=== PATIENT | female | born 1950 | race Caucasian/White ===

== ENCOUNTER 2021-06-06 11:12 | Inpatient (IN) ==
[~2021-06-06 11:12] MED LIST: DOPamine 400MG / 250ML D5W IV ONE; NOREPINEPHRINE/D5W 8 MG/508 ML IV ONE; RAPID SEQUENCE INDUCTION BAG ONE
[2021-06-06] MEDS ORDERED: SODIUM CHLORIDE 0.9% 1000ML 1,000 ML IV ONE ×2 (11:24→14:08)
[2021-06-06] MEDS ORDERED: CEFEPIME 2,000 MG/20 ML VIAL IV STA (11:24)
--- NOTE | 2021-06-06 11:30 | Emergency Department Note ---
Impression & Plan Cardiac arrest due to respiratory disorder, Acute respiratory acidosis, Pulmonary edema, Acute UTI (urinary tract infection), Pleural effusion, bilateral ED Provider Note NAME: GABE LOERA AGE: 70 SEX: F : 1950 ARRIVES VIA: Ambulance INFORMANT: The patient's daughter, EMS personnel ED PROVIDER(S): Kishan Palma DO CHIEF COMPLAINT: Cardiac arrest HPI: The patient is a 70-year-old female who presented to the emergency department for an evaluation after having cardiac arrest. The patient's daughter called 911. The patient was having shortness of breath. Her daughter states that she has had worsening shortness of breath over the course of the last few months. This is gotten worse over the last few days. She did not have a cough but she has had significant shortness of breath especially with exertion. She is set for a cardiac work-up as they thought she might be having CHF. She started having worsening symptoms today 911 was called. The paramedics found the patient in severe respiratory distress with oxygen saturations in the 50s. They felt she needed to be intubated. The patient was given ketamine to try to facilitate intubation but they were unsuccessful. Ultimately the patient had an I gel airway placed. The patient did lose pulses and required CPR for short period of time but came back with atropine and epinephrine. She arrived at the emergency department with the advanced airway in place with a pulse and a blood pressure. The patient was still not able to answer questions as she was given sedation for endotracheal intubation attempts. The patient had seen a dentist recently for an oral infection and was taking clindamycin. According to her daughter she has had no abdominal pain or chest pain. She has had no syncope. The patient does have a history of sepsis in the past also has a history of ovarian and breast cancer. ROS: See above HPI for pertinent positives & negatives. A total of 10 systems reviewed and were otherwise negative. PAST MEDICAL HISTORY: See Below PAST SURGICAL HISTORY: See Below FAMILY HISTORY: See Below SOCIAL HISTORY: See Below HOME MEDICATIONS: See Below ALLERGIES: See Below VITALS: See Below PHYSICAL EXAMINATION: GENERAL: The patient does not follow commands or answer questions. EYES: The conjunctivae are clear. The pupils are round and reactive. EARS, NOSE, MOUTH AND THROAT: The nose is without any evidence of any deformity. I gel is in place. NECK: The neck is nontender and supple. RESPIRATORY: Respirations are noted with bagging. CARDIOVASCULAR: Regular rate and rhythm noted there no murmurs rubs or gallops normal S1 normal S2. GASTROINTESTINAL: The abdomen is soft. Abdomen is nontender. MUSCULOSKELETAL/EXTREMITIES: There is no evidence of gross deformity full range of motion is noted in the hips and shoulders. SKIN: The skin is cold and pale. There is pedal edema bilaterally. NEUROLOGIC: GCS of 3 intubated. MEDICAL DECISION MAKING: The patient is a 70-year-old female who presented to the emergency department for an evaluation after having a respiratory arrest. The patient was found to have bilateral pleural effusions and respiratory acidosis. She also was found to have signs of infection in her mandibular area. The patient was started on clindamycin recently for a dental infection. I discussed the patient's laboratory and radiographic studies with her family members. I also discussed her case with the on-call [facility]ist. The patient was treated with IV fluid boluses in the emergency department. She was stable on the ventilator. She was placed on sedation. I discussed her case with the statement clerk group. She was given IV fluids and IV antibiotics in emergency department. The patient may require thoracentesis. According to the patient's daughter she does not have known metastatic disease but has had ovarian cancer as well as breast cancer. She also has a history of leukemia. Triage Nursing notes reviewed. Prior medical records reviewed Vital Signs: reviewed and remarkable for hypotension and bradycardia. Differential diagnosis: Reactive airway disease, pneumonia, pneumothorax, COPD, CHF, infections, cardiac ischemia, pulmonary embolism, musculoskeletal, gastrointestinal, as well as other pathologies. ER treatment provided: See below Diagnostics interpreted by me: ECG: EKG was obtained in the emergency department. My interpretation is normal sinus rhythm at 67 bpm. There is no ectopy. There is no acute ST segment abnormalities noted. No previous tracing was available. Cardiac Monitoring: An order was placed for continuous cardiac monitoring. The monitor shows a rate of 55 bpm with sinus bradycardia cardiac rhythm. Laboratory studies: As stated above and show below. Imaging studies: See below Consultation(s): I discussed this case with Dr. Shabazz who is on-call for the [facility] hospitalist group. They will evaluate the patient in the emergency department for further management and disposition. I discussed this case with Dr. Norman who is on-call for the statement clerk. ED COURSE: Procedures: Endotracheal Intubation Indication respiratory arrest. The patient was on 100% oxygen via NRB prior to the procedure. Suction, airway equipment, RSI drugs, respiratory equipment, and appropriate personnel were prepared prior to the initiation of the procedure. A time out was taken. Induction was performed with fentanyl and rocuronium. After observing the clinical benefit of the medications, the airway was easily visualized utilizing a glide scope. A 7.5 size ETT tube was placed atraumatically to 23 cm using standard technique. The cuff inflated without signs of malfunction. There were bilateral breath sounds, positive colormetric change, no gastric sounds, a good capnography waveform, and post procedure pulse oximetry was 96%. Post intubation sedation and paralysis was anticipated but not started yet. There were no complications. PDMP:reviewed and no issues Critical Care: I have personally spent greater than 55 minutes of critical care time in the d irect management of this patient. This includes bedside care, interpretation of diagnostic studies, and testing, discussion with consultants, patient, and family members, and other required patient management activities. This 55 minutes is in excess of all separately billable procedures. Past Med/Surg History Medical History Atrial fibrillation History of breast cancer History of ovarian cancer Hypertension Sepsis Surgical History H/O mastectomy Hx of cholecystectomy S/P MICHEL-BSO Social History Smoking Status: Never smoker Feels Safe at Home: Yes Allergies Allergies Allergy/AdvReac Type Severity Reaction Status Date / Time amoxicillin Allergy Unknown Unverified 06/06/21 12:18 Home Meds Home Medications Medication Instructions Recorded Confirmed acetaminophen 325 mg tablet 325 mg PO QID PRN 06/06/21 06/06/21 amiodarone 100 mg tablet 100 mg PO DAILY 06/06/21 06/06/21 amlodipine 10 mg tablet 10 mg PO DAILY 06/06/21 06/06/21 bosutinib 400 mg tablet (Bosulif) 400 mg PO DAILY 06/06/21 06/06/21 clindamycin HCl 300 mg capsule 300 mg PO TID 06/06/21 06/06/21 furosemide 40 mg tablet 40 mg PO BID 06/06/21 06/06/21 levothyroxine 75 mcg tablet 75 mcg PO DAILY 06/06/21 06/06/21 metoprolol tartrate 25 mg tablet 25 mg PO BID 06/06/21 06/06/21 ggypfleh-ifwdtfc-hwmh-iron 18 1 tab PO DAILY 06/06/21 06/06/21 mg-FA 400 mcg-vit K 25 mcg tablet (One-A-Day Women's Complete) polysaccharide iron complex 150 mg 150 mg PO DAILY 06/06/21 06/06/21 iron capsule (Ferrex) potassium chloride 20 mEq See Rx Instructions .ROUTE .COMPLEX 06/06/21 06/06/21 tablet,extended release(part/cryst) (Klor-Con M) rivaroxaban 20 mg tablet (Xarelto) 20 mg PO HS 06/06/21 06/06/21 Results & Data (ED) Vital Signs Vital Signs - 24 hr 06/06/21 11:16 06/06/21 11:20 06/06/21 11:26 Pulse Rate 68 66 Pulse Rate [Right Apical] Pulse Rate from SpO2 Sensor 66 Pulse Rhythm Regular Pulse Rhythm [Right Apical] Pulse Strength Normal Respiratory Rate 24 15 Respiratory Effort / Characteristics Mechanically Ventilated Respiratory Depth Normal Respiratory Pattern Regular Blood Pressure 102/51 L Blood Pressure [Right Calf] Blood Pressure Mean 68 Blood Pressure Mean [Right Calf] Blood Pressure Position Lying Blood Pressure Position [Right Calf] Pulse Oximetry 96 98 Oxygen Delivery Method Mechanical Vent Ambu-Bag Fraction of Inspired Oxygen SaO2/FiO2 Ratio Sepsis Recent Fever Within 48 Hours No Sepsis New/Unexplained Change in Mental Status N/A Sepsis Action Taken by Nursing No Action Required End-Tidal CO2 End Tidal CO2 (18-54mmHg) 06/06/21 11:27 06/06/21 11:28 06/06/21 11:30 Pulse Rate 61 Pulse Rate [Right Apical] Pulse Rate from SpO2 Sensor 61 Pulse Rhythm Pulse Rhythm [Right Apical] Pulse Strength Respiratory Rate 18 Respiratory Effort / Characteristics Mechanically Ventilated Respiratory Depth Respiratory Pattern Blood Pressure Blood Pressure [Right Calf] Blood Pressure Mean Blood Pressure Mean [Right Calf] Blood Pressure Position Blood Pressure Position [Right Calf] Pulse Oximetry 100 100 Oxygen Delivery Method Mechanical Vent Fraction of Inspired Oxygen SaO2/FiO2 Ratio Sepsis Recent Fever Within 48 Hours Sepsis New/Unexplained Change in Mental Status Sepsis Action Taken by Nursing End-Tidal CO2 End Tidal CO2 (18-54mmHg) 06/06/21 11:38 06/06/21 11:40 06/06/21 12:30 Pulse Rate 61 60 Pulse Rate [Right Apical] Pulse Rate from SpO2 Sensor 64 Pulse Rhythm Pulse Rhythm [Right Apical] Pulse Strength Respiratory Rate 22 23 22 Respiratory Effort / Characteristics Respiratory Depth Respiratory Pattern Blood Pressure 94/47 L Blood Pressure [Right Calf] Blood Pressure Mean 62 Blood Pressure Mean [Right Calf] Blood Pressure Position Blood Pressure Position [Right Calf] Pulse Oximetry 98 96 Oxygen Delivery Method Fraction of Inspired Oxygen 100 60 SaO2/FiO2 Ratio Sepsis Recent Fever Within 48 Hours Sepsis New/Unexplained Change in Mental Status Sepsis Action Taken by Nursing End-Tidal CO2 55 54 End Tidal CO2 (18-54mmHg) 06/06/21 12:37 06/06/21 12:58 06/06/21 13:02 Pulse Rate Pulse Rate [Right Apical] 63 65 63 Pulse Rate from SpO2 Sensor Pulse Rhythm Pulse Rhythm [Right Apical] Pulse Strength Respiratory Rate 22 24 24 Respiratory Effort / Characteristics Mechanically Ventilated Mechanically Ventilated Respiratory Depth Respiratory Pattern Blood Pressure Blood Pressure [Right Calf] 136/44 L 140/52 L 146/55 H Blood Pressure Mean Blood Pressure Mean [Right Calf] 74 81 85 Blood Pressure Position Blood Pressure Position [Right Calf] Lying Lying Pulse Oximetry 96 95 95 Oxygen Delivery Method Mechanical Vent Mechanical Vent Mechanical Vent Fraction of Inspired Oxygen 60 SaO2/FiO2 Ratio 160 Sepsis Recent Fever Within 48 Hours Sepsis New/Unexplained Change in Mental Status Sepsis Action Taken by Nursing End-Tidal CO2 End Tidal CO2 (18-54mmHg) 47 06/06/21 13:15 06/06/21 13:30 06/06/21 13:40 Pulse Rate 63 63 Pulse Rate [Right Apical] 62 Pulse Rate from SpO2 Sensor 62 63 Pulse Rhythm Pulse Rhythm [Right Apical] Regular Pulse Strength Respiratory Rate 24 27 H 29 H Respiratory Effort / Characteristics Respiratory Depth Respiratory Pattern Blood Pressure 149/56 H Blood Pressure [Right Calf] 150/62 H Blood Pressure Mean 87 Blood Pressure Mean [Right Calf] 91 Blood Pressure Position Blood Pressure Position [Right Calf] Pulse Oximetry 96 92 91 Oxygen Delivery Method Mechanical Vent Mechanical Vent Fraction of Inspired Oxygen SaO2/FiO2 Ratio Sepsis Recent Fever Within 48 Hours Sepsis New/Unexplained Change in Mental Status Sepsis Action Taken by Nursing End-Tidal CO2 40 40 End Tidal CO2 (18-54mmHg) 06/06/21 13:45 06/06/21 13:50 06/06/21 14:00 Pulse Rate 61 59 L Pulse Rate [Right Apical] 61 59 L Pulse Rate from SpO2 Sensor 62 60 Pulse Rhythm Pulse Rhythm [Right Apical] Pulse Strength Respiratory Rate 28 H 29 H 32 H Respiratory Effort / Characteristics Mechanically Ventilated Respiratory Depth Normal Respiratory Pattern Blood Pressure Blood Pressure [Right Calf] 141/70 H 135/51 L Blood Pressure Mean Blood Pressure Mean [Right Calf] 93 79 Blood Pressure Position Blood Pressure Position [Right Calf] Lying Lying Pulse Oximetry 93 95 90 Oxygen Delivery Method Mechanical Vent Mechanical Vent Fraction of Inspired Oxygen SaO2/FiO2 Ratio Sepsis Recent Fever Within 48 Hours Sepsis New/Unexplained Change in Mental Status Sepsis Action Taken by Nursing End-Tidal CO2 39 43 End Tidal CO2 (18-54mmHg) 06/06/21 14:10 06/06/21 14:15 06/06/21 14:21 Pulse Rate 59 L 56 L Pulse Rate [Right Apical] 58 L Pulse Rate from SpO2 Sensor 59 L 56 L Pulse Rhythm Pulse Rhythm [Right Apical] Pulse Strength Respiratory Rate 27 H 25 H 22 Respiratory Effort / Characteristics Respiratory Depth Respiratory Pattern Blood Pressure Blood Pressure [Right Calf] 118/48 L Blood Pressure Mean Blood Pressure Mean [Right Calf] 71 Blood Pressure Position Blood Pressure Position [Right Calf] Pulse Oximetry 83 L 90 84 L Oxygen Delivery Method Mechanical Vent Fraction of Inspired Oxygen SaO2/FiO2 Ratio Sepsis Recent Fever Within 48 Hours Sepsis New/Unexplained Change in Mental Status Sepsis Action Taken by Nursing End-Tidal CO2 40 43 End Tidal CO2 (18-54mmHg) 06/06/21 14:30 06/06/21 14:40 Pulse Rate 55 L 55 L Pulse Rate [Right Apical] Pulse Rate from SpO2 Sensor 55 L 55 L Pulse Rhythm Pulse Rhythm [Right Apical] Pulse Strength Respiratory Rate 22 22 Respiratory Effort / Characteristics Respiratory Depth Respiratory Pattern Blood Pressure 96/53 L 95/55 L Blood Pressure [Right Calf] Blood Pressure Mean 67 68 Blood Pressure Mean [Right Calf] Blood Pressure Position Blood Pressure Position [Right Calf] Pulse Oximetry 94 94 Oxygen Delivery Method Fraction of Inspired Oxygen 80 SaO2/FiO2 Ratio Sepsis Recent Fever Within 48 Hours Sepsis New/Unexplained Change in Mental Status Sepsis Action Taken by Nursing End-Tidal CO2 42 44 End Tidal CO2 (18-54mmHg) Home Medications Current Medication List: was personally reviewed by me Laboratory Data Attestation: I reviewed the patient's lab results. Result diagrams: 06/06/21 11:20 06/06/21 11:20 Lab Results 06/06/21 06/06/21 06/06/21 Range/Units 11:20 11:20 11:20 WBC 13.44 H (4.8-10.8) K/uL RBC 4.35 (4.2-5.4) M/uL Hgb 10.3 L (12.0-16.0) g/dL POC Hgb (12.0-16.0) g/dl Hct 36.8 L (37-47) % POC Hct (37-47) % MCV 84.6 (80-100) fL MCH 23.7 L (25-34) pg MCHC 28.0 L (32-36) g/dL RDW Std Deviation 51.1 H (36.4-46.3) fL RDW Coeff of Kvng 16.6 H (11.5-14.5) % Plt Count 462 H (130-400) K/uL MPV 10.5 H (7.4-10.4) fL Immature Gran % (Auto) 0.7 % Neut % (Auto) 83.7 % Lymph % (Auto) 10.7 % [place] % (Auto) 4.5 % Eos % (Auto) 0.1 % Baso % (Auto) 0.3 % Neut # (Auto) 11.25 H (1.4-6.5) K/uL Lymph # (Auto) 1.44 (1.2-3.4) K/uL [place] # (Auto) 0.61 H (0.11-0.59) K/uL Eos # (Auto) 0.01 (0-0.5) K/uL Baso # (Auto) 0.04 (0-0.2) K/uL Immature Gran # (Auto) 0.09 H (0.00-0.02) K/uL Polychromasia 1+ Hypochromasia Present PT 14.6 H (9.0-12.0) Seconds INR 1.5 H (0.9-1.1) APTT 33.4 H (21.0-31.0) Seconds PTT Ratio 1.3 VBG pH (7.36-7.41) VBG pCO2 (38-50) mmHg VBG pO2 mmHg VBG HCO3 mmol/L VBG O2 Saturation % VBG Base Excess mEq/L Barometric Pressure mm/Hg POC Sodium (135-144) mmol/L Sodium 138 (136-145) mmol/L POC Potassium (3.3-5.0) mmol/L Potassium 3.8 (3.5-5.1) mmol/L POC Chloride (101-112) mmol/L Chloride 101 (98-107) mmol/L Carbon Dioxide 26 (21-32) mmol/L POC Total CO2 (24-31) mmol/L Anion Gap 11.0 (3-11) POC Anion Gap (16-25) mmol/L POC BUN (7-18) mg/dl BUN 38 H (7-18) mg/dl Creatinine 2.69 H (0.6-1.2) mg/dl POC Creatinine (0.6-1.3) mg/dl Est Cr Clr Drug Dosing 25.5 ml/min Est GFR ( Amer) 20.0 ml/min Est GFR (Non-Af Amer) 17.2 ml/min BUN/Creatinine Ratio 14.2 (10-20) Glucose 214 H (70-99) mg/dl POC Glucose (other) (70-99) mg/dl Lactate (0.4-2.0) mmol/L Calcium 8.1 L (8.5-10.1) mg/dl POC Ioniz Calcium Opal (1.12-1.32) mmol/l Magnesium 2.5 H (1.8-2.4) mg/dl Total Bilirubin 0.6 (0.2-1) mg/dl AST 129 H (15-37) U/L ALT 145 H (12-78) Alkaline Phosphatase 172 H (45-117) U/L Troponin I 0.355 H* (0-0.045) ng/ml Total Protein 7.2 (6.4-8.2) gm/dl Albumin 3.2 L (3.4-5.0) gm/dl Globulin 4.0 (2.5-4.0) gm/dl Albumin/Globulin Ratio 0.8 L (0.9-2) Procalcitonin (0-0.5) ng/ml Urine Color Urine Appearance (Clear) Urine pH (4.5-7.5) Ur Specific [place] (1.000-1.030) Urine Protein (Negative) Urine Glucose (UA) (Negative) Urine Ketones (Negative) Urine Blood (Negative) Urine Nitrite (Negative) Urine Bilirubin (Negative) Urine Urobilinogen (Negative) Ur Leukocyte Esterase (Negative) Urine WBC (Auto) (0-5) /hpf Urine RBC (Auto) (0-4) /hpf U Hyaline Cast (Auto) (0-5) /lpf U Epithel Cells (Auto) (0-5) /lpf Urine Bacteria (Auto) (Negative) Ur Renal Epithelial Cell (0-5) /lpf Urine Mucus (None Prsent) Urine Yeast Adenovirus (PCR) (NotDetected) B. pertussis DNA (PCR) (NotDetected) B.parapertussis DNA PCR (NotDetected) C. pneumoniae DNA (PCR) (NotDetected) Coronavirus OC43 (PCR) (NotDetected) Coronavirus HKU1 (PCR) (NotDetected) Coronavirus 229E (PCR) (NotDetected) SARS-CoV-2 (PCR) (NotDetected) Coronavirus NL63 (PCR) (NotDetected) Human Metapneumovir PCR (NotDetected) Influenza Type A (PCR) (NotDetected) Influenza Type B (PCR) (NotDetected) M. pneumoniae (PCR) (NotDetected) Parainfluenza 1 (PCR) (NotDetected) Parainfluenza 2 (PCR) (NotDetected) Parainfluenza 3 (PCR) (NotDetected) Parainfluenza 4 (PCR) (NotDetected) RSV (PCR) (NotDetected) Entero/Rhino (PCR) (NotDetected) 06/06/21 06/06/21 06/06/21 Range/Units 11:20 11:20 11:20 WBC (4.8-10.8) K/uL RBC (4.2-5.4) M/uL Hgb (12.0-16.0) g/dL POC Hgb (12.0-16.0) g/dl Hct (37-47) % POC Hct (37-47) % MCV (80-100) fL MCH (25-34) pg MCHC (32-36) g/dL RDW Std Deviation (36.4-46.3) fL RDW Coeff of Kvng (11.5-14.5) % Plt Count (130-400) K/uL MPV (7.4-10.4) fL Immature Gran % (Auto) % Neut % (Auto) % Lymph % (Auto) % [place] % (Auto) % Eos % (Auto) % Baso % (Auto) % Neut # (Auto) (1.4-6.5) K/uL Lymph # (Auto) (1.2-3.4) K/uL [place] # (Auto) (0.11-0.59) K/uL Eos # (Auto) (0-0.5) K/uL Baso # (Auto) (0-0.2) K/uL Immature Gran # (Auto) (0.00-0.02) K/uL Polychromasia Hypochromasia PT (9.0-12.0) Seconds INR (0.9-1.1) APTT (21.0-31.0) Seconds PTT Ratio VBG pH 7.06 L (7.36-7.41) VBG pCO2 102 H (38-50) mmHg VBG pO2 58 mmHg VBG HCO3 28 mmol/L VBG O2 Saturation 74.6 % VBG Base Excess -4.1 mEq/L Barometric Pressure 722.4 mm/Hg POC Sodium (135-144) mmol/L Sodium (136-145) mmol/L POC Potassium (3.3-5.0) mmol/L Potassium (3.5-5.1) mmol/L POC Chloride (101-112) mmol/L Chloride (98-107) mmol/L Carbon Dioxide (21-32) mmol/L POC Total CO2 (24-31) mmol/L Anion Gap (3-11) POC Anion Gap (16-25) mmol/L POC BUN (7-18) mg/dl BUN (7-18) mg/dl Creatinine (0.6-1.2) mg/dl POC Creatinine (0.6-1.3) mg/dl Est Cr Clr Drug Dosing ml/min Est GFR ( Amer) ml/min Est GFR (Non-Af Amer) ml/min BUN/Creatinine Ratio (10-20) Glucose (70-99) mg/dl POC Glucose (other) (70-99) mg/dl Lactate 5.7 H* (0.4-2.0) mmol/L Calcium (8.5-10.1) mg/dl POC Ioniz Calcium Opal (1.12-1.32) mmol/l Magnesium (1.8-2.4) mg/dl Total Bilirubin (0.2-1) mg/dl AST (15-37) U/L ALT (12-78) Alkaline Phosphatase (45-117) U/L Troponin I (0-0.045) ng/ml Total Protein (6.4-8.2) gm/dl Albumin (3.4-5.0) gm/dl Globulin (2.5-4.0) gm/dl Albumin/Globulin Ratio (0.9-2) Procalcitonin 0.13 (0-0.5) ng/ml Urine Color Urine Appearance (Clear) Urine pH (4.5-7.5) Ur Specific [place] (1.000-1.030) Urine Protein (Negative) Urine Glucose (UA) (Negative) Urine Ketones (Negative) Urine Blood (Negative) Urine Nitrite (Negative) Urine Bilirubin (Negative) Urine Urobilinogen (Negative) Ur Leukocyte Esterase (Negative) Urine WBC (Auto) (0-5) /hpf Urine RBC (Auto) (0-4) /hpf U Hyaline Cast (Auto) (0-5) /lpf U Epithel Cells (Auto) (0-5) /lpf Urine Bacteria (Auto) (Negative) Ur Renal Epithelial Cell (0-5) /lpf Urine Mucus (None Prsent) Urine Yeast Adenovirus (PCR) (NotDetected) B. pertussis DNA (PCR) (NotDetected) B.parapertussis DNA PCR (NotDetected) C. pneumoniae DNA (PCR) (NotDetected) Coronavirus OC43 (PCR) (NotDetected) Coronavirus HKU1 (PCR) (NotDetected) Coronavirus 229E (PCR) (NotDetected) SARS-CoV-2 (PCR) (NotDetected) Coronavirus NL63 (PCR) (NotDetected) Human Metapneumovir PCR (NotDetected) Influenza Type A (PCR) (NotDetected) Influenza Type B (PCR) (NotDetected) M. pneumoniae (PCR) (NotDetected) Parainfluenza 1 (PCR) (NotDetected) Parainfluenza 2 (PCR) (NotDetected) Parainfluenza 3 (PCR) (NotDetected) Parainfluenza 4 (PCR) (NotDetected) RSV (PCR) (NotDetected) Entero/Rhino (PCR) (NotDetected) 06/06/21 06/06/21 06/06/21 Range/Units 11:24 11:30 11:41 WBC (4.8-10.8) K/uL RBC (4.2-5.4) M/uL Hgb (12.0-16.0) g/dL POC Hgb 12.6 (12.0-16.0) g/dl Hct (37-47) % POC Hct 37 (37-47) % MCV (80-100) fL MCH (25-34) pg MCHC (32-36) g/dL RDW Std Deviation (36.4-46.3) fL RDW Coeff of Kvng (11.5-14.5) % Plt Count (130-400) K/uL MPV (7.4-10.4) fL Immature Gran % (Auto) % Neut % (Auto) % Lymph % (Auto) % [place] % (Auto) % Eos % (Auto) % Baso % (Auto) % Neut # (Auto) (1.4-6.5) K/uL Lymph # (Auto) (1.2-3.4) K/uL [place] # (Auto) (0.11-0.59) K/uL Eos # (Auto) (0-0.5) K/uL Baso # (Auto) (0-0.2) K/uL Immature Gran # (Auto) (0.00-0.02) K/uL Polychromasia Hypochromasia PT (9.0-12.0) Seconds INR (0.9-1.1) APTT (21.0-31.0) Seconds PTT Ratio VBG pH (7.36-7.41) VBG pCO2 (38-50) mmHg VBG pO2 mmHg VBG HCO3 mmol/L VBG O2 Saturation % VBG Base Excess mEq/L Barometric Pressure mm/Hg POC Sodium 136 (135-144) mmol/L Sodium (136-145) mmol/L POC Potassium 3.8 (3.3-5.0) mmol/L Potassium (3.5-5.1) mmol/L POC Chloride 97 L (101-112) mmol/L Chloride (98-107) mmol/L Carbon Dioxide (21-32) mmol/L POC Total CO2 27 (24-31) mmol/L Anion Gap (3-11) POC Anion Gap 17.0 (16-25) mmol/L POC BUN 38 H (7-18) mg/dl BUN (7-18) mg/dl Creatinine (0.6-1.2) mg/dl POC Creatinine 2.4 H (0.6-1.3) mg/dl Est Cr Clr Drug Dosing ml/min Est GFR ( Amer) ml/min Est GFR (Non-Af Amer) ml/min BUN/Creatinine Ratio (10-20) Glucose (70-99) mg/dl POC Glucose (other) 210 H (70-99) mg/dl Lactate (0.4-2.0) mmol/L Calcium (8.5-10.1) mg/dl POC Ioniz Calcium Opal 1.14 (1.12-1.32) mmol/l Magnesium (1.8-2.4) mg/dl Total Bilirubin (0.2-1) mg/dl AST (15-37) U/L ALT (12-78) Alkaline Phosphatase (45-117) U/L Troponin I (0-0.045) ng/ml Total Protein (6.4-8.2) gm/dl Albumin (3.4-5.0) gm/dl Globulin (2.5-4.0) gm/dl Albumin/Globulin Ratio (0.9-2) Procalcitonin (0-0.5) ng/ml Urine Color Dark Yellow Urine Appearance Cloudy A (Clear) Urine pH 5.0 (4.5-7.5) Ur Specific [place] 1.020 (1.000-1.030) Urine Protein 2+ H (Negative) Urine Glucose (UA) Negative (Negative) Urine Ketones Trace H (Negative) Urine Blood Negative (Negative) Urine Nitrite Negative (Negative) Urine Bilirubin 1+ H (Negative) Urine Urobilinogen Negative (Negative) Ur Leukocyte Esterase 1+ H (Negative) Urine WBC (Auto) 10-30 H (0-5) /hpf Urine RBC (Auto) 0-4 (0-4) /hpf U Hyaline Cast (Auto) 10-30 H (0-5) /lpf U Epithel Cells (Auto) >30 H (0-5) /lpf Urine Bacteria (Auto) 1+ H (Negative) Ur Renal Epithelial Cell 5-10 H (0-5) /lpf Urine Mucus Present A (None Prsent) Urine Yeast Not Reportable Adenovirus (PCR) Not Detected (NotDetected) B. pertussis DNA (PCR) Not Detected (NotDetected) B.parapertussis DNA PCR Not Detected (NotDetected) C. pneumoniae DNA (PCR) Not Detected (NotDetected) Coronavirus OC43 (PCR) Not Detected (NotDetected) Coronavirus HKU1 (PCR) Not Detected (NotDetected) Coronavirus 229E (PCR) Not Detected (NotDetected) SARS-CoV-2 (PCR) Not Detected (NotDetected) Coronavirus NL63 (PCR) Not Detected (NotDetected) Human Metapneumovir PCR Not Detected (NotDetected) Influenza Type A (PCR) Not Detected (NotDetected) Influenza Type B (PCR) Not Detected (NotDetected) M. pneumoniae (PCR) Not Detected (NotDetected) Parainfluenza 1 (PCR) Not Detected (NotDetected) Parainfluenza 2 (PCR) Not Detected (NotDetected) Parainfluenza 3 (PCR) Not Detected (NotDetected) Parainfluenza 4 (PCR) Not Detected (NotDetected) RSV (PCR) Not Detected (NotDetected) Entero/Rhino (PCR) Not Detected (NotDetected) 06/06/21 Range/Units 13:01 WBC (4.8-10.8) K/uL RBC (4.2-5.4) M/uL Hgb (12.0-16.0) g/dL POC Hgb (12.0-16.0) g/dl Hct (37-47) % POC Hct (37-47) % MCV (80-100) fL MCH (25-34) pg MCHC (32-36) g/dL RDW Std Deviation (36.4-46.3) fL RDW Coeff of Kvng (11.5-14.5) % Plt Count (130-400) K/uL MPV (7.4-10.4) fL Immature Gran % (Auto) % Neut % (Auto) % Lymph % (Auto) % [place] % (Auto) % Eos % (Auto) % Baso % (Auto) % Neut # (Auto) (1.4-6.5) K/uL Lymph # (Auto) (1.2-3.4) K/uL [place] # (Auto) (0.11-0.59) K/uL Eos # (Auto) (0-0.5) K/uL Baso # (Auto) (0-0.2) K/uL Immature Gran # (Auto) (0.00-0.02) K/uL Polychromasia Hypochromasia PT (9.0-12.0) Seconds INR (0.9-1.1) APTT (21.0-31.0) Seconds PTT Ratio VBG pH (7.36-7.41) VBG pCO2 (38-50) mmHg VBG pO2 mmHg VBG HCO3 mmol/L VBG O2 Saturation % VBG Base Excess mEq/L Barometric Pressure mm/Hg POC Sodium (135-144) mmol/L Sodium (136-145) mmol/L POC Potassium (3.3-5.0) mmol/L Potassium (3.5-5.1) mmol/L POC Chloride (101-112) mmol/L Chloride (98-107) mmol/L Carbon Dioxide (21-32) mmol/L POC Total CO2 (24-31) mmol/L Anion Gap (3-11) POC Anion Gap (16-25) mmol/L POC BUN (7-18) mg/dl BUN (7-18) mg/dl Creatinine (0.6-1.2) mg/dl POC Creatinine (0.6-1.3) mg/dl Est Cr Clr Drug Dosing ml/min Est GFR ( Amer) ml/min Est GFR (Non-Af Amer) ml/min BUN/Creatinine Ratio (10-20) Glucose (70-99) mg/dl POC Glucose (other) (70-99) mg/dl Lactate 2.7 H* (0.4-2.0) mmol/L Calcium (8.5-10.1) mg/dl POC Ioniz Calcium Opal (1.12-1.32) mmol/l Magnesium (1.8-2.4) mg/dl Total Bilirubin (0.2-1) mg/dl AST (15-37) U/L ALT (12-78) Alkaline Phosphatase (45-117) U/L Troponin I (0-0.045) ng/ml Total Protein (6.4-8.2) gm/dl Albumin (3.4-5.0) gm/dl Globulin (2.5-4.0) gm/dl Albumin/Globulin Ratio (0.9-2) Procalcitonin (0-0.5) ng/ml Urine Color Urine Appearance (Clear) Urine pH (4.5-7.5) Ur Specific Clay (1.000-1.030) Urine Protein (Negative) Urine Glucose (UA) (Negative) Urine Ketones (Negative) Urine Blood (Negative) Urine Nitrite (Negative) Urine Bilirubin (Negative) Urine Urobilinogen (Negative) Ur Leukocyte Esterase (Negative) Urine WBC (Auto) (0-5) /hpf Urine RBC (Auto) (0-4) /hpf U Hyaline Cast (Auto) (0-5) /lpf U Epithel Cells (Auto) (0-5) /lpf Urine Bacteria (Auto) (Negative) Ur Renal Epithelial Cell (0-5) /lpf Urine Mucus (None Prsent) Urine Yeast Adenovirus (PCR) (NotDetected) B. pertussis DNA (PCR) (NotDetected) B.parapertussis DNA PCR (NotDetected) C. pneumoniae DNA (PCR) (NotDetected) Coronavirus OC43 (PCR) (NotDetected) Coronavirus HKU1 (PCR) (NotDetected) Coronavirus 229E (PCR) (NotDetected) SARS-CoV-2 (PCR) (NotDetected) Coronavirus NL63 (PCR) (NotDetected) Human Metapneumovir PCR (NotDetected) Influenza Type A (PCR) (NotDetected) Influenza Type B (PCR) (NotDetected) M. pneumoniae (PCR) (NotDetected) Parainfluenza 1 (PCR) (NotDetected) Parainfluenza 2 (PCR) (NotDetected) Parainfluenza 3 (PCR) (NotDetected) Parainfluenza 4 (PCR) (NotDetected) RSV (PCR) (NotDetected) Entero/Rhino (PCR) (NotDetected) Administered Medications Propofol (Diprivan) 1,000 mg in 100 mls @ 17.25 mls/hr IV .Q5H48M STEFANO; Protocol Stop: 06/09/21 13:14 Last Titration: 06/06/21 14:04 Dose: 35 mcg/kg/min, 24.2 mls/hr Documented by: [id number] Titration: 06/06/21 13:50 Dose: 30 mcg/kg/min, 20.7 mls/hr Documented by: [id number] Titration: 06/06/21 13:38 Dose: 25 mcg/kg/min, 17.3 mls/hr Documented by: [id number] Admin: 06/06/21 13:16 Dose: 20 mcg/kg/min, 13.8 mls/hr Documented by: [id number] Cosigned by: [id number] Sodium Chloride (Nss 1000ml) 1,000 mls @ 999 mls/hr IV .Q1H1M ONE Stop: 06/06/21 15:08 Last Admin: 06/06/21 14:23 Dose: 999 mls/hr Documented by: [id number] Discontinued Medications Dopamine HCl/Dextrose (Dopamine 400mg / 250ml D5w) Confirm Administered Dose 400 mg IV .STK-MED ONE Stop: 06/06/21 11:02 Last Admin: 06/06/21 12:42 Dose: Not Given Documented by: [id number] Sodium Chloride (Nss 1000ml) 1,000 mls @ 999 mls/hr IV .Q1H1M ONE Stop: 06/06/21 12:24 Last Infusion: 06/06/21 13:46 Dose: 0 mls/hr Documented by: [id number] Admin: 06/06/21 12:42 Dose: 999 mls/hr Documented by: [id number] Cefepime HCl (Maxipime) 2,000 mg in 20 mls @ 5 mls/min IV NOW STA; Protocol Stop: 06/06/21 11:27 Last Admin: 06/06/21 12:42 Dose: 5 mls/min Documented by: [id number] Miscellaneous (Rapid Sequence Induction Bag) Confirm Administered Dose 1 ea .ROUTE .STK-MED ONE Stop: 06/06/21 10:55 Last Admin: 06/06/21 12:42 Dose: Not Given Documented by: [id number] Miscellaneous (Stat Iv Infusion Titration Per Protocol) 1 ea N/A NOW STA Stop: 06/06/21 13:11 Last Admin: 06/06/21 13:45 Dose: Not Given Documented by: [id number] Norepinephrine Bitartrate (Norepinephrine/D5w 8 Mg/508 Ml) Confirm Administered Dose 8 mg IV .STK-MED ONE Stop: 06/06/21 11:02 Last Admin: 06/06/21 12:42 Dose: Not Given Documented by: [id number] Imaging Data Radiologist's Impression: Chest X-Ray 06/06/21 11:02 XR chest 1V portable CLINICAL HISTORY: SEPSIS. Evaluate cardiopulmonary status. Status post intubation COMPARISON STUDY: No previous studies for comparison. TECHNIQUE: 1 view of the chest FINDINGS: Single frontal view of the chest demonstrates the cardiomediastinal silhouette to be within normal limits. Endotracheal tube has been placed with its tip 6.0 cm above the lawrence. Compared to previous examination, there is evidence for diffuse interstitial edema most characteristic of congestive heart failure. No definite focal alveolar opacities or bronchograms are seen. There are again bilateral pleural effusions, right greater than left. There is no acute osseous pathology. IMPRESSION: Status post intubation with diffuse interstitial edema most characteristic of congestive heart failure. Bilateral pleural effusions, right greater than left are also present. ACT 112: Negative or not required by law. Electronically signed by: Chuck Quintero M.D. 06/06/2021 11:[address] 06/06/21 11:24 CT head/brain wo con CLINICAL HISTORY: ams . Post cardiac arrest COMPARISON STUDY: No previous studies for comparison. TECHNIQUE: Standard CT of the Brain was performed without IV contrast. A dose lowering technique was utilized adhering to the principles of ALARA. FINDINGS: Extraaxial space: There is no evidence for subdural hematoma. There are no extra-axial fluid collections. Ventricles and cisterns: The ventricles are normal in size and configuration. There is no evidence for midline shift or mass effect. Parenchyma: There is no subarachnoid or intraparenchymal hemorrhage. There is no evidence for an acute infarct or cerebral edema. There is homogeneous attenuation of the brain parenchyma. There are no gross mass lesions. Osseous structures: There is no evidence for an acute fracture. The visualized paranasal sinuses are clear. The mastoid air cells are clear bilaterally. Soft tissues: There is no evidence for focal soft tissue swelling. IMPRESSION: No acute intracerebral pathology. ACT 112: Negative or not required by law. Electronically signed by: Chuck Quintero M.D. 06/06/2021 12:53 PM Abdomen/Pelvis CT 06/06/21 11:31 CT abd pelvis wo con CLINICAL HISTORY: post cardiac arrest . History of abdominal pain COMPARISON STUDY: No previous studies for comparison. CT DOSE: 3062.82 mGy.cm TECHNIQUE: Standard CT of the Abdomen and Pelvis was performed without IV contrast. The patient did not receive oral contrast. A dose lowering technique was utilized adhering to the principles of ALARA. FINDINGS: Lung base: There are large bilateral pleural effusions at the lung bases, right slightly greater than left. Compressive atelectasis/collapse is present of both lower lobes. Abdominal cavity: There is no evidence for abdominal mass, adenopathy or ascites. Liver: The liver is homogeneous in attenuation on these limited noncontrast images.. Spleen: The spleen is homogeneous in attenuation on these limited noncontrast images. Pancreas: The pancreas is homogeneous in attenuation on these limited noncontrast images. Gall Bladder: Surgical clips are present from previous cholecystectomy. Adrenal glands: The adrenal glands are normal in size and attenuation on these limited noncontrast images. Kidneys: The kidneys are homogeneous in attenuation on these limited noncontrast images. There is no evidence for gross renal mass, calculus or hydronephrosis bilaterally. Bowel: The bowel loops are normally placed within the abdomen and pelvis without evidence for dilatation or obstruction. There is no evidence for mass lesion. There are no inflammatory changes present. There is no evidence for free air. There is a normal appendix in the right lower quadrant. Bladder: Marte catheter is present within the bladder. : There is no evidence for pelvic mass or adenopathy. There is evidence of previous hysterectomy. Vasculature: There is no evidence for focal aneurysmal dilatation of the abdominal aorta. Mild atherosclerotic calcification is present. Osseous structures: There is no acute osseous pathology. Mild degenerative changes are seen within the spine. IMPRESSION: 1. Large bilateral pleural effusions with compressive atelectasis/collapse of both lower lobes, right greater than left. 2. No acute intra-abdominal or pelvic abnormality on these limited noncontrast images. 3. Nonacute findings are delineated above. ACT 112: Negative or not required by law. Electronically signed by: Chuck Quintero M.D. 06/06/2021 12:[address] 06/06/21 11:31 CT chest diagnostic wo con CLINICAL HISTORY: Shortness of breath. Status post cardiac arrest. COMPARISON STUDY: Portable chest from 06/06/2021 TECHNIQUE: Standard CT of the Chest was performed without IV contrast. A dose lowering technique was utilized adhering to the principles of ALARA. FINDINGS: Airway: The airway is clear. No endobronchial lesion is identified. Lungs and pleura: There are very large bilateral pleural effusions, right greater than left with compressive atelectasis/collapse involving the right low er lobe and portions of the right upper lobe along with the left lower lobe. There is actually no evidence for diffuse interstitial edema as suspected radiographically. The very large pleural effusions accounts for the density seen radiographically. No confluent alveolar opacities are identified. Mediastinum: There is no evidence for pathologic adenopathy on these limited noncontrast images. The heart size is within normal limits. There is coronary artery calcification present. The thoracic aorta is within normal limits. Atherosclerotic calcification is present. There is no evidence for pericardial effusion. Osseous structures: There is no acute osseous pathology. IMPRESSION: 1. Very large bilateral pleural effusions with compressive atelectasis/collapse of both lower lobes, right greater than left. 2. No evidence for pulmonary edema. 3. Coronary artery calcification. ACT 112: Negative or not required by law. Electronically signed by: Chuck Quintero M.D. 06/06/2021 1:[address] 06/06/21 11:31 CT soft tissue neck wo con CLINICAL HISTORY: dental infection . Postcardiac arrest COMPARISON STUDY: No previous studies for comparison. TECHNIQUE: Standard CT of the Neck was performed without IV contrast. A dose lowering technique was utilized adhering to the principles of ALARA. FINDINGS: The study is limited by lack of intravenous contrast. An endotracheal tube is in place. Salivary glands: Parotid and submandibular salivary glands are within normal limits. The thyroid gland is heterogeneous in attenuation bilaterally. Lymph nodes: There are no pathologically enlarged lymph nodes. There is no evidence for soft tissue mass within the neck bilaterally. Airway: The cervical airway cannot be fully evaluated due to the placement of endotracheal tube. The epiglottis and aryepiglottic folds are normal bilaterally. The vocal cords are symmetric bilaterally. Vascular structures: No gross vascular abnormalities are seen. Paranasal sinuses:The imaged paranasal sinuses are clear. Osseous structures: There is a lucency present within the body of the mandible on the right with adjacent soft tissue swelling of the right side of the face. Focal fluid collection is seen adjacent to the body of the mandible. These findings are most characteristic of a mandibular abscess at this site. Posterior molars on the right are absent. IMPRESSION: 1. Limited examination due to lack of intravenous contrast and endotracheal tube in place. 2. CT confirms the presence of a right mandibular abscess with adjacent subcutaneous soft tissue swelling and fluid within the adjacent right side of the face. ACT 112: Negative or not required by law. Electronically signed by: Chuck Quintero M.D. 06/06/2021 1:01 PM Discharge Plan Visit Data Chief Complaint: Cardiac Arrest/CPR Stated Complaint: STEPHIE-ARREST ED Provider: Kishan Palma Discharge Problem: Cardiac arrest due to respiratory disorder, Acute respiratory acidosis, Pulmonary edema, Acute UTI (urinary tract infection), Pleural effusion, bilateral Patient Disposition: Being Evaluated by Hospitalist Forms Stand Alone Forms: My [facility] Prescriptions Prescriptions: No Action furosemide 40 mg tablet 40 mg PO BID RF: 0 acetaminophen 325 mg Tablet 325 mg PO QID PRN (Reason: Headache) RF: 0 clindamycin HCl 300 mg capsule 300 mg PO TID RF: 0 polysaccharide iron complex [Ferrex 150] 150 mg iron capsule 150 mg PO DAILY RF: 0 levothyroxine 75 mcg tablet 75 mcg PO DAILY RF: 0 potassium chloride [Klor-Con M20] 20 mEq Tablet,Er Particles/Crystals See Rx Instructions .ROUTE .COMPLEX RF: 0 amlodipine 10 mg tablet 10 mg PO DAILY RF: 0 amiodarone 100 mg tablet 100 mg PO DAILY RF: 0 metoprolol tartrate 25 mg tablet 25 mg PO BID RF: 0 Xarelto 20 mg tablet 20 mg PO HS RF: 0 Bosulif 400 mg Tablet 400 mg PO DAILY RF: 0 One-A-Day Women's Complete 18 mg-400 mcg- 25 mcg Tablet 1 tab PO DAILY RF: 0 Referrals Referrals: PCP,NO [Primary Care Provider] -
[2021-06-06 11:34] LABS: Base Excess VBG -4.1 mEq/L; Oxygen Saturation VBG 74.6 %; pH VBG 7.06 (7.36-7.41)
[2021-06-06 11:36] LABS: iSTAT Creatinine 2.4 mg/dl (0.6-1.3); iSTAT Hemoglobin 12.6 g/dl (12.0-16.0); iSTAT Ionized Calcium 1.14 mmol/l (1.12-1.32); iSTAT Potassium 3.8 mmol/L (3.3-5.0)
[2021-06-06 11:44] LABS: Hematocrit (blood only) 36.8 % (37-47); Hemoglobin 10.3 g/dL (12.0-16.0); Mean Corpuscular Hemoglobin 23.7 pg (25-34); Mean Corpuscular Volume 84.6 fL (80-100); Mean Platelet Volume 10.5 fL (7.4-10.4); Platelet Count 462 K/uL (130-400); RDW Coefficient of Variation 16.6 % (11.5-14.5); RDW Standard Deviation 51.1 fL (36.4-46.3); Red Blood Count 4.35 M/uL (4.2-5.4); White Blood Count 13.44 K/uL (4.8-10.8)
--- NOTE | 2021-06-06 11:46 | XRay Report ---
XR chest 1V portable CLINICAL HISTORY: SEPSIS. Evaluate cardiopulmonary status. Status post intubation COMPARISON STUDY: No previous studies for comparison. TECHNIQUE: 1 view of the chest FINDINGS: Single frontal view of the chest demonstrates the cardiomediastinal silhouette to be within normal li mits. Endotracheal tube has been placed with its tip 6.0 cm above the lawrence. Compared to previous ex amination, there is evidence for diffuse interstitial edema most characteristic of congestive heart f ailure. No definite focal alveolar opacities or bronchograms are seen. There are again bilateral pleu ral effusions, right greater than left. There is no acute osseous pathology. IMPRESSION: Status post intubation with diffuse interstitial edema most characteristic of congestive heart failure. Bilateral pleural effusions, right greater than left are also present. ACT 112: Negative or not required by law. Electronically signed by: Chuck Quintero M.D. 06/06/2021 11:45 AM
[2021-06-06 11:51] LABS: INR 1.5 (0.9-1.1); Partial Thromboplastin Ratio 1.3; Partial Thromboplastin Time 33.4 Seconds (21.0-31.0); Prothrombin Time 14.6 Seconds (9.0-12.0)
[2021-06-06 11:53] LABS: Albumin Level 3.2 gm/dl (3.4-5.0); BUN Creatinine Ratio 14.2 (10-20); Calcium 8.1 mg/dl (8.5-10.1); Creatinine Clr Calc Pharmacy 25.5 ml/min; Est GFR (Non-African American) 17.2 ml/min; Magnesium 2.5 mg/dl (1.8-2.4); Potassium 3.8 mmol/L (3.5-5.1)
[2021-06-06 11:58] LABS: Appearance Urine Cloudy (Clear); Blood Urine Negative (Negative); Color Urine Dark Yellow; Epithelial Cell Urine Auto >30 /lpf (0-5); Glucose Urine UA Negative (Negative); Ketones Urine Trace (Negative); Leukocyte Esterase Urine 1+ (Negative); Nitrite Urine Negative (Negative); Protein Urine 2+ (Negative); Urobilinogen Urine Negative (Negative)
[2021-06-06 12:03] LABS: Bilirubin Urine 1+ (Negative)
[2021-06-06 12:07] LABS: Basophils # (auto) 0.04 K/uL (0-0.2); Basophils % (auto) 0.3 %; Eosinophils # (auto) 0.01 K/uL (0-0.5); Eosinophils % (auto) 0.1 %; Hypochromasia Present; Immature Granulocytes # (auto) 0.09 K/uL (0.00-0.02); Immature Granulocytes % (auto) 0.7 %; Lymphocytes # (auto) 1.44 K/uL (1.2-3.4); Lymphocytes % (auto) 10.7 %; Monocytes # (auto) 0.61 K/uL (0.11-0.59); Monocytes % (auto) 4.5 %; Neutrophils # (auto) 11.25 K/uL (1.4-6.5); Neutrophils % (auto) 83.7 %; Polychromasia 1+
[2021-06-06 12:08] LABS: Albumin Globulin Ratio 0.8 (0.9-2); Bilirubin,Total 0.6 mg/dl (0.2-1); Total Protein 7.2 gm/dl (6.4-8.2); Troponin I 0.355 ng/ml (0-0.045)
[2021-06-06 12:14] LABS: Mucus Urine Present (None Prsent)
[2021-06-06 12:15] LABS: Bacteria Urine Automated 1+ (Negative); RBC Urine Automated 0-4 /hpf (0-4)
[2021-06-06 12:41] LABS: Adenovirus PCR Not Detected (NotDetected); Bordetella parapertussis PCR Not Detected (NotDetected); Bordetella pertussis PCR Not Detected (NotDetected); Chlamydia pneumoniae PCR Not Detected (NotDetected); Coronavirus 229E PCR Not Detected (NotDetected); Coronavirus CoV-2 (COVID19)PCR Not Detected (NotDetected); Coronavirus HKU1 PCR Not Detected (NotDetected); Coronavirus NL63 PCR Not Detected (NotDetected); Coronavirus OC43PCR Not Detected (NotDetected); Human Metapneumovirus PCR Not Detected (NotDetected); Influenza A PCR Not Detected (NotDetected); Influenza B PCR Not Detected (NotDetected); Mycoplasma pneumoniae PCR Not Detected (NotDetected); Parainfluenza Virus 1 PCR Not Detected (NotDetected); Parainfluenza Virus 2 PCR Not Detected (NotDetected); Parainfluenza Virus 3 PCR Not Detected (NotDetected); Parainfluenza Virus 4 PCR Not Detected (NotDetected); Respiratory Syncytial VirusPCR Not Detected (NotDetected); Rhinovirus/Enterovirus PCR Not Detected (NotDetected)
--- NOTE | 2021-06-06 12:53 | CT Scan Report ---
CT abd pelvis wo con CLINICAL HISTORY: post cardiac arrest . History of abdominal pain COMPARISON STUDY: No previous studies for comparison. CT DOSE: 3062.82 mGy.cm TECHNIQUE: Standard CT of the Abdomen and Pelvis was performed without IV contrast. The patient did not receive oral contrast. A dose lowering technique was utilized adhering to the principles of VICK Ball. FINDINGS: Lung base: There are large bilateral pleural effusions at the lung bases, right slightly greater adriane n left. Compressive atelectasis/collapse is present of both lower lobes. Abdominal cavity: There is no evidence for abdominal mass, adenopathy or ascites. Liver: The liver is homogeneous in attenuation on these limited noncontrast images.. Spleen: The spleen is homogeneous in attenuation on these limited noncontrast images. Pancreas: The pancreas is homogeneous in attenuation on these limited noncontrast images. Gall Bladder: Surgical clips are present from previous cholecystectomy. Adrenal glands: The adrenal glands are normal in size and attenuation on these limited noncontrast im ages. Kidneys: The kidneys are homogeneous in attenuation on these limited noncontrast images. There is no evidence for gross renal mass, calculus or hydronephrosis bilaterally. Bowel: The bowel loops are normally placed within the abdomen and pelvis without evidence for dilatat ion or obstruction. There is no evidence for mass lesion. There are no inflammatory changes present. There is no evidence for free air. There is a normal appendix in the right lower quadrant. Bladder: Marte catheter is present within the bladder. : There is no evidence for pelvic mass or adenopathy. There is evidence of previous hysterectomy. Vasculature: There is no evidence for focal aneurysmal dilatation of the abdominal aorta. Mild athero sclerotic calcification is present. Osseous structures: There is no acute osseous pathology. Mild degenerative changes are seen within th e spine. IMPRESSION: 1. Large bilateral pleural effusions with compressive atelectasis/collapse of both lower lobes, right greater than left. 2. No acute intra-abdominal or pelvic abnormality on these limited noncontrast images. 3. Nonacute findings are delineated above. ACT 112: Negative or not required by law. Electronically signed by: Chuck Quintero M.D. 06/06/2021 12:51 PM
--- NOTE | 2021-06-06 12:54 | CT Scan Report ---
CT head/brain wo con CLINICAL HISTORY: ams . Post cardiac arrest COMPARISON STUDY: No previous studies for comparison. TECHNIQUE: Standard CT of the Brain was performed without IV contrast. A dose lowering technique was utilized adhering to the principles of ALARA. FINDINGS: Extraaxial space: There is no evidence for subdural hematoma. There are no extra-axial fluid collecti ons. Ventricles and cisterns: The ventricles are normal in size and configuration. There is no evidence f or midline shift or mass effect. Parenchyma: There is no subarachnoid or intraparenchymal hemorrhage. There is no evidence for an acu te infarct or cerebral edema. There is homogeneous attenuation of the brain parenchyma. There are no gross mass lesions. Osseous structures: There is no evidence for an acute fracture. The visualized paranasal sinuses are clear. The mastoid air cells are clear bilaterally. Soft tissues: There is no evidence for focal soft tissue swelling. IMPRESSION: No acute intracerebral pathology. ACT 112: Negative or not required by law. Electronically signed by: Chuck Quintero M.D. 06/06/2021 12:53 PM
--- NOTE | 2021-06-06 13:02 | History & Physical Report ---
Date of Service June 06, 2021 Assessment & Plan (1) Acute hypoxemic respiratory failure: Plan: 70 yo female with history of diastolic heart failure is intubated. Patient admitted with possible acute diastolic heart failure. Patient is currently intubated. will be admitted to ICU will check CVP. will have thoracocenthesis to remove pleural effusions that may be causing her SOB and hypoxia (2) Diastolic heart failure: Plan: Patient may be in diastolic heart failure. currently patient is acutely ill, may consider diuresis. However, will maintain pressure support and defer diuretics to intensivisit. recent Echo noted in cardio consult (3) Submandibular abscess: Plan: noted on CT scan. will consult oromaxillary facial surgeon. place on unasyn (4) LORETTA (acute kidney injury): Plan: continue pressure support. If creatinine does not improve may consider nephro consult (5) Lactic acidosis: Plan: Lactic acid is elevated. will continue pressure support. Patient received fluids. currently intubated. will monitor (6) Pulmonary edema: History of Present Illness Chief Complaint: cardiac arrest Primary Care Provider: NO PCP Patient is intubated at time of history. History was obtained by discussion with ER staff and electronic chart review. Was also in the room during portion of the time of interview with daughter and Dr. Gordon. When I returned to the room, family was no longer present. Patient has been more short of breath since December, worsening with exertion and orthopnea. Over past few days, patient became more SOB. Patient today was unale to go up a flight of stairs, as patient became more SOB, 911 was called. It also appeared that when this occurred, patient entered cardiac arrest. She was then intubated and patient was successfully resuscitated. Admission called. Allergies Allergy/AdvReac Type Severity Reaction Status Date / Time amoxicillin Allergy Unknown Unverified 06/06/21 12:18 Home Medications Medication Instructions Recorded Confirmed Type acetaminophen 325 mg tablet 325 mg PO QID PRN 06/06/21 06/06/21 History amiodarone 100 mg tablet 100 mg PO DAILY 06/06/21 06/06/21 History amlodipine 10 mg tablet 10 mg PO DAILY 06/06/21 06/06/21 History bosutinib 400 mg tablet (Bosulif) 400 mg PO DAILY 06/06/21 06/06/21 History clindamycin HCl 300 mg capsule 300 mg PO TID 06/06/21 06/06/21 History furosemide 40 mg tablet 40 mg PO BID 06/06/21 06/06/21 History levothyroxine 75 mcg tablet 75 mcg PO DAILY 06/06/21 06/06/21 History metoprolol tartrate 25 mg tablet 25 mg PO BID 06/06/21 06/06/21 History letxxfoy-gqznehu-nkbu-iron 18 1 tab PO DAILY 06/06/21 06/06/21 History mg-FA 400 mcg-vit K 25 mcg tablet (One-A-Day Women's Complete) polysaccharide iron complex 150 mg 150 mg PO DAILY 06/06/21 06/06/21 History iron capsule (Ferrex) potassium chloride 20 mEq See Rx Instructions .ROUTE .COMPLEX 06/06/21 06/06/21 History tablet,extended release(part/cryst) (Klor-Con M) rivaroxaban 20 mg tablet (Xarelto) 20 mg PO HS 06/06/21 06/06/21 History Past Med/Surg History Medical History Atrial fibrillation History of breast cancer History of ovarian cancer Hypertension Sepsis Surgical History H/O mastectomy Hx of cholecystectomy S/P MICHEL-BSO Social History Smoking Status: Unknown if ever smoked Preferred Language: Mexican Toe Puller Required: No Beliefs That Will Affect Care: None Feels Safe at Home: Yes Assistive Devices: Oxygen - Continuous Review of Systems Review of Systems: Unobtainable due to endotracheal tube Physical Exam Physical Exam: Patient is intubated and sedated. Eyes: PERRL, conjunctivae normal, anicteric sclerae ENMT: external ear and nose normal, oropharynx normal Neck: trachea midline, no thyromegaly Cardiovascular: Rate/Rhythm: regular rate and regular rhythm Gastrointestinal (Abdomen): normal bowel sounds, soft, nontender, no hepatosplenomegaly Skin: cool, rojas mauro Neurologic: PERRL, EOMI, accommodation nl, no face palsy, no dysarthria Psychiatric: sedated Lymphatic: no cervical or axillary lymphadenopathy Results & Data Results & Data ([facility]) Vital Signs (Past 12 Hours) Vital Signs Pulse Pulse Resp BP BP Pulse Ox 06/06/21 12:58 65 24 140/52 L 95 06/06/21 12:37 63 22 136/44 L 96 06/06/21 12:30 22 06/06/21 11:40 60 23 94/47 L 96 06/06/21 11:38 61 22 98 06/06/21 11:30 61 18 100 06/06/21 11:28 100 06/06/21 11:20 66 15 98 06/06/21 11:16 68 24 102/51 L 96 Code Status & VTE Plan VTE Prophylaxis Plan VTE Prophylaxis will be ordered: Yes PG Care Time/CCT Total # of Minutes Spent Total Time Spent with Patient: Total time spent is greater than 50% in coordination of care (as documented) at patient's floor/unit and/or counseling patient: Coding Level of Care Code 45523 Initial Inpt Care Lvl 3 Diagnoses Acute hypoxemic respiratory failure J96.01 Diastolic heart failure I50.30 Submandibular abscess K12.2 LORETTA (acute kidney injury) N17.9 Lactic acidosis E87.2 Pulmonary edema J81.0 Chronicity: acute (1) Pulmonary edema Chronicity: acute Qualified Code(s): J81.0 - Acute pulmonary edema
--- NOTE | 2021-06-06 13:02 | CT Scan Report ---
CT soft tissue neck wo con CLINICAL HISTORY: dental infection . Postcardiac arrest COMPARISON STUDY: No previous studies for comparison. TECHNIQUE: Standard CT of the Neck was performed without IV contrast. A dose lowering technique was utilized adhering to the principles of ALARA. FINDINGS: The study is limited by lack of intravenous contrast. An endotracheal tube is in place. Salivary glands: Parotid and submandibular salivary glands are within normal limits. The thyroid gland is heterogeneous in attenuation bilaterally. Lymph nodes: There are no pathologically enlarged lymph nodes. There is no evidence for soft tissue mass within the neck bilaterally. Airway: The cervical airway cannot be fully evaluated due to the placement of endotracheal tube. The epiglottis and aryepiglottic folds are normal bilaterally. The vocal cords are symmetric bilaterally . Vascular structures: No gross vascular abnormalities are seen. Paranasal sinuses:The imaged paranasal sinuses are clear. Osseous structures: There is a lucency present within the body of the mandible on the right with adj acent soft tissue swelling of the right side of the face. Focal fluid collection is seen adjacent to the body of the mandible. These findings are most characteristic of a mandibular abscess at this site . Posterior molars on the right are absent. IMPRESSION: 1. Limited examination due to lack of intravenous contrast and endotracheal tube in place. 2. CT confirms the presence of a right mandibular abscess with adjacent subcutaneous soft tissue swel ling and fluid within the adjacent right side of the face. ACT 112: Negative or not required by law. Electronically signed by: Chuck Quintero M.D. 06/06/2021 1:01 PM
--- NOTE | 2021-06-06 13:07 | CT Scan Report ---
CT chest diagnostic wo con CLINICAL HISTORY: Shortness of breath. Status post cardiac arrest. COMPARISON STUDY: Portable chest from 06/06/2021 TECHNIQUE: Standard CT of the Chest was performed without IV contrast. A dose lowering technique was utilized adhering to the principles of ALARA. FINDINGS: Airway: The airway is clear. No endobronchial lesion is identified. Lungs and pleura: There are very large bilateral pleural effusions, right greater than left with comp ressive atelectasis/collapse involving the right lower lobe and portions of the right upper lobe gertrude g with the left lower lobe. There is actually no evidence for diffuse interstitial edema as suspected radiographically. The very large pleural effusions accounts for the density seen radiographically. No confluent alveolar opacities are identified. Mediastinum: There is no evidence for pathologic adenopathy on these limited noncontrast images. The heart size is within normal limits. There is coronary artery calcification present. The thoracic aort a is within normal limits. Atherosclerotic calcification is present. There is no evidence for pericar dial effusion. Osseous structures: There is no acute osseous pathology. IMPRESSION: 1. Very large bilateral pleural effusions with compressive atelectasis/collapse of both lower lobes, right greater than left. 2. No evidence for pulmonary edema. 3. Coronary artery calcification. ACT 112: Negative or not required by law. Electronically signed by: Chuck Quintero M.D. 06/06/2021 1:06 PM
[2021-06-06] MEDS ORDERED: STAT IV Infusion **Titration per Protocol STA ×2 (13:10→18:16)
[2021-06-06] MEDS ORDERED: PROPOFOL BOLUS FROM BAG IV PRN (13:10)
[2021-06-06] MEDS: propofoL 1,000 MG/100 ML VIAL IV SCH ×2 (13:16→20:28)
[2021-06-06] MEDS ORDERED: HEPARIN SOD 5,000 UNIT/0.5 ML VIAL SQ SCH (14:00)
[2021-06-06] MEDS ORDERED: fentaNYL citrate 100 MCG/2 ML VIAL IV ONE (15:48)
[2021-06-06] MEDS ORDERED: ROCURONIUM BROMIDE 10 MG/ML 5 ML VIAL IV ONE (15:48)
[2021-06-06] MEDS ORDERED: fentaNYL citrate 100 MCG/2 ML VIAL ONE (16:11)
[2021-06-06] MEDS ORDERED: MIDAZOLAM HCL 5 MG/ML 1 ML VIAL ONE (16:11)
--- NOTE | 2021-06-06 16:13 | Critical Care Consultation ---
Date of Consultation June 06, 2021 Assessment & Plan (1) Cardiac arrest due to respiratory disorder: (2) Pulmonary edema: (3) Pleural effusion, bilateral: (4) Acute hypoxemic respiratory failure: (5) Hypercapnic respiratory failure: (6) Diastolic heart failure: (7) Submandibular abscess: (8) LORETTA (acute kidney injury): (9) Lactic acidosis: (10) Abnormal LFTs: Impression: 70-year-old female with known diastolic heart failure and recent echocardiogram showing preserved ejection fraction with no significant valvular abnormalities admitted with lethargy, hypoxemic hypercarbic respiratory failure, bilateral pleural effusions, and a submandibular abscess as well as acute kidney injury, lactic acidosis, abnormal liver function tests, and elevated troponin. Recommendations: 1. Neurologic: Continue sedation with propofol. We will add fentanyl and Versed as tolerated. Imaging did not demonstrate any acute intracranial abnormality so defer additional work-up. We will keep sedated until respiratory and hemodynamics allow for sedation break. 2. Cardiovascular: Appreciate cardiology consultation. We will try in maintain mean arterial pressure around 65 and avoid significant hypertension. Vasopressors may be required. Continue to trend lactate. Amiodarone per card iology. Hold anticoagulation currently for procedures but will need to restart at some point. Will check CVP once central line placed. Grade 3 fluid retention and grade 3 pericardial and pleural effusions occurred in 1% or less of patients association with bosutinib 3. Pulmonary: Acute hypoxemic and hypercarbic respiratory failure with bilateral pleural effusions. Unclear if this all represents respiratory muscle fatigue due to the fluid overload. We will plan on placing small bore pigtail tube on the right. Pleural fluid will be sent for routine microbiologic as well as cytologic analysis. We will see how she responds to removal of the pleural fluid with regards to her respiratory mechanics and assess for potential ventilator liberation in the next 24 to 48hours. Depending on clinical course, may also consider therapeutic thoracentesis on the left. She is anticoagulated. Risks and benefits were discussed with the patient's daughter at bedside and she agreed to proceed acknowledging the potential increased risk of bleeding. 4. GI: Abnormal liver function tests. 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 N.p.o. for now. GI prophylaxis with PPI 5. Renal: Acute kidney injury. Baseline creatinine reportedly was normal. We will continue to follow with yarsanism of normal hemodynamics. Electrolytes appear stable. Should her creatinine fail to improve would have a low threshold for involving nephrology in her case. The family is not sure whether or not she would want dialysis. 6. ID: Submandibular abscess. Patient been on clindamycin in the outpatient setting. Have asked the hospitalist to reach out to OMFS to determine whether or not drainage is required. We will trend her white blood cell count and clinical response to therapy. Interestingly, her procalcitonin was normal. We will transition antibiotics to Unasyn and dose per creatinine clearance. Urinalysis did show 1+ leuk esterase, 10-30 white cells per high-power field and a few bacteria. Await cultures. Pattern would not be consistent with Lemieres syndrome. 7. Endocrine: Glycemic protocol per ICU pharmacist. Continue Synthroid. 8. Heme-onc: Patient has a history of CML. We will hold her bosutinib currently. May need to reach out to her oncology providers if this medication is to be restarted. DVT prophylaxis with heparin given renal dysfunction Patient is critically ill at this point time with multiorgan system dysfunction and failure. She has significant probability of progressing. Total of 75 minutes critical care time was spent evaluation management stabilization of this patient exclusive of procedures. Family was updated at the bedside. History of Present Illness History of Present Illness Asked by hospitalist to assist in evaluation management this patient admitted with hypoxemic hypercarbic respiratory failure and out of hospital respiratory arrest. History is obtained from discussion with the ER staff as well as review the electronic medical record and interview with the patient's daughter whom she resides with at the bedside. Patient is a 70-year-old female with a history of diastolic heart failure. She recently moved to this area to live closer to family. She was followed previously by [facility]. Please refer to Dr. Gordon's clinical notes for excellent synopsis of her cardiac history. Patient was brought to the emergency room after her daughter called 911. According to the daughter the patient had been increasingly somnolent and lethargic over the last 24 hours. She has been experiencing increasing shortness of breath. When EMS arrived today the patient was in profound respiratory distress with oxygen saturations in the 50% range. They attempted to intubate the patient in the field but this was unsuccessful. She did require 1 round of CPR during this course but responded to atropine and epi. She was brought in the emergency room and at that point in time was intubated. Sedation was initiated with propofol. She had been on clindamycin in the outpatient. She is anticoagulated with Xarelto for atrial fibrillation and had been on amiodarone in the past. Patient has a remote history of breast and ovarian cancer. These were in the 90s and early 1999's. She is had no evidence of recurrence and is not currently on chemotherapy. She does have a history of CML and is on bosutinib. CT scans performed on arrival to the emergency room demonstrated a abscess in the submandibular area but no acute intracranial abnormalities. She reportedly was being treated with clindamycin by her dentist for management of a dental infecti on. No PE was identified on CT angiogram however large bilateral pleural effusions were noted with compressive atelectasis. Initial blood gas did demonstrate severe respiratory acidosis. Allergies Allergy/AdvReac Type Severity Reaction Status Date / Time amoxicillin Allergy Unknown Unverified 06/06/21 12:18 Home Medications Medication Instructions Recorded Confirmed Type acetaminophen 325 mg tablet 325 mg PO QID PRN 06/06/21 06/06/21 History amiodarone 100 mg tablet 100 mg PO DAILY 06/06/21 06/06/21 History amlodipine 10 mg tablet 10 mg PO DAILY 06/06/21 06/06/21 History bosutinib 400 mg tablet (Bosulif) 400 mg PO DAILY 06/06/21 06/06/21 History clindamycin HCl 300 mg capsule 300 mg PO TID 06/06/21 06/06/21 History furosemide 40 mg tablet 40 mg PO BID 06/06/21 06/06/21 History levothyroxine 75 mcg tablet 75 mcg PO DAILY 06/06/21 06/06/21 History metoprolol tartrate 25 mg tablet 25 mg PO BID 06/06/21 06/06/21 History vgwgaxty-akismbs-utqd-iron 18 1 tab PO DAILY 06/06/21 06/06/21 History mg-FA 400 mcg-vit K 25 mcg tablet (One-A-Day Women's Complete) polysaccharide iron complex 150 mg 150 mg PO DAILY 06/06/21 06/06/21 History iron capsule (Ferrex) potassium chloride 20 mEq See Rx Instructions .ROUTE .COMPLEX 06/06/21 06/06/21 History tablet,extended release(part/cryst) (Klor-Con M) rivaroxaban 20 mg tablet (Xarelto) 20 mg PO HS 06/06/21 06/06/21 History Patient History Medical History Atrial fibrillation History of breast cancer History of ovarian cancer Hypertension Sepsis Surgical History H/O mastectomy Hx of cholecystectomy S/P MICHEL-BSO Social History Smoking Status: Never smoker Feels Safe at Home: Yes Review of Systems Review of Systems: Unobtainable due to endotracheal tube Physical Exam Constitutional: Patient is somewhat mauro and ashen. She is sedated on propofol. She is morbidly obese. Intubated Neck: trachea midline, no thyromegaly Respiratory: Intubated. Breath sounds decreased posteriorly. Few crackles present. No wheezing Cardiovascular: RRR, no murmur, no edema Gastrointestinal (Abdomen): normal bowel sounds, soft, nontender, no hepatosplenomegaly Musculoskeletal: Extremities: extremities normal to inspection Skin: Cool to the touch Neurologic: Sedated Lymphatic: no cervical lymphadenopathy Results & Data Results & Data ([facility]) Vital Signs (Past 12 Hours) Vital Signs Pulse Pulse Resp BP BP Pulse Ox 06/06/21 15:45 54 L 18 97/55 L 96 06/06/21 15:00 54 L 18 98/52 L 96 06/06/21 14:40 55 L 22 95/55 L 94 06/06/21 14:30 55 L 22 96/53 L 94 06/06/21 14:21 56 L 22 84 L 06/06/21 14:15 58 L 25 H 118/48 L 90 06/06/21 14:10 59 L 27 H 83 L 06/06/21 14:00 59 L 59 L 32 H 135/51 L 90 06/06/21 13:50 61 29 H 95 06/06/21 13:45 61 28 H 141/70 H 93 06/06/21 13:40 63 29 H 91 06/06/21 13:30 63 27 H 149/56 H 92 06/06/21 13:15 62 24 150/62 H 96 06/06/21 13:02 63 24 146/55 H 95 06/06/21 12:58 65 24 140/52 L 95 06/06/21 12:37 63 22 136/44 L 96 06/06/21 12:30 22 06/06/21 11:40 60 23 94/47 L 96 06/06/21 11:38 61 22 98 06/06/21 11:30 61 18 100 06/06/21 11:28 100 06/06/21 11:20 66 15 98 06/06/21 11:16 68 24 102/51 L 96 Critical Care Results & Data Vital Signs (Past 12 Hours) Vital Signs Pulse Pulse Resp BP BP Pulse Ox 06/06/21 15:45 54 L 18 97/55 L 96 06/06/21 15:00 54 L 18 98/52 L 96 06/06/21 14:40 55 L 22 95/55 L 94 06/06/21 14:30 55 L 22 96/53 L 94 06/06/21 14:21 56 L 22 84 L 06/06/21 14:15 58 L 25 H 118/48 L 90 06/06/21 14:10 59 L 27 H 83 L 06/06/21 14:00 59 L 59 L 32 H 135/51 L 90 06/06/21 13:50 61 29 H 95 06/06/21 13:45 61 28 H 141/70 H 93 06/06/21 13:40 63 29 H 91 06/06/21 13:30 63 27 H 149/56 H 92 06/06/21 13:15 62 24 150/62 H 96 06/06/21 13:02 63 24 146/55 H 95 06/06/21 12:58 65 24 140/52 L 95 06/06/21 12:37 63 22 136/44 L 96 06/06/21 12:30 22 06/06/21 11:40 60 23 94/47 L 96 06/06/21 11:38 61 22 98 06/06/21 11:30 61 18 100 06/06/21 11:28 100 06/06/21 11:20 66 15 98 06/06/21 11:16 68 24 102/51 L 96 Lab & Micro Results (Past 24 Hours) RBC 4.35 M/uL (4.2-5.4) 06/06/21 WBC 13.44 K/uL (4.8-10.8) H 06/06/21 Hgb 10.3 g/dL (12.0-16.0) L 06/06/21 Hct 36.8 % (37-47) L 06/06/21 MCV 84.6 fL (80-100) 06/06/21 MCH 23.7 pg (25-34) L 06/06/21 MCHC 28.0 g/dL (32-36) L 06/06/21 RDW Standard Deviation 51.1 fL (36.4-46.3) H 06/06/21 RDW Coefficient of Variation 16.6 % (11.5-14.5) H 06/06/21 Plt Count 462 K/uL (130-400) H 06/06/21 MPV 10.5 fL (7.4-10.4) H 06/06/21 Neutrophils (%) (Auto) 83.7 % 06/06/21 Lymphocytes (%) (Auto) 10.7 % 06/06/21 Monocytes # (Auto) 0.61 K/uL (0.11-0.59) H 06/06/21 Eosinophils # (Auto) 0.01 K/uL (0-0.5) 06/06/21 Immature Granulocyte % (Auto) 0.7 % 06/06/21 Neutrophils # (Auto) 11.25 K/uL (1.4-6.5) H 06/06/21 Lymphocytes # (Auto) 1.44 K/uL (1.2-3.4) 06/06/21 Monocytes # (Auto) 0.61 K/uL (0.11-0.59) H 06/06/21 Eosinophils # (Auto) 0.01 K/uL (0-0.5) 06/06/21 Basophils # (Auto) 0.04 K/uL (0-0.2) 06/06/21 Immature Granulocyte # (Auto) 0.09 K/uL (0.00-0.02) H 06/06/21 Polychromasia 1+ 06/06/21 Hypochromasia Present 06/06/21 Na 138 mmol/L (136-145) 06/06/21 K 3.8 mmol/L (3.5-5.1) 06/06/21 Cl 101 mmol/L (98-107) 06/06/21 CO2 26 mmol/L (21-32) 06/06/21 Anion Gap 11.0 (3-11) 06/06/21 BUN 38 mg/dl (7-18) H 06/06/21 Creatinine 2.69 mg/dl (0.6-1.2) H 06/06/21 Estimated GFR ( Amer) 20.0 ml/min 06/06/21 Estimated GFR (Non-Af Amer) 17.2 ml/min 06/06/21 BUN/Creatinine Ratio 14.2 (10-20) 06/06/21 Glu 214 mg/dl (70-99) H 06/06/21 Ca 8.1 mg/dl (8.5-10.1) L 06/06/21 Total Bilirubin 0.6 mg/dl (0.2-1) 06/06/21 AST 129 U/L (15-37) H 06/06/21 ALT 145 (12-78) H 06/06/21 Alkaline Phosphatase 172 U/L (45-117) H 06/06/21 TP 7.2 gm/dl (6.4-8.2) 06/06/21 Albumin 3.2 gm/dl (3.4-5.0) L 06/06/21 Globulin 4.0 gm/dl (2.5-4.0) 06/06/21 Albumin/Globulin Ratio 0.8 (0.9-2) L 06/06/21 Mg 2.5 mg/dl (1.8-2.4) H 06/06/21 11:20 06/06/21 Calcium Level 8.1 mg/dl (8.5-10.1) L 06/06/21 11:20 06/06/21 Prothromb Time International Ratio 1.5 (0.9-1.1) H 06/06/21 11:20 06/06/21 Venous Blood pH 7.06 (7.36-7.41) L 06/06/21 11:20 06/06/21 Venous Blood Partial Pressure CO2 102 mmHg (38-50) H 06/06/21 11:20 06/06/21 Venous Blood Partial Pressure O2 58 mmHg 06/06/21 11:20 06/06/21 Venous Blood HCO3 28 mmol/L 06/06/21 11:20 06/06/21 Venous Blood Base Excess -4.1 mEq/L 06/06/21 11:20 06/06/21 Venous Blood Oxygen Saturation 74.6 % 06/06/21 11:20 06/06/21 Blood Gas Barometric Pressure 722.4 mm/Hg 06/06/21 11:20 06/06/21 Blood Gas Barometric Pressure 722.4 mm/Hg 06/06/21 11:20 06/06/21 Diagnostic Findings (Past 24 Hours) Chest X-Ray 06/06/21 11:02 XR chest 1V portable CLINICAL HISTORY: SEPSIS. Evaluate cardiopulmonary status. Status post intubation COMPARISON STUDY: No previous studies for comparison. TECHNIQUE: 1 view of the chest FINDINGS: Single frontal view of the chest demonstrates the cardiomediastinal silhouette to be within normal limits. Endotracheal tube has been placed with its tip 6.0 cm above the lawrence. Compared to previous examination, there is evidence for diffuse interstitial edema most characteristic of congestive heart failure. No definite focal alveolar opacities or bronchograms are seen. There are again bilateral pleural effusions, right greater than left. There is no acute osseous pathology. IMPRESSION: Status post intubation with diffuse interstitial edema most characteristic of congestive heart failure. Bilateral pleural effusions, right greater than left are also present. ACT 112: Negative or not required by law. Electronically signed by: Chuck Quintero M.D. 06/06/2021 11:[address] 06/06/21 11:24 CT head/brain wo con CLINICAL HISTORY: ams . Post cardiac arrest COMPARISON STUDY: No previous studies for comparison. TECHNIQUE: Standard CT of the Brain was performed without IV contrast. A dose lowering technique was utilized adhering to the principles of ALARA. FINDINGS: Extraaxial space: There is no evidence for subdural hematoma. There are no extra-axial fluid collections. Ventricles and cisterns: The ventricles are normal in size and configuration. There is no evidence for midline shift or mass effect. Parenchyma: There is no subarachnoid or intraparenchymal hemorrhage. There is no evidence for an acute infarct or cerebral edema. There is homogeneous attenuation of the brain parenchyma. There are no gross mass lesions. Osseous structures: There is no evidence for an acute fracture. The visualized paranasal sinuses are clear. The mastoid air cells are clear bilaterally. Soft tissues: There is no evidence for focal soft tissue swelling. IMPRESSION: No acute intracerebral pathology. ACT 112: Negative or not required by law. Electronically signed by: Chuck Quintero M.D. 06/06/2021 12:53 PM Abdomen/Pelvis CT 06/06/21 11:31 CT abd pelvis wo con CLINICAL HISTORY: post cardiac arrest . History of abdominal pain COMPARISON STUDY: No previous studies for comparison. CT DOSE: 3062.82 mGy.cm TECHNIQUE: Standard CT of the Abdomen and Pelvis was performed without IV contrast. The patient did not receive oral contrast. A dose lowering technique was utilized adhering to the principles of ALARA. FINDINGS: Lung base: There are large bilateral pleural effusions at the lung bases, right slightly greater than left. Compressive atelectasis/collapse is present of both lower lobes. Abdominal cavity: There is no evidence for abdominal mass, adenopathy or asc ites. Liver: The liver is homogeneous in attenuation on these limited noncontrast images.. Spleen: The spleen is homogeneous in attenuation on these limited noncontrast images. Pancreas: The pancreas is homogeneous in attenuation on these limited noncontrast images. Gall Bladder: Surgical clips are present from previous cholecystectomy. Adrenal glands: The adrenal glands are normal in size and attenuation on these limited noncontrast images. Kidneys: The kidneys are homogeneous in attenuation on these limited noncontrast images. There is no evidence for gross renal mass, calculus or hydronephrosis bilaterally. Bowel: The bowel loops are normally placed within the abdomen and pelvis without evidence for dilatation or obstruction. There is no evidence for mass lesion. There are no inflammatory changes present. There is no evidence for free air. There is a normal appendix in the right lower quadrant. Bladder: Marte catheter is present within the bladder. : There is no evidence for pelvic mass or adenopathy. There is evidence of previous hysterectomy. Vasculature: There is no evidence for focal aneurysmal dilatation of the a bdominal aorta. Mild atherosclerotic calcification is present. Osseous structures: There is no acute osseous pathology. Mild degenerative changes are seen within the spine. IMPRESSION: 1. Large bilateral pleural effusions with compressive atelectasis/collapse of both lower lobes, right greater than left. 2. No acute intra-abdominal or pelvic abnormality on these limited noncontrast images. 3. Nonacute findings are delineated above. ACT 112: Negative or not required by law. Electronically signed by: Chuck Quintero M.D. 06/06/2021 12:[address] 06/06/21 11:31 CT chest diagnostic wo con CLINICAL HISTORY: Shortness of breath. Status post cardiac arrest. COMPARISON STUDY: Portable chest from 06/06/2021 TECHNIQUE: Standard CT of the Chest was performed without IV contrast. A dose lowering technique was utilized adhering to the principles of ALARA. FINDINGS: Airway: The airway is clear. No endobronchial lesion is identified. Lungs and pleura: There are very large bilateral pleural effusions, right greater than left with compressive atelectasis/collapse involving the right lower lobe and portions of the right upper lobe along with the left lower lobe. There is actually no evidence for diffuse interstitial edema as suspected radiographically. The very large pleural effusions accounts for the density seen radiographically. No confluent alveolar opacities are identified. Mediastinum: There is no evidence for pathologic adenopathy on these limited noncontrast images. The heart size is within normal limits. There is coronary artery calcification present. The thoracic aorta is within normal limits. Atherosclerotic calcification is present. There is no evidence for pericardial effusion. Osseous structures: There is no acute osseous pathology. IMPRESSION: 1. Very large bilateral pleural effusions with compressive atelectasis/collapse of both lower lobes, right greater than left. 2. No evidence for pulmonary edema. 3. Coronary artery calcification. ACT 112: Negative or not required by law. Electronically signed by: Chuck Quintero M.D. 06/06/2021 1:[address] 06/06/21 11:31 CT soft tissue neck wo con CLINICAL HISTORY: dental infection . Postcardiac arrest COMPARISON STUDY: No previous studies for comparison. TECHNIQUE: Standard CT of the Neck was performed without IV contrast. A dose lowering technique was utilized adhering to the principles of ALARA. FINDINGS: The study is limited by lack of intravenous contrast. An endotracheal tube is in place. Salivary glands: Parotid and submandibular salivary glands are within normal limits. The thyroid gland is heterogeneous in attenuation bilaterally. Lymph nodes: There are no pathologically enlarged lymph nodes. There is no evidence for soft tissue mass within the neck bilaterally. Airway: The cervical airway cannot be fully evaluated due to the placement of endotracheal tube. The epiglottis and aryepiglottic folds are normal bilaterally. The vocal cords are symmetric bilaterally. Vascular structures: No gross vascular abnormalities are seen. Paranasal sinuses:The imaged paranasal sinuses are clear. Osseous structures: There is a lucency present within the body of the mandible on the right with adjacent soft tissue swelling of the right side of the face. Focal fluid collection is seen adjacent to the body of the mandible. These findings are most characteristic of a mandibular abscess at this site. Posterior molars on the right are absent. IMPRESSION: 1. Limited examination due to lack of intravenous contrast and endotracheal tube in place. 2. CT confirms the presence of a right mandibular abscess with adjacent subcutaneous soft tissue swelling and fluid within the adjacent right side of the face. ACT 112: Negative or not required by law. Electronically signed by: Chuck Quintero M.D. 06/06/2021 1:01 PM I & O Totals 24 Hours 06/05/21 06/06/21 06/07/21 06:59 06:59 06:59 Intake Total 3.683 / 3.683 Output Total 100 / 100 Balance 3.683 / 1953.683 Cumulative 06/06/21 10:39 thru 06/06/21 15:44 Intake Total 2052.683 Output Total 100 Balance 3.683 RT Ventilator Mngmt (Last Documented) Ventilator Ordered Settings Ventilator Support Mode Assist Control 06/06/21 14:30 Respiratory Rate 18 06/06/21 15:45 Ventilator Tidal Volume 400 06/06/21 14:30 Setting Minute Ventilation 12.1 06/06/21 14:30 Ventilator Positive Pressure 8 06/06/21 14:30 Support Setting Fraction of Inspired Oxygen 80 06/06/21 14:30 Machine Comment FiO2 increased to maintain SPO2 > 06/06/21 14:30 88% Ventilator - PT Measurements Respiratory Rate 18 Exhaled Tidal Volume 406 Minute Ventilation 12.1 Peak Inspiratory Airway 33 Pressure Respiratory Cycle Inspiratory: 1:2.4 Expiratory Ratio Inspiratory Phase Time 0.8 End-Tidal CO2 44 Coding Level of Care Code Critical Care ea addt'l 30 min Diagnoses Cardiac arrest due to respiratory disorder J98.9; I46.8 Pulmonary edema J81.0 Chronicity: acute Pleural effusion, bilateral J90 Acute hypoxemic respiratory failure J96.01 Hypercapnic respiratory failure J96.92 Diastolic heart failure I50.30 Submandibular abscess K12.2 LORETTA (acute kidney injury) N17.9 Lactic acidosis E87.2 Abnormal LFTs R79.89 Time Spent (min) 79 Comment 92131 and 48972 (1) Pulmonary edema Chronicity: acute Qualified Code(s): J81.0 - Acute pulmonary edema
[2021-06-06] MEDS ORDERED: fentaNYL citrate 100 MCG/2 ML VIAL IV STA (18:14)
[2021-06-06] MEDS ORDERED: MIDAZOLAM HCL 5 MG/ML 1 ML VIAL IV STA (18:15)
[2021-06-06] MEDS ORDERED: MIDAZOLAM HCL 1 MG/ML 2ML VIAL IV PRN (18:16)
[2021-06-06] MEDS ORDERED: bisacodyL 10 MG SUPP PR PRN (18:16)
[2021-06-06] MEDS ORDERED: ICU PROTOCOL FOR HYPERGLYCEMIA PRN (18:16)
--- NOTE | 2021-06-06 18:22 | Procedure Note ---
Procedure Note Date of Service June 06, 2021 Note ARTERIAL LINE PROCEDURE NOTE: Procedure: Arterial Line Placement Provider: Lefty Norman MD Indication: Monitoring on Pressors Anesthesia: None Verbal consent was obtained from the patient's daughter in the emergency room. The patient is intubated sedated and unable to provide consent. Risks and benefits were discussed A time-out was completed verifying correct patient, procedure, site, positioning, and implant(s) or special equipment if applicable. Allens test was performed to ensure adequate perfusion. Patients rightwrist was prepped and draped in the usual sterile fashion. A 20g Arrow arterial line was introduced into the right radialartery. Catheter was threaded, and the needle was removed with appropriate blood return. Good waveform was observed. The patient tolerated the procedure well. Blood Loss: Minimal Complications: None Coding CPT Codes Tubes, Drains, and Vasc Access - Tubes, Drains, and Vasc Access: [id number] Insertion Catheter, Artery ([id number]) [facility] [place] Procedure Codes (Charges) Tubes, Drains, and Vasc Access Procedure 1: Tubes, Drains, and Vasc Access: [id number] Insertion Catheter, Artery
--- NOTE | 2021-06-06 18:25 | Procedure Note ---
Procedure Note Date of Service June 06, 2021 Note CENTRAL LINE PROCEDURE NOTE: Procedure: Central Line Placement Provider: Lefty Norman MD Indication: Central Drug Administration, Poor Venous Access, Multiple Lab Draws Necessary, etc. Anesthesia: 5 mL 1% lidocaine without epinephrine Site: Left subclavian Consent was obtained from the patient's daughter in the emergency room. The patient was intubated sedated and unable to provide verbal consent were written consent. Risks and benefits were discussed with the patient's daughter to include increased risk of bleeding given her anticoagulation A time-out was completed verifying correct patient, procedure, site, positi oning, and implants(s) or special equipment if applicable. Patients left clavicular area was cleansed and draped in the typical sterile fashion using Chloraprep. Landmarks were identified. The superficial tissue was anesthetized using 5mL of 1% lidocaine without epinephrine. After adequate anesthetization was achieved, the left subclavian vein was cannulated under direct ultrasound guidance using an introducer needle on a syringe. Good venous blood return was maintained prior to removal of syringe from introducer needle. Using Seldinger Technique, a guide wire was advanced through the introducer needle without resistance. The introducer needle was removed. small incision was made in penetrating fashion at the guide wire insertion site utilizing an 11 blade scalpel. The dilator was advanced to the vessel without resistance. The dilator was exchanged for the triple lumen catheter which was advanced into the vessel without resistance. The guide wire was removed intact from the catheter without issue. Claves were placed on each catheter tip with confirmation of good blood flow from each lumen. Each port was easily flushed with sterile saline. The catheter was placed at the hub and sutured in place. BioPatch was applied to the catheter and a sterile Tegaderm dressing was applied over the catheter with careful attention to sterility. Patient tolerated procedure well. No immediate complications were met. Post procedure x-ray was ordered and is currently pending Coding CPT Codes Tubes, Drains, and Vasc Access - Tubes, Drains, and Vasc Access: [id number] Place catheter in vein superior or inferior vena cava ([id number]) [facility] [place] Procedure Codes (Charges) Tubes, Drains, and Vasc Access Procedure 1: Tubes, Drains, and Vasc Access: [id number] Place catheter in vein superior or inferior vena cava
--- NOTE | 2021-06-06 18:30 | Procedure Note ---
Procedure Note Date of Service June 06, 2021 Note Procedure: Diagnostic therapeutic ultrasound-guided placement of 14 [place] pigtail skater catheter in the right pleural space Apiculture Teacher: Dr. Lefty Norman Indication: Pleural effusion Consent: Discussed with patient daughter in the emergency room. Patient is intubated and unable to provide consent Anesthesia: 8 mL's 1% lidocaine without epinephrine local. Procedure: Consent was verified and timeout performed. Appropriate imaging studies were reviewed prior to the procedure. Patient was intubated and sedated in the ICU. Patient was placed in a right-sided up lateral decubitus position and limited thoracic ultrasound was performed of the right chest. A large simple appearing effusion with compressive atelectasis was identified. Site appropriate for tube thoracostomy placement was selected. The skin was prepped and draped in normal sterile fashion. Lidocaine was used for local analgesia. A skin florina was made with the scalpel. An 18-gauge needle was then advanced through the subcutaneous tissues and over the rib into the pleural space. Fluid was aspirated via the needle. The fluid was serous in nature. A wire was passed through the needle into the pleural space. The needle was withdrawn leaving the wire intact. An 8 [place] African dilator was used to dilate the tract. A 14 [place] skater catheter with the pigtail locking mechanism was then straightened and advanced over the wire into the pleural space. The internal stiffening catheter was removed. The locking mechanism was secured. The tube was attached to suction and a total of 200 mL of fluid was removed. The tube was secured with then 1-0 silk suture, Vaseline impregnated gauze, and a skater securing system. Chest tube will be placed to 20 cm of wall suction. Fluid was sent for microbiologic and cytologic analysis. Post procedure chest x-ray is currently pending. The patient tolerated the procedure well without obvious complication Estimated blood loss: Less than 10 cc Coding CPT Codes Pulmonary/Thoracic - Pulmonary and Thoracic: 80050 Tube thoracostomy ([id number]) Pulmonary/Thoracic - Pulmonary and Thoracic: 36490 US, Chest, real time with imaging documentation ([id number]) [facility] [place] Procedure Codes (Charges) Pulmonary/Thoracic Procedure 1: Pulmonary and Thoracic: 75913 Tube thoracostomy Procedure 2: Pulmonary and Thoracic: 85633 US, Chest, real time with imaging documentation
--- NOTE | 2021-06-06 18:39 | Oral/Maxillofacial Consult ---
Date of Consultation June 06, 2021 Assessment & Plan (1) Right facial swelling: (2) History of recent dental procedure: History of Present Illness Reason for Consultation: I reviewed the chart and the CT scan. Looks to be an infection posterior right mandible with associated radiolucent defect possibly an infected residual cyst. I will see Mrs. Loera Tuesday morning. Attending Physician: Fabrizio Shabazz History of Present Illness Oral Maxillofacial Surgery Exam Present Complaint: I was asked to evaluate a swelling in the submandibular area right side associated with a radiolucent area on the right posterior mandible. I discussed the history with Mrs. Loera`s daughter over the phone. Violetta had a tooth extracted (lower right molar) in the beginning of May. Sjhe was placed on Clindamycin by the dentist at [facility]. According to her daughter Violetta was not complaining of pain and maybe was slightly swollen left side. Oral Exam: Finding--I was able to palpate the floor of the mouth, submandibular, tongue, palate, cheek and anterior/posterior neck: There are no signs of active infection, no pockets to suggested an abscess or any drainable pus. Intraoral --there is a well healing # 30 extraction site with healthy gingival tissue, to drainage upon palpation. I reviewed te CT scan and I am not able to corollate what is seen on the CT and clinically---There is no palpable swelling, fluid collection or edema as sugg ested on the CT. The neck is soft w/o ant evidence of any infection process going on. Imaging: CT soft tissue neck wo con CLINICAL HISTORY: dental infection . Postcardiac arrest COMPARISON STUDY: No previous studies for comparison. TECHNIQUE: Standard CT of the Neck was performed without IV contrast. A dose lowering technique was utilized adhering to the principles of ALARA. FINDINGS: The study is limited by lack of intravenous contrast. An endotracheal tube is in place. Salivary glands: Parotid and submandibular salivary glands are within normal limits. The thyroid gland is heterogeneous in attenuation bilaterally. Lymph nodes: There are no pathologically enlarged lymph nodes. There is no evidence for soft tissue mass within the neck bilaterally. Airway: The cervical airway cannot be fully evaluated due to the placement of endotracheal tube. The epiglottis and aryepiglottic folds are normal bilaterally. The vocal cords are symmetric bilaterally. Vascular structures: No gross vascular abnormalities are seen. Paranasal sinuses:The imaged paranasal sinuses are clear. Osseous structures: There is a lucency present within the body of the mandible on the right with adjacent soft tissue swelling of the right side of the face. Focal fluid collection is seen adjacent to the body of the mandible. These findings are most characteristic of a mandibular abscess at this site. Posterior molars on the right are absent. IMPRESSION: 1. Limited examination due to lack of intravenous contrast and endotracheal tube in place. 2. CT confirms the presence of a right mandibular abscess with adjacent subcutaneous soft tissue swelling and fluid within the adjacent right side of the face. Soft tissue: floor of the mouth, tongue, hard/soft palate, posterior pharyngeal area all with in normal limits, no pathology or abnormal findings noted. Oral Care: Overall oral care is good Occlusion: Class I occlusion with missing lower right molars TMJ exam: not able to evaluate Periodontal exam: Healthy gingival tissue without evidence of periodontal pathology. Head/Neck exam: Neck is short and thick, edema noted , no swelling to suggest infection. Central lines in place right neck No hematoma or masses noted Treatment Plan: Patient is on antibiotics which I feel is the appropriate treatment at this time. No surgical treatment is required at this time. I informed the ICU staff and Mrs. Loera`s daughter of my findings If the neck swelling should re develop place consult me again. Other ortega with the antibiotic this should take care of the recent swelling secondary to the extraction of the # 30 molar. Allergies Allergy/AdvReac Type Severity Reaction Status Date / Time amoxicillin Allergy Unknown Unverified 06/06/21 12:18 Home Medications Medication Instructions Recorded Confirmed Type acetaminophen 325 mg tablet 325 mg PO QID PRN 06/06/21 06/06/21 History amiodarone 100 mg tablet 100 mg PO DAILY 06/06/21 06/06/21 History amlodipine 10 mg tablet 10 mg PO DAILY 06/06/21 06/06/21 History bosutinib 400 mg tablet (Bosulif) 400 mg PO DAILY 06/06/21 06/06/21 History clindamycin HCl 300 mg capsule 300 mg PO TID 06/06/21 06/06/21 History furosemide 40 mg tablet 40 mg PO BID 06/06/21 06/06/21 History levothyroxine 75 mcg tablet 75 mcg PO DAILY 06/06/21 06/06/21 History metoprolol tartrate 25 mg tablet 25 mg PO BID 06/06/21 06/06/21 History uuibagyu-obrvopp-aohv-iron 18 1 tab PO DAILY 06/06/21 06/06/21 History mg-FA 400 mcg-vit K 25 mcg tablet (One-A-Day Women's Complete) polysaccharide iron complex 150 mg 150 mg PO DAILY 06/06/21 06/06/21 History iron capsule (Ferrex) potassium chloride 20 mEq See Rx Instructions .ROUTE .COMPLEX 06/06/21 06/06/21 History tablet,extended release(part/cryst) (Klor-Con M) rivaroxaban 20 mg tablet (Xarelto) 20 mg PO HS 06/06/21 06/06/21 History Patient History Medical History Atrial fibrillation History of breast cancer History of ovarian cancer Hypertension Sepsis Surgical History H/O mastectomy Hx of cholecystectomy S/P MICHEL-BSO Social History Smoking Status: Unknown if ever smoked Preferred Language: Irish Notary Public Required: No Beliefs That Will Affect Care: None Feels Safe at Home: Yes Assistive Devices: Oxygen - Continuous Results & Data ([facility]) Vital Signs (Past 12 Hours) Vital Signs Temp Pulse Pulse Resp BP BP Pulse Ox 06/06/21 16:58 37 C 53 L 18 129/60 96 06/06/21 15:45 54 L 18 97/55 L 96 06/06/21 15:00 54 L 18 98/52 L 96 06/06/21 14:40 55 L 22 95/55 L 94 06/06/21 14:30 55 L 22 96/53 L 94 06/06/21 14:21 56 L 22 84 L 06/06/21 14:15 58 L 25 H 118/48 L 90 06/06/21 14:10 59 L 27 H 83 L 06/06/21 14:00 59 L 59 L 32 H 135/51 L 90 06/06/21 13:50 61 29 H 95 06/06/21 13:45 61 28 H 141/70 H 93 06/06/21 13:40 63 29 H 91 06/06/21 13:30 63 27 H 149/56 H 92 06/06/21 13:15 62 24 150/62 H 96 06/06/21 13:02 63 24 146/55 H 95 06/06/21 12:58 65 24 140/52 L 95 06/06/21 12:37 63 22 136/44 L 96 06/06/21 12:30 22 06/06/21 11:40 60 23 94/47 L 96 06/06/21 11:38 61 22 98 06/06/21 11:30 61 18 100 06/06/21 11:28 100 06/06/21 11:20 66 15 98 06/06/21 11:16 68 24 102/51 L 96 PG Care Time/CCT Total # of Minutes Spent Total Time Spent with Patient: Total time spent is greater than 50% in coordination of care (as documented) at patient's floor/unit and/or counseling patient: Coding Level of Care Code 04445 Initial Inpt Care Lvl 3 Diagnoses Right facial swelling R22.0 History of recent dental procedure Z98.890
--- NOTE | 2021-06-06 18:40 | XRay Report ---
XR chest 1V portable at 6:28 PM CLINICAL HISTORY: Line/Chest Tube/OG Tube Placement. COMPARISON STUDY: Portable chest on 06/06/2021 at 11:12 AM TECHNIQUE: 1 view of the chest FINDINGS: Single frontal view of the chest demonstrates the heart size to be mildly enlarged. Endotracheal tube is unchanged. Left subclavian catheter has been placed with its tip in the distal SVC. There is no e vidence of pneumothorax. OG tube has been placed with its tip extending below the edge of the film in to the stomach. There is also been interval placement of a pigtail chest tube with right lung base wi th resolution of right pleural effusion. There is no evidence for pneumothorax. There is no evidence for small left pleural effusion and left basilar atelectasis. There has been in terval improvement of pulmonary edema with only mild central vascular congestion remaining present. T here is no acute osseous pathology. IMPRESSION: 1. Tubes and catheters as described. 2. Right-sided pigtail catheter chest tube with resolution of right pleural effusion and no evidence for pneumothorax. 3. Interval improvement of pulmonary edema with only mild central vascular congestion remaining prese nt. 4. There is again left basilar atelectasis and persistent small left pleural effusion. ACT 112: Negative or not required by law. Electronically signed by: Chuck Quintero M.D. 06/06/2021 6:39 PM
[2021-06-06 18:43] LABS: Glucose Pleural Fluid 130 mg/dl
[2021-06-06 18:49] LABS: LDH Pleural Fluid 109 U/L; Total Protein Pleural Fluid 3.6 g/dl
[2021-06-06 19:07] LABS: Appearance Pleural Fluid CLOUDY; Basophils, Fluid 0 %; Color Pleural Fluid AMBER; Eosinophils, Fluid 0 %; Lymphocytes, Fluid 85 %; Mono,Macrophage,Mesothelial 12 %; Neutrophils, Fluid 3 %; RBC Pleural Fluid (A) 10000 /uL; Source Pleural Fluid RIGHT LUNG; WBC Pleural Fluid (A) 1063 /uL
[2021-06-06] MEDS: NOREPINEPHRINE/D5W 8 MG/508 ML BAG IV SCH (20:19)
[2021-06-06] MEDS: fentaNYL DRIP 1,250 MCG/250 ML BAG IV SCH (20:28)
[2021-06-06] MEDS: metroNIDAZOLE 500 MG/100 ML BAG IV SCH (20:28)
[2021-06-06] MEDS: METOPROLOL TARTRATE 25 MG TAB PO SCH (20:29)
[2021-06-06] MEDS: FAMOTIDINE 20 MG TAB PO SCH (20:29)
[2021-06-06] MEDS: SENNA 8.6 MG TAB PO SCH (20:30)
[2021-06-06] MEDS ORDERED: RIVAROXABAN 20 MG TAB PO SCH (21:00)
[2021-06-06] MEDS ORDERED: RIVAROXABAN 15 MG TAB PO SCH (21:00)
[2021-06-07] MEDS: propofoL 1,000 MG/100 ML VIAL IV SCH ×10 (00:15→20:27)
[2021-06-07 05:36] LABS: iSTAT Arterial Blood Gas HCO3 26 meg/L (19-24); iSTAT Arterial Blood Gas pCO2 34 mmHg (35-46); iSTAT Arterial Blood Gas pO2 67 mmHg (80-95); iSTAT Carbon Dioxide 27 mmol/L (24-31); iSTAT FiO2 30 %; iSTAT Site Art Line
[2021-06-07 05:38] LABS: INR 1.3 (0.9-1.1)
[2021-06-07 05:54] LABS: Albumin Level 2.5 gm/dl (3.4-5.0); BUN Creatinine Ratio 19.8 (10-20); Bilirubin Direct 0.2 mg/dl (0-0.2); Calcium 7.5 mg/dl (8.5-10.1); Creatinine Clr Calc Pharmacy 34.3 ml/min; Est GFR (African American) 28.6 ml/min; Est GFR (Non-African American) 24.7 ml/min; Potassium 3.5 mmol/L (3.5-5.1)
[2021-06-07 06:04] LABS: Bilirubin,Total 0.5 mg/dl (0.2-1); Phosphorus 2.2 mg/dl (2.5-4.9); Total Protein 5.5 gm/dl (6.4-8.2); Troponin I 0.796 ng/ml (0-0.045)
[2021-06-07 06:29] LABS: Basophils # (auto) 0.03 K/uL (0-0.2); Basophils % (auto) 0.4 %; Eosinophils # (auto) 0.02 K/uL (0-0.5); Eosinophils % (auto) 0.3 %; Hematocrit (blood only) 30.1 % (37-47); Immature Granulocytes # (auto) 0.01 K/uL (0.00-0.02); Immature Granulocytes % (auto) 0.1 %; Lymphocytes # (auto) 1.13 K/uL (1.2-3.4); Lymphocytes % (auto) 14.3 %; Mean Corpuscular Hgb Conc 29.9 g/dL (32-36); Mean Platelet Volume 10.2 fL (7.4-10.4); Monocytes # (auto) 0.91 K/uL (0.11-0.59); Monocytes % (auto) 11.5 %; Neutrophils # (auto) 5.82 K/uL (1.4-6.5); Neutrophils % (auto) 73.4 %; Platelet Count 268 K/uL (130-400); RDW Coefficient of Variation 16.5 % (11.5-14.5); RDW Standard Deviation 45.9 fL (36.4-46.3); Red Blood Count 3.91 M/uL (4.2-5.4); White Blood Count 7.92 K/uL (4.8-10.8)
--- NOTE | 2021-06-07 06:56 | Procedure Note ---
Procedure Note Date of Service June 07, 2021 Note Procedure: Emergent Flexible Therapeutic Bronchoscopy for confirmation of ET Tube placement Attending/It Software Developer: Dr. Norman, Justo Scott PA-C Anesthetic/Sedation: Propofol, Fentanyl drips Indication: Concerns for self extubation and location of ET Tube Emergent consent implied in the setting of possible dislodgement of airway via self-extubation with poor saturations. In short, I was called emergently to the bedside as there was concern that the patient had self extubated despite restraints and sedation. Upon my arrival at bedside, the patient saturations were in the 60s. Respiratory therapy is currently at the head of the bed and attempting to reinsert tube blindly. [place] scope with bronchoscopy scope was present at bedside. Patient had received bolus of sedation. Using glide scope #3 blade, I was able to visualize ET tube which appeared to be in appropriate position. For the sake of completeness, pediatric bronchoscope was attached to scope to assess ET tube placement. A time-out was completed verifying correct patient, procedure, site, positioning, and implant(s) or special equipment if applicable. Findings: After appropriate sedation, a pediatric bronchoscope was advanced into the ET tube. I was able to visualize the lawrence. ET tube appears to be approximately 5 cm above the lawrence by measurement. Limited assessment was performed, however airways appear unremarkably clear and without secretion or blood. No other notable findings appreciated. Patient tolerated procedure well. No complicati ons were met. She is scheduled for morning chest x-ray. Saturations have improved to the high 90s and her FiO2 was titrated back to 50%. Complications: NONE Impression: Appropriate ET Tube replacement s/p patient self-extubation Coding CPT Codes Pulmonary/Thoracic - Pulmonary and Thoracic: 48968 Bronchoscopy, reclear airway ([id number]) [facility] Procedure Codes (Charges) Pulmonary/Thoracic Procedure 3: Pulmonary and Thoracic: 16355 Bronchoscopy, reclear airway
[2021-06-07] MEDS: FAMOTIDINE 20 MG TAB PO SCH ×2 (08:15→20:28)
[2021-06-07] MEDS: metroNIDAZOLE 500 MG/100 ML BAG IV SCH (08:16)
[2021-06-07] MEDS: LEVOTHYROXINE SODIUM 75 MCG TABLET PO SCH (08:16)
[2021-06-07] MEDS: AMIODARONE 200 MG TAB PO SCH (08:16)
[2021-06-07] MEDS: METOPROLOL TARTRATE 25 MG TAB PO SCH ×3 (08:16→20:29)
[2021-06-07] MEDS: IRON POLYSACCHARIDE COMPLEX 150 MG CAPSULE PO SCH (08:19)
--- NOTE | 2021-06-07 08:19 | Critical Care Progress Note ---
Date of Service June 07, 2021 Assessment & Plan (1) Cardiac arrest due to respiratory disorder: (2) Pulmonary edema: (3) Pleural effusion, bilateral: (4) Acute hypoxemic respiratory failure: (5) Hypercapnic respiratory failure: (6) Diastolic heart failure: (7) Submandibular abscess: (8) LORETTA (acute kidney injury): (9) Lactic acidosis: (10) Abnormal LFTs: Plan: Impression: 70-year-old female with known diastolic heart failure and recent ec hocardiogram showing preserved ejection fraction with no significant valvular abnormalities admitted with lethargy, hypoxemic hypercarbic respiratory failure, bilateral pleural effusions, and a submandibular abscess as well as acute kidney injury, lactic acidosis, abnormal liver function tests, and elevated troponin. 24-hour events: Patient presented to the emergency room after out of hospital respiratory and cardiac arrest. She was intubated in the ER. She is brought to the ICU. Central line arterial line and right-sided pigtail catheter were placed. This morning she self extubated and was reintubated due to low oxygen saturations. OMFS consultation completed, formal evaluation pending today Recommendations: 1. Neurologic: Continue sedation with propofol, fentanyl and Versed as tolerated. Imaging did not demonstrate any acute intracranial abnormality so defer additional work-up. We will keep sedated until respiratory and hemo dynamics allow for sedation break. 2. Cardiovascular: Appreciate cardiology consultation. CVP when central line was placed was about 20. Is down to 8 today with diuresis and removal of the pleural fluid. Lactate is cleared. Amiodarone per cardiology. Hold anticoagulation currently for procedures but will need to restart at some point - ok to restart heparin infusion from my standpoint, defer to cards. Grade 3 fluid retention and grade 3 pericardial and pleural effusions occurred in 1% or less of patients association with bosutinib. Troponin uptrending - per cardiology. Discontinue Norvasc. We will increase beta-nathalie if additional blood pressure control needed 3. Pulmonary: Acute hypoxemic and hypercarbic respiratory failure with bilateral pleural effusions. Pleural fluid appears borderline exudative based on lights criteria (protein ratio) but her normal LDH is somewhat reassuring. lymphocytic predominance. Await cytology. We will keep drain in place pending decrease in output. Respiratory alkalosis this a.m. and respiratory rate adjusted by respiratory therapy. She self extubated this morning and required fairly rapid reintubation due to hypoxemic respiratory failure, do not think she is ready to liberate from the ventilator just yet. We will continue current therapy for 24 hours and reassess tomorrow 4. GI: Abnormal liver function tests. Improving today. 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 Dietary consultation for initiation of tube feeding. GI prophylaxis with PPI 5. Renal: Acute kidney injury. Improved serum creatinine this morning. Will replace potassium, calcium. Electrolytes appear stable. 6. ID: Submandibular abscess. Patient been on clindamycin in the outpatient setting. Discussed with OMFS this morning. No need for surgical drainage currently. Recommended continue antibiotics. We will trend her white blood c ell count and clinical response to therapy. Interestingly, her procalcitonin was normal. Was transitioned from Unasyn to cefepime and Flagyl based on reported amoxicillin allergy. Will discontinue in place on meropenem for anaerobic coverage. Urinalysis did show 1+ leuk esterase, 10-30 white cells per high-power field and a few bacteria. Await cultures. Pattern would not be consistent with Lemieres syndrome. Cultures remain negative to date 7. Endocrine: Glycemic protocol per ICU pharmacist. Continue Synthroid. 8. Heme-onc: Patient has a history of CML. We will hold her bosutinib currently. May need to reach out to her oncology providers if this medication is to be restarted. DVT prophylaxis with heparin given renal dysfunction. Mild anemia this morning but does not meet criteria for transfusion. White count now normal Patient is critically ill at this point time with multiorgan system dysfunction and failure. She has significant probability of progressing. Total of 50 minutes critical care time was spent evaluation management stabilization of this patient exclusive of procedures. Will defer to admitting service to update family. Admission and Anticipated Discharge Date Admission Date: June 06, 2021 Subjective intubated and sedated Review of Systems Review of Systems: Unobtainable due to endotracheal tube Physical Exam Neck: trachea midline, no thyromegaly Cardiovascular: RRR, no murmur, no edema Gastrointestinal (Abdomen): normal bowel sounds, soft, nontender, no hepatosplenomegaly Musculoskeletal: Extremities: extremities normal to inspection Lymphatic: no cervical lymphadenopathy Results & Data Results & Data ([facility]) Vital Signs (Past 12 Hours) Vital Signs Temp Pulse Resp Pulse Ox 06/07/21 07:20 69 20 97 06/07/21 06:00 37.8 C H 59 L 20 92 06/07/21 05:00 37.6 C H 57 L 22 93 06/07/21 04:00 37.4 C 55 L 22 92 06/07/21 03:20 55 L 22 92 06/07/21 03:00 37.2 C 54 L 22 95 06/07/21 02:00 37.0 C 51 L 22 06/07/21 01:00 36.8 C 53 L 22 06/07/21 00:00 36.6 C 53 L 22 06/06/21 23:45 53 L 22 98 06/06/21 23:00 36.5 C 52 L 22 06/06/21 22:00 36.4 C L 54 L 23 06/06/21 21:00 36.3 C L 58 L 19 Laboratory Results Pleural fluid studies from right pleural effusion: pH 7.45 Differential 3% neutrophils 85% lymphocytes 12% mesothelial cells Total protein 3.6 LDH 109 Glucose 130 Gram stain many white blood cells with no organisms, culture pending Cytology pending Critical Care Results & Data Vital Signs (Past 12 Hours) Vital Signs Temp Pulse Resp Pulse Ox 06/07/21 07:20 69 20 97 06/07/21 06:00 37.8 C H 59 L 20 92 06/07/21 05:00 37.6 C H 57 L 22 93 06/07/21 04:00 37.4 C 55 L 22 92 06/07/21 03:20 55 L 22 92 06/07/21 03:00 37.2 C 54 L 22 95 06/07/21 02:00 37.0 C 51 L 22 06/07/21 01:00 36.8 C 53 L 22 06/07/21 00:00 36.6 C 53 L 22 06/06/21 23:45 53 L 22 98 06/06/21 23:00 36.5 C 52 L 22 06/06/21 22:00 36.4 C L 54 L 23 06/06/21 21:00 36.3 C L 58 L 19 Lab & Micro Results (Past 24 Hours) RBC 3.91 M/uL (4.2-5.4) L 06/07/21 WBC 7.92 K/uL (4.8-10.8) 06/07/21 Hgb 9.0 g/dL (12.0-16.0) L 06/07/21 Hct 30.1 % (37-47) L 06/07/21 MCV 77.0 fL (80-100) L 06/07/21 MCH 23.0 pg (25-34) L 06/07/21 MCHC 29.9 g/dL (32-36) L 06/07/21 RDW Standard Deviation 45.9 fL (36.4-46.3) 06/07/21 RDW Coefficient of Variation 16.5 % (11.5-14.5) H 06/07/21 Plt Count 268 K/uL (130-400) 06/07/21 MPV 10.2 fL (7.4-10.4) 06/07/21 Neutrophils (%) (Auto) 73.4 % 06/07/21 Lymphocytes (%) (Auto) 14.3 % 06/07/21 Monocytes # (Auto) 0.91 K/uL (0.11-0.59) H 06/07/21 Eosinophils # (Auto) 0.02 K/uL (0-0.5) 06/07/21 Immature Granulocyte % (Auto) 0.1 % 06/07/21 Neutrophils # (Auto) 5.82 K/uL (1.4-6.5) 06/07/21 Lymphocytes # (Auto) 1.13 K/uL (1.2-3.4) L 06/07/21 Monocytes # (Auto) 0.91 K/uL (0.11-0.59) H 06/07/21 Eosinophils # (Auto) 0.02 K/uL (0-0.5) 06/07/21 Basophils # (Auto) 0.03 K/uL (0-0.2) 06/07/21 Immature Granulocyte # (Auto) 0.01 K/uL (0.00-0.02) 06/07/21 Polychromasia 1+ 06/06/21 Hypochromasia Present 06/06/21 Na 139 mmol/L (136-145) 06/07/21 K 3.5 mmol/L (3.5-5.1) 06/07/21 Cl 104 mmol/L (98-107) 06/07/21 CO2 29 mmol/L (21-32) 06/07/21 Anion Gap 6.0 (3-11) 06/07/21 BUN 40 mg/dl (7-18) H 06/07/21 Creatinine 2.00 mg/dl (0.6-1.2) H 06/07/21 Estimated GFR ( Amer) 28.6 ml/min 06/07/21 Estimated GFR (Non-Af Amer) 24.7 ml/min 06/07/21 BUN/Creatinine Ratio 19.8 (10-20) 06/07/21 Glu 74 mg/dl (70-99) 06/07/21 Ca 7.5 mg/dl (8.5-10.1) L 06/07/21 Phosphorus Level 2.2 mg/dl (2.5-4.9) L 06/07/21 Total Bilirubin 0.5 mg/dl (0.2-1) 06/07/21 Direct Bilirubin 0.2 mg/dl (0-0.2) 06/07/21 AST 107 U/L (15-37) H 06/07/21 ALT 152 (12-78) H 06/07/21 Alkaline Phosphatase 127 U/L (45-117) H 06/07/21 TP 5.5 gm/dl (6.4-8.2) L 06/07/21 Albumin 2.5 gm/dl (3.4-5.0) L 06/07/21 Globulin 4.0 gm/dl (2.5-4.0) 06/06/21 Albumin/Globulin Ratio 0.8 (0.9-2) L 06/06/21 Mg 2.0 mg/dl (1.8-2.4) 06/07/21 04:21 06/07/21 Calcium Level 7.5 mg/dl (8.5-10.1) L 06/07/21 04:21 06/07/21 Prothromb Time International Ratio 1.3 (0.9-1.1) H 06/07/21 04:23 06/07/21 Venous Blood pH 7.06 (7.36-7.41) L 06/06/21 11:20 06/06/21 Venous Blood Partial Pressure CO2 102 mmHg (38-50) H 06/06/21 11:20 06/06/21 Venous Blood Partial Pressure O2 58 mmHg 06/06/21 11:20 06/06/21 Venous Blood HCO3 28 mmol/L 06/06/21 11:20 06/06/21 Venous Blood Base Excess -4.1 mEq/L 06/06/21 11:20 06/06/21 Venous Blood Oxygen Saturation 74.6 % 06/06/21 11:20 06/06/21 Blood Gas Barometric Pressure 722.4 mm/Hg 06/06/21 11:20 06/06/21 Bobby Test NA 06/07/21 05:22 06/07/21 Blood Gas Barometric Pressure 722.4 mm/Hg 06/06/21 11:20 06/06/21 Microbiology 06/06/21 18:15 Gram Stain - Final Pleural Fluid Diagnostic Findings (Past 24 Hours) Chest X-Ray 06/06/21 11:02 XR chest 1V portable CLINICAL HISTORY: SEPSIS. Evaluate cardiopulmonary status. Status post intubation COMPARISON STUDY: No previous studies for comparison. TECHNIQUE: 1 view of the chest FINDINGS: Single frontal view of the chest demonstrates the cardiomediastinal silhouette to be within normal limits. Endotracheal tube has been placed with its tip 6.0 cm above the lawrence. Compared to previous examination, there is evidence for diffuse interstitial edema most characteristic of congestive heart failure. No definite focal alveolar opacities or bronchograms are seen. There are again bilateral pleural effusions, right greater than left. There is no acute osseous pathology. IMPRESSION: Status post intubation with diffuse interstitial edema most characteristic of congestive heart failure. Bilateral pleural effusions, right greater than left are also present. ACT 112: Negative or not required by law. Electronically signed by: Chuck Quintero M.D. 06/06/2021 11:[address] 06/06/21 11:24 CT head/brain wo con CLINICAL HISTORY: ams . Post cardiac arrest COMPARISON STUDY: No previous studies for comparison. TECHNIQUE: Standard CT of the Brain was performed without IV contrast. A dose lowering technique was utilized adhering to the principles of ALARA. FINDINGS: Extraaxial space: There is no evidence for subdural hematoma. There are no extra-axial fluid collections. Ventricles and cisterns: The ventricles are normal in size and configuration. There is no evidence for midline shift or mass effect. Parenchyma: There is no subarachnoid or intraparenchymal hemorrhage. There is no evidence for an acute infarct or cerebral edema. There is homogeneous attenuation of the brain parenchyma. There are no gross mass lesions. Osseous structures: There is no evidence for an acute fracture. The visualized paranasal sinuses are clear. The mastoid air cells are clear bilaterally. Soft tissues: There is no evidence for focal soft tissue swelling. IMPRESSION: No acute intracerebral pathology. ACT 112: Negative or not required by law. Electronically signed by: Chuck Quintero M.D. 06/06/2021 12:53 PM Abdomen/Pelvis CT 06/06/21 11:31 CT abd pelvis wo con CLINICAL HISTORY: post cardiac arrest . History of abdominal pain COMPARISON STUDY: No previous studies for comparison. CT DOSE: 3062.82 mGy.cm TECHNIQUE: Standard CT of the Abdomen and Pelvis was performed without IV contrast. The patient did not receive oral contrast. A dose lowering technique was utilized adhering to the principles of ALARA. FINDINGS: Lung base: There are large bilateral pleural effusions at the lung bases, right slightly greater than left. Compressive atelectasis/collapse is present of both lower lobes. Abdominal cavity: There is no evidence for abdominal mass, adenopathy or ascites. Liver: The liver is homogeneous in attenuation on these limited noncontrast images.. Spleen: The spleen is homogeneous in attenuation on these limited noncontrast images. Pancreas: The pancreas is homogeneous in attenuation on these limited noncontrast images. Gall Bladder: Surgical clips are present from previous cholecystectomy. Adrenal glands: The adrenal glands are normal in size and attenuation on these limited noncontrast images. Kidneys: The kidneys are homogeneous in attenuation on these limited noncontrast images. There is no evidence for gross renal mass, calculus or hydronephrosis bilaterally. Bowel: The bowel loops are normally placed within the abdomen and pelvis without evidence for dilatation or obstruction. There is no evidence for mass lesion. There are no inflammatory changes present. There is no evidence for free air. There is a normal appendix in the right lower quadrant. Bladder: Marte catheter is present within the bladder. : There is no evidence for pelvic mass or adenopathy. There is evidence of previous hysterectomy. Vasculature: There is no evidence for focal aneurysmal dilatation of the abdominal aorta. Mild atherosclerotic calcification is present. Osseous structures: There is no acute osseous pathology. Mild degenerative changes are seen within the spine. IMPRESSION: 1. Large bilateral pleural effusions with compressive atelectasis/collapse of both lower lobes, right greater than left. 2. No acute intra-abdominal or pelvic abnormality on these limited noncontrast images. 3. Nonacute findings are delineated above. ACT 112: Negative or not required by law. Electronically signed by: Chuck Quintero M.D. 06/06/2021 12:[address] 06/06/21 11:31 CT chest diagnostic wo con CLINICAL HISTORY: Shortness of breath. Status post cardiac arrest. COMPARISON STUDY: Portable chest from 06/06/2021 TECHNIQUE: Standard CT of the Chest was performed without IV contrast. A dose lowering technique was utilized adhering to the principles of ALARA. FINDINGS: Airway: The airway is clear. No endobronchial lesion is identified. Lungs and pleura: There are very large bilateral pleural effusions, right greater than left with compressive atelectasis/collapse involving the right lower lobe and portions of the right upper lobe along with the left lower lobe. There is actually no evidence for diffuse interstitial edema as suspected radiographically. The very large pleural effusions accounts for the density seen radiographically. No confluent alveolar opacities are identified. Mediastinum: There is no evidence for pathologic adenopathy on these limited noncontrast images. The heart size is within normal limits. There is coronary artery calcification present. The thoracic aorta is within normal limits. Atherosclerotic calcification is present. There is no evidence for pericardial effusion. Osseous structures: There is no acute osseous pathology. IMPRESSION: 1. Very large bilateral pleural effusions with compressive atelectasis/collapse of both lower lobes, right greater than left. 2. No evidence for pulmonary edema. 3. Coronary artery calcification. ACT 112: Negative or not required by law. Electronically signed by: Chuck Quintero M.D. 06/06/2021 1:06 PM [address] Tissue Neck [address] 06/06/21 11:31 CT soft tissue neck wo con CLINICAL HISTORY: dental infection . Postcardiac arrest COMPARISON STUDY: No previous studies for comparison. TECHNIQUE: Standard CT of the Neck was performed without IV contrast. A dose lowering technique was utilized adhering to the principles of ALARA. FINDINGS: The study is limited by lack of intravenous contrast. An endotracheal tube is in place. Salivary glands: Parotid and submandibular salivary glands are within normal limits. The thyroid gland is heterogeneous in attenuation bilaterally. Lymph nodes: There are no pathologically enlarged lymph nodes. There is no evidence for soft tissue mass within the neck bilaterally. Airway: The cervical airway cannot be fully evaluated due to the placement of endotracheal tube. The epiglottis and aryepiglottic folds are normal bilaterally. The vocal cords are symmetric bilaterally. Vascular structures: No gross vascular abnormalities are seen. Paranasal sinuses:The imaged paranasal sinuses are clear. Osseous structures: There is a lucency present within the body of the mandible on the right with adjacent soft tissue swelling of the right side of the face. Focal fluid collection is seen adjacent to the body of the mandible. These findings are most characteristic of a mandibular abscess at this site. Posterior molars on the right are absent. IMPRESSION: 1. Limited examination due to lack of intravenous contrast and endotracheal tube in place. 2. CT confirms the presence of a right mandibular abscess with adjacent subcutaneous soft tissue swelling and fluid within the adjacent right side of the face. ACT 112: Negative or not required by law. Electronically signed by: Chuck Quintero M.D. 06/06/2021 1:01 PM Chest X-Ray 06/06/21 18:15 XR chest 1V portable at 6:28 PM CLINICAL HISTORY: Line/Chest Tube/OG Tube Placement. COMPARISON STUDY: Portable chest on 06/06/2021 at 11:12 AM TECHNIQUE: 1 view of the chest FINDINGS: Single frontal view of the chest demonstrates the heart size to be mildly enlarged. Endotracheal tube is unchanged. Left subclavian catheter has been placed with its tip in the distal SVC. There is no evidence of pneumothorax. OG tube has been placed with its tip extending below the edge of the film into the stomach. There is also been interval placement of a pigtail chest tube with right lung base with resolution of right pleural effusion. There is no evidence for pneumothorax. There is no evidence for small left pleural effusion and left basilar atelectasis. There has been interval improvement of pulmonary edema with only mild central vascular congestion remaining present. There is no acute osseous pathology. IMPRESSION: 1. Tubes and catheters as described. 2. Right-sided pigtail catheter chest tube with resolution of right pleural effusion and no evidence for pneumothorax. 3. Interval improvement of pulmonary edema with only mild central vascular congestion remaining present. 4. There is again left basilar atelectasis and persistent small left pleural effusion. ACT 112: Negative or not required by law. Electronically signed by: Chuck Quintero M.D. 06/06/2021 6:39 PM I & O Totals 24 Hours 06/06/21 06/07/21 06/08/21 06:59 06:59 06:59 Intake Total 2526.937 / 2526.937 Output Total 775 / 775 Balance 1751.937 / 1751.937 Cumulative 06/06/21 10:39 thru 06/07/21 06:57 Intake Total 2526.937 Output Total 775 Balance 1751.937 RT Ventilator Mngmt (Last Documented) Ventilator Ordered Settings Ventilator Support Mode Assist Control 06/07/21 07:20 Respiratory Rate 20 06/07/21 07:20 Ventilator Tidal Volume 400 06/07/21 07:20 Setting Minute Ventilation 8 06/07/21 07:20 Ventilator Positive Pressure 8 06/06/21 19:30 Support Setting Positive End Expiratory 8 06/07/21 07:20 Pressure Fraction of Inspired Oxygen 50 06/07/21 07:20 Machine Comment frequency found at 20 06/07/21 07:20 Ventilator - PT Measurements Respiratory Rate 20 Exhaled Tidal Volume 400 Minute Ventilation 8 Peak Inspiratory Airway 24 Pressure Plateau Pressure 18.5 Respiratory Cycle Inspiratory: 1:2.8 Expiratory Ratio Inspiratory Phase Time 0.8 End-Tidal CO2 36 Static Lung Compliance 38.10 Dynamic Lung Compliance 25.00 Normal Static Lung Compliance 46.00 Coding Level of Care Code Critical Care 1st 30-74 mins Diagnoses Cardiac arrest due to respiratory disorder J98.9; I46.8 Pulmonary edema J81.0 Chronicity: acute Pleural effusion, bilateral J90 Acute hypoxemic respiratory failure J96.01 Hypercapnic respiratory failure J96.92 Diastolic heart failure I50.30 Submandibular abscess K12.2 LORETTA (acute kidney injury) N17.9 Lactic acidosis E87.2 Abnormal LFTs R79.89 Time Spent (min) 50 (1) Pulmonary edema Chronicity: acute Qualified Code(s): J81.0 - Acute pulmonary edema
[2021-06-07] MEDS ORDERED: amLODIPine BESYLATE 5 MG TAB PO SCH (09:00)
[2021-06-07] MEDS ORDERED: [UNRECOGNIZED DRUG - OTHER] PO SCH (09:00)
[2021-06-07] MEDS ORDERED: MEROPENEM CONSULT ACTIVE PRN (09:09)
[2021-06-07] MEDS ORDERED: CALCIUM CHLORIDE 10% 500 MG in SODIUM CHLORIDE 0.9% 50 ML IV STA (09:13)
[2021-06-07] MEDS ORDERED: PEPTAMEN INTENSE VHP 1.0 CAL 1,000 ML BAG OG SCH (10:00)
--- NOTE | 2021-06-07 10:03 | XRay Report ---
XR chest 1V portable CLINICAL HISTORY: f/u TECHNIQUE: Single frontal radiograph of the chest was obtained. Comparison: Comparison is made to chest one view 06/06/2021 FINDINGS: Lines and tubes are stable. Cardiomegaly is noted. Prominence and cephalization of the vasculature is seen. Left pleural effusion is seen. IMPRESSION: 1. Mild pulmonary edema. 2. Stable left pleural effusion. ACT 112: Negative or not required by law. Electronically signed by: Juliano Foley M.D. 06/07/2021 10:01 AM
[2021-06-07] MEDS: POTASSIUM CHLORIDE / WTR 10 MEQ/100 ML PLCT IV SCH ×3 (10:17→13:49)
[2021-06-07] MEDS: MEROPENEM 500 MG in SYRINGE 0 ML IV SCH ×2 (10:18→17:11)
--- NOTE | 2021-06-07 11:25 | Hospitalist Progress Note ---
Date of Service June 07, 2021 Assessment & Plan (1) Cardiac arrest due to respiratory disorder: Plan: Out of hospital cardiac arrest, etiology is uncertain, most likely due to respiratory failure. Patient was successfully resuscitated. (2) Acute hypoxemic respiratory failure: Plan: Currently intubated and ventilated Vent management per retail specialist Wean as tolerated (3) Diastolic heart failure: Plan: Recent echo showed preserved ejection fraction Bilateral leg edema on exam. Patient will need diuresis. Cardiology and retail specialist environmental protection inspector (4) Submandibular abscess: Plan: noted on CT scan. oromaxillary facial surgeon has evaluated, no need for surgery for now place on unasyn (5) Pleural effusion, bilateral: Plan: Status post thoracentesis (6) LORETTA (acute kidney injury): Plan: continue pressure support. If creatinine does not improve may consider nephro consult (7) Lactic acidosis: Plan: Lactic acid is elevated. will continue pressure support. Patient received fluids. currently intubated. will monitor (8) Pulmonary edema: Admission and Anticipated Discharge Date Admission Date: June 06, 2021 Subjective This is a 70-year-old female who was intubated in the emergency department after she was admitted on account of out of hospital respiratory failure and cardiac arrest. She was successfully resuscitated, intubated in the emergency department and then transferred to ICU. Patient still currently intubated and ventilated, self extubated last night but was reintubated. Review of Systems Review of Systems: Unable to obtain Physical Exam Physical Exam: Intubated and ventilated HEENT--PERRL, EOMI, mucous membranes and oropharynx mildly dry Neck--supple. No JVD. No bruits. Thyroid normal, trachea midline, no adenopathy. Heart--normal S1 and S2. No murmurs, rubs or gallops. Lungs--clear bilaterally, no respiratory distress, no accessory muscle use. Abdomen--normal bowel sounds and soft. Mild epigastric and left sided abdominal pain Extremities--bilateral leg edema Dermatologic--normal skin turgor, normal color, no abnormal lymph nodes, no rash. Neurologic--intubated and ventilated Rheumatologic--bilateral leg edema. Psychiatric--intubated and ventilated Results & Data Results & Data ([facility]) Vital Signs (Past 12 Hours) Vital Signs Temp Pulse Resp Pulse Ox 06/07/21 10:20 100.2 F H 47 L 18 98 06/07/21 10:10 100.0 F H 57 L 20 99 06/07/21 10:00 100.0 F H 55 L 20 99 06/07/21 09:50 100.2 F H 57 L 17 99 06/07/21 09:40 100.2 F H 56 L 20 99 06/07/21 09:30 100.2 F H 60 20 99 06/07/21 09:20 100.2 F H 60 18 99 06/07/21 09:10 100.4 F H 61 20 98 06/07/21 09:00 100.6 F H 62 18 98 06/07/21 08:50 100.6 F H 65 20 98 06/07/21 08:40 100.8 F H 67 20 97 06/07/21 08:30 100.8 F H 66 20 97 06/07/21 08:20 100.6 F H 66 20 97 06/07/21 08:10 100.6 F H 64 20 97 06/07/21 08:00 100.6 F H 64 20 97 06/07/21 07:50 100.6 F H 65 20 97 06/07/21 07:40 100.6 F H 67 20 97 06/07/21 07:30 100.6 F H 68 20 97 06/07/21 07:20 100.4 F H 70 19 97 06/07/21 07:10 100.4 F H 70 20 97 06/07/21 07:00 100.4 F H 71 20 97 06/07/21 06:50 100.2 F H 66 20 97 06/07/21 06:40 100.2 F H 69 20 96 06/07/21 06:00 100.0 F H 59 L 20 92 06/07/21 05:00 99.7 F H 57 L 22 93 06/07/21 04:00 99.3 F 55 L 22 92 06/07/21 03:20 55 L 22 92 06/07/21 03:00 99.0 F 54 L 22 95 06/07/21 02:00 98.6 F 51 L 22 06/07/21 01:00 98.2 F 53 L 22 06/07/21 00:00 97.9 F 53 L 22 06/06/21 23:45 53 L 22 98 Laboratory Results Laboratory Results - last 24 hr 06/06/21 06/06/21 06/06/21 11:20 11:20 11:20 WBC 13.44 H RBC 4.35 Hgb 10.3 L POC Hgb Hct 36.8 L POC Hct MCV 84.6 MCH 23.7 L MCHC 28.0 L RDW Std Deviation 51.1 H RDW Coeff of Kvng 16.6 H Plt Count 462 H MPV 10.5 H Immature Gran % (Auto) 0.7 Neut % (Auto) 83.7 Lymph % (Auto) 10.7 Meade % (Auto) 4.5 Eos % (Auto) 0.1 Baso % (Auto) 0.3 Neut # (Auto) 11.25 H Lymph # (Auto) 1.44 Meade # (Auto) 0.61 H Eos # (Auto) 0.01 Baso # (Auto) 0.04 Immature Gran # (Auto) 0.09 H Polychromasia 1+ Hypochromasia Present PT 14.6 H INR 1.5 H APTT 33.4 H PTT Ratio 1.3 Sample Site POC pH POC pCO2 POC pO2 POC HCO3 POC Base Excess POC ABG O2 Sat Bobby Test VBG pH VBG pCO2 VBG pO2 VBG HCO3 VBG O2 Saturation VBG Base Excess Barometric Pressure O2 Delivery Device POC O2 Rate POC FiO2 Tidal Volume PEEP POC Sodium Sodium 138 POC Potassium Potassium 3.8 POC Chloride Chloride 101 Carbon Dioxide 26 POC Total CO2 Anion Gap 11.0 POC Anion Gap POC BUN BUN 38 H Creatinine 2.69 H POC Creatinine Est Cr Clr Drug Dosing 25.5 Est GFR ( Amer) 20.0 Est GFR (Non-Af Amer) 17.2 BUN/Creatinine Ratio 14.2 Glucose 214 H POC Glucose (other) Lactate Calcium 8.1 L POC Ioniz Calcium Opal Phosphorus Magnesium 2.5 H Total Bilirubin 0.6 Direct Bilirubin AST 129 H ALT 145 H Alkaline Phosphatase 172 H Troponin I 0.355 H* Total Protein 7.2 Albumin 3.2 L Globulin 4.0 Albumin/Globulin Ratio 0.8 L Procalcitonin Urine Color Urine Appearance Urine pH Ur Specific Adena Urine Protein Urine Glucose (UA) Urine Ketones Urine Blood Urine Nitrite Urine Bilirubin Urine Urobilinogen Ur Leukocyte Esterase Urine WBC (Auto) Urine RBC (Auto) U Hyaline Cast (Auto) U Epithel Cells (Auto) Urine Bacteria (Auto) Ur Renal Epithelial Cell Urine Mucus Urine Yeast Fluid Neutrophils % Fluid Lymphocytes % Fluid Eosinophils % Fluid Basophils % Fluid Meso/Macro/Meade % Fluid Comment Pleural Fluid Source Pleural Color Pleural Appearance Pleural pH Pleural WBC Pleural RBC Pleural Total Protein Pleural LDH Pleural Glucose Adenovirus (PCR) B. pertussis DNA (PCR) B.parapertussis DNA PCR C. pneumoniae DNA (PCR) Coronavirus OC43 (PCR) Coronavirus HKU1 (PCR) Coronavirus 229E (PCR) SARS-CoV-2 (PCR) Coronavirus NL63 (PCR) Human Metapneumovir PCR Influenza Type A (PCR) Influenza Type B (PCR) M. pneumoniae (PCR) Parainfluenza 1 (PCR) Parainfluenza 2 (PCR) Parainfluenza 3 (PCR) Parainfluenza 4 (PCR) RSV (PCR) Entero/Rhino (PCR) 06/06/21 06/06/21 06/06/21 11:20 11:20 11:20 WBC RBC Hgb POC Hgb Hct POC Hct MCV MCH MCHC RDW Std Deviation RDW Coeff of Kvng Plt Count MPV Immature Gran % (Auto) Neut % (Auto) Lymph % (Auto) Meade % (Auto) Eos % (Auto) Baso % (Auto) Neut # (Auto) Lymph # (Auto) Meade # (Auto) Eos # (Auto) Baso # (Auto) Immature Gran # (Auto) Polychromasia Hypochromasia PT INR APTT PTT Ratio Sample Site POC pH POC pCO2 POC pO2 POC HCO3 POC Base Excess POC ABG O2 Sat Bobby Test VBG pH 7.06 L VBG pCO2 102 H VBG pO2 58 VBG HCO3 28 VBG O2 Saturation 74.6 VBG Base Excess -4.1 Barometric Pressure 722.4 O2 Delivery Device POC O2 Rate POC FiO2 Tidal Volume PEEP POC Sodium Sodium POC Potassium Potassium POC Chloride Chloride Carbon Dioxide POC Total CO2 Anion Gap POC Anion Gap POC BUN BUN Creatinine POC Creatinine Est Cr Clr Drug Dosing Est GFR ( Amer) Est GFR (Non-Af Amer) BUN/Creatinine Ratio Glucose POC Glucose (other) Lactate 5.7 H* Calcium POC Ioniz Calcium Opal Phosphorus Magnesium Total Bilirubin Direct Bilirubin AST ALT Alkaline Phosphatase Troponin I Total Protein Albumin Globulin Albumin/Globulin Ratio Procalcitonin 0.13 Urine Color Urine Appearance Urine pH Ur Specific Adena Urine Protein Urine Glucose (UA) Urine Ketones Urine Blood Urine Nitrite Urine Bilirubin Urine Urobilinogen Ur Leukocyte Esterase Urine WBC (Auto) Urine RBC (Auto) U Hyaline Cast (Auto) U Epithel Cells (Auto) Urine Bacteria (Auto) Ur Renal Epithelial Cell Urine Mucus Urine Yeast Fluid Neutrophils % Fluid Lymphocytes % Fluid Eosinophils % Fluid Basophils % Fluid Meso/Macro/Meade % Fluid Comment Pleural Fluid Source Pleural Color Pleural Appearance Pleural pH Pleural WBC Pleural RBC Pleural Total Protein Pleural LDH Pleural Glucose Adenovirus (PCR) B. pertussis DNA (PCR) B.parapertussis DNA PCR C. pneumoniae DNA (PCR) Coronavirus OC43 (PCR) Coronavirus HKU1 (PCR) Coronavirus 229E (PCR) SARS-CoV-2 (PCR) Coronavirus NL63 (PCR) Human Metapneumovir PCR Influenza Type A (PCR) Influenza Type B (PCR) M. pneumoniae (PCR) Parainfluenza 1 (PCR) Parainfluenza 2 (PCR) Parainfluenza 3 (PCR) Parainfluenza 4 (PCR) RSV (PCR) Entero/Rhino (PCR) 06/06/21 06/06/21 06/06/21 11:24 11:30 11:41 WBC RBC Hgb POC Hgb 12.6 Hct POC Hct 37 MCV MCH MCHC RDW Std Deviation RDW Coeff of Kvng Plt Count MPV Immature Gran % (Auto) Neut % (Auto) Lymph % (Auto) Meade % (Auto) Eos % (Auto) Baso % (Auto) Neut # (Auto) Lymph # (Auto) Meade # (Auto) Eos # (Auto) Baso # (Auto) Immature Gran # (Auto) Polychromasia Hypochromasia PT INR APTT PTT Ratio Sample Site POC pH POC pCO2 POC pO2 POC HCO3 POC Base Excess POC ABG O2 Sat Bobby Test VBG pH VBG pCO2 VBG pO2 VBG HCO3 VBG O2 Saturation VBG Base Excess Barometric Pressure O2 Delivery Device POC O2 Rate POC FiO2 Tidal Volume PEEP POC Sodium 136 Sodium POC Potassium 3.8 Potassium POC Chloride 97 L Chloride Carbon Dioxide POC Total CO2 27 Anion Gap POC Anion Gap 17.0 POC BUN 38 H BUN Creatinine POC Creatinine 2.4 H Est Cr Clr Drug Dosing Est GFR ( Amer) Est GFR (Non-Af Amer) BUN/Creatinine Ratio Glucose POC Glucose (other) 210 H Lactate Calcium POC Ioniz Calcium Opal 1.14 Phosphorus Magnesium Total Bilirubin Direct Bilirubin AST ALT Alkaline Phosphatase Troponin I Total Protein Albumin Globulin Albumin/Globulin Ratio Procalcitonin Urine Color Dark Yellow Urine Appearance Cloudy A Urine pH 5.0 Ur Specific Adena 1.020 Urine Protein 2+ H Urine Glucose (UA) Negative Urine Ketones Trace H Urine Blood Negative Urine Nitrite Negative Urine Bilirubin 1+ H Urine Urobilinogen Negative Ur Leukocyte Esterase 1+ H Urine WBC (Auto) 10-30 H Urine RBC (Auto) 0-4 U Hyaline Cast (Auto) 10-30 H U Epithel Cells (Auto) >30 H Urine Bacteria (Auto) 1+ H Ur Renal Epithelial Cell 5-10 H Urine Mucus Present A Urine Yeast Not Reportable Fluid Neutrophils % Fluid Lymphocytes % Fluid Eosinophils % Fluid Basophils % Fluid Meso/Macro/Meade % Fluid Comment Pleural Fluid Source Pleural Color Pleural Appearance Pleural pH Pleural WBC Pleural RBC Pleural Total Protein Pleural LDH Pleural Glucose Adenovirus (PCR) Not Detected B. pertussis DNA (PCR) Not Detected B.parapertussis DNA PCR Not Detected C. pneumoniae DNA (PCR) Not Detected Coronavirus OC43 (PCR) Not Detected Coronavirus HKU1 (PCR) Not Detected Coronavirus 229E (PCR) Not Detected SARS-CoV-2 (PCR) Not Detected Coronavirus NL63 (PCR) Not Detected Human Metapneumovir PCR Not Detected Influenza Type A (PCR) Not Detected Influenza Type B (PCR) Not Detected M. pneumoniae (PCR) Not Detected Parainfluenza 1 (PCR) Not Detected Parainfluenza 2 (PCR) Not Detected Parainfluenza 3 (PCR) Not Detected Parainfluenza 4 (PCR) Not Detected RSV (PCR) Not Detected Entero/Rhino (PCR) Not Detected 06/06/21 06/06/21 06/06/21 13:01 18:15 18:15 WBC RBC Hgb POC Hgb Hct POC Hct MCV MCH MCHC RDW Std Deviation RDW Coeff of Kvng Plt Count MPV Immature Gran % (Auto) Neut % (Auto) Lymph % (Auto) Meade % (Auto) Eos % (Auto) Baso % (Auto) Neut # (Auto) Lymph # (Auto) Meade # (Auto) Eos # (Auto) Baso # (Auto) Immature Gran # (Auto) Polychromasia Hypochromasia PT INR APTT PTT Ratio Sample Site POC pH POC pCO2 POC pO2 POC HCO3 POC Base Excess POC ABG O2 Sat Bobby Test VBG pH VBG pCO2 VBG pO2 VBG HCO3 VBG O2 Saturation VBG Base Excess Barometric Pressure O2 Delivery Device POC O2 Rate POC FiO2 Tidal Volume PEEP POC Sodium Sodium POC Potassium Potassium POC Chloride Chloride Carbon Dioxide POC Total CO2 Anion Gap POC Anion Gap POC BUN BUN Creatinine POC Creatinine Est Cr Clr Drug Dosing Est GFR ( Amer) Est GFR (Non-Af Amer) BUN/Creatinine Ratio Glucose POC Glucose (other) Lactate 2.7 H* Calcium POC Ioniz Calcium Opal Phosphorus Magnesium Total Bilirubin Direct Bilirubin AST ALT Alkaline Phosphatase Troponin I Total Protein Albumin Globulin Albumin/Globulin Ratio Procalcitonin Urine Color Urine Appearance Urine pH Ur Specific Adena Urine Protein Urine Glucose (UA) Urine Ketones Urine Blood Urine Nitrite Urine Bilirubin Urine Urobilinogen Ur Leukocyte Esterase Urine WBC (Auto) Urine RBC (Auto) U Hyaline Cast (Auto) U Epithel Cells (Auto) Urine Bacteria (Auto) Ur Renal Epithelial Cell Urine Mucus Urine Yeast Fluid Neutrophils % 3 Fluid Lymphocytes % 85 Fluid Eosinophils % 0 Fluid Basophils % 0 Fluid Meso/Macro/Meade % 12 Fluid Comment Pleural Fluid Source RIGHT LUNG Pleural Color TIFFANY Pleural Appearance CLOUDY Pleural pH 7.45 H Pleural WBC 1063 Pleural RBC 48220 Pleural Total Protein 3.6 Pleural LDH 109 Pleural Glucose 130 Adenovirus (PCR) B. pertussis DNA (PCR) B.parapertussis DNA PCR C. pneumoniae DNA (PCR) Coronavirus OC43 (PCR) Coronavirus HKU1 (PCR) Coronavirus 229E (PCR) SARS-CoV-2 (PCR) Coronavirus NL63 (PCR) Human Metapneumovir PCR Influenza Type A (PCR) Influenza Type B (PCR) M. pneumoniae (PCR) Parainfluenza 1 (PCR) Parainfluenza 2 (PCR) Parainfluenza 3 (PCR) Parainfluenza 4 (PCR) RSV (PCR) Entero/Rhino (PCR) 06/06/21 06/07/21 06/07/21 18:45 04:21 04:21 WBC 7.92 RBC 3.91 L Hgb 9.0 L POC Hgb Hct 30.1 L POC Hct MCV 77.0 L D MCH 23.0 L MCHC 29.9 L RDW Std Deviation 45.9 RDW Coeff of Kvng 16.5 H Plt Count 268 MPV 10.2 Immature Gran % (Auto) 0.1 Neut % (Auto) 73.4 Lymph % (Auto) 14.3 Meade % (Auto) 11.5 Eos % (Auto) 0.3 Baso % (Auto) 0.4 Neut # (Auto) 5.82 Lymph # (Auto) 1.13 L Meade # (Auto) 0.91 H Eos # (Auto) 0.02 Baso # (Auto) 0.03 Immature Gran # (Auto) 0.01 Polychromasia Hypochromasia PT INR APTT PTT Ratio Sample Site POC pH POC pCO2 POC pO2 POC HCO3 POC Base Excess POC ABG O2 Sat Bobby Test VBG pH VBG pCO2 VBG pO2 VBG HCO3 VBG O2 Saturation VBG Base Excess Barometric Pressure O2 Delivery Device POC O2 Rate POC FiO2 Tidal Volume PEEP POC Sodium Sodium 139 POC Potassium Potassium 3.5 POC Chloride Chloride 104 Carbon Dioxide 29 POC Total CO2 Anion Gap 6.0 POC Anion Gap POC BUN BUN 40 H Creatinine 2.00 H D POC Creatinine Est Cr Clr Drug Dosing 34.3 Est GFR ( Amer) 28.6 Est GFR (Non-Af Amer) 24.7 BUN/Creatinine Ratio 19.8 Glucose 74 POC Glucose (other) Lactate 0.8 Calcium 7.5 L POC Ioniz Calcium Opal Phosphorus 2.2 L Magnesium 2.0 Total Bilirubin 0.5 Direct Bilirubin 0.2 AST 107 H ALT 152 H Alkaline Phosphatase 127 H Troponin I 0.796 H* Total Protein 5.5 L D Albumin 2.5 L Globulin Albumin/Globulin Ratio Procalcitonin Urine Color Urine Appearance Urine pH Ur Specific Adena Urine Protein Urine Glucose (UA) Urine Ketones Urine Blood Urine Nitrite Urine Bilirubin Urine Urobilinogen Ur Leukocyte Esterase Urine WBC (Auto) Urine RBC (Auto) U Hyaline Cast (Auto) U Epithel Cells (Auto) Urine Bacteria (Auto) Ur Renal Epithelial Cell Urine Mucus Urine Yeast Fluid Neutrophils % Fluid Lymphocytes % Fluid Eosinophils % Fluid Basophils % Fluid Meso/Macro/Meade % Fluid Comment Pleural Fluid Source Pleural Color Pleural Appearance Pleural pH Pleural WBC Pleural RBC Pleural Total Protein Pleural LDH Pleural Glucose Adenovirus (PCR) B. pertussis DNA (PCR) B.parapertussis DNA PCR C. pneumoniae DNA (PCR) Coronavirus OC43 (PCR) Coronavirus HKU1 (PCR) Coronavirus 229E (PCR) SARS-CoV-2 (PCR) Coronavirus NL63 (PCR) Human Metapneumovir PCR Influenza Type A (PCR) Influenza Type B (PCR) M. pneumoniae (PCR) Parainfluenza 1 (PCR) Parainfluenza 2 (PCR) Parainfluenza 3 (PCR) Parainfluenza 4 (PCR) RSV (PCR) Entero/Rhino (PCR) 06/07/21 06/07/21 04:23 05:22 WBC RBC Hgb POC Hgb Hct POC Hct MCV MCH MCHC RDW Std Deviation RDW Coeff of Kvng Plt Count MPV Immature Gran % (Auto) Neut % (Auto) Lymph % (Auto) Meade % (Auto) Eos % (Auto) Baso % (Auto) Neut # (Auto) Lymph # (Auto) Meade # (Auto) Eos # (Auto) Baso # (Auto) Immature Gran # (Auto) Polychromasia Hypochromasia PT 13.0 H INR 1.3 H APTT PTT Ratio Sample Site Art Line POC pH 7.50 H POC pCO2 34 L POC pO2 67 L POC HCO3 26 H POC Base Excess 3.0 H POC ABG O2 Sat 95.0 Bobby Test NA VBG pH VBG pCO2 VBG pO2 VBG HCO3 VBG O2 Saturation VBG Base Excess Barometric Pressure O2 Delivery Device Ventilator POC O2 Rate 22 POC FiO2 30 Tidal Volume 400 PEEP 8 POC Sodium Sodium POC Potassium Potassium POC Chloride Chloride Carbon Dioxide POC Total CO2 27 Anion Gap POC Anion Gap POC BUN BUN Creatinine POC Creatinine Est Cr Clr Drug Dosing Est GFR ( Amer) Est GFR (Non-Af Amer) BUN/Creatinine Ratio Glucose POC Glucose (other) Lactate Calcium POC Ioniz Calcium Opal Phosphorus Magnesium Total Bilirubin Direct Bilirubin AST ALT Alkaline Phosphatase Troponin I Total Protein Albumin Globulin Albumin/Globulin Ratio Procalcitonin Urine Color Urine Appearance Urine pH Ur Specific Adena Urine Protein Urine Glucose (UA) Urine Ketones Urine Blood Urine Nitrite Urine Bilirubin Urine Urobilinogen Ur Leukocyte Esterase Urine WBC (Auto) Urine RBC (Auto) U Hyaline Cast (Auto) U Epithel Cells (Auto) Urine Bacteria (Auto) Ur Renal Epithelial Cell Urine Mucus Urine Yeast Fluid Neutrophils % Fluid Lymphocytes % Fluid Eosinophils % Fluid Basophils % Fluid Meso/Macro/Meade % Fluid Comment Pleural Fluid Source Pleural Color Pleural Appearance Pleural pH Pleural WBC Pleural RBC Pleural Total Protein Pleural LDH Pleural Glucose Adenovirus (PCR) B. pertussis DNA (PCR) B.parapertussis DNA PCR C. pneumoniae DNA (PCR) Coronavirus OC43 (PCR) Coronavirus HKU1 (PCR) Coronavirus 229E (PCR) SARS-CoV-2 (PCR) Coronavirus NL63 (PCR) Human Metapneumovir PCR Influenza Type A (PCR) Influenza Type B (PCR) M. pneumoniae (PCR) Parainfluenza 1 (PCR) Parainfluenza 2 (PCR) Parainfluenza 3 (PCR) Parainfluenza 4 (PCR) RSV (PCR) Entero/Rhino (PCR) PG Care Time/CCT Total # of Minutes Spent Total Time Spent with Patient: Total time spent is greater than 50% in coordination of care (as documented) at patient's floor/unit and/or counseling patient: Coding Level of Care Code 07710 Subseq Hosp Care Lvl 2 Diagnoses Acute hypoxemic respiratory failure J96.01 Diastolic heart failure I50.30 Submandibular abscess K12.2 LORETTA (acute kidney injury) N17.9 Lactic acidosis E87.2 Pulmonary edema J81.0 Chronicity: acute Cardiac arrest due to respiratory disorder J98.9; I46.8 Pleural effusion, bilateral J90 Time Spent (min) 35 (1) Pulmonary edema Chronicity: acute Qualified Code(s): J81.0 - Acute pulmonary edema
[2021-06-07] MEDS: THIAMINE HCL 100 MG in SYRINGE 9 ML IV SCH (11:29)
[2021-06-07] MEDS ORDERED: CEFEPIME 2,000 MG in SYRINGE 0 ML IV SCH (12:00)
[2021-06-07] MEDS: NOREPINEPHRINE/D5W 8 MG/508 ML BAG IV SCH (17:10)
[2021-06-07] MEDS: BUMETANIDE 2 MG in SYRINGE 0 ML IV SCH (17:10)
[2021-06-07] MEDS: HEPARIN SOD 5,000 UNIT/0.5 ML VIAL SQ SCH (20:28)
[2021-06-07] MEDS: SENNA 8.6 MG TAB PO SCH (20:28)
--- NOTE | 2021-06-07 21:11 | Electrocardiogram Report ---
Test Reason : Blood Pressure : / mmHG Vent. Rate : 067 BPM Atrial Rate : 067 BPM P-R Int : 188 ms QRS Dur : 114 ms QT Int : 424 ms P-R-T Axes : 062 072 034 degrees QTc Int : 448 ms Normal sinus rhythm Normal ECG No previous ECGs available Confirmed by Keegan Jo ([id number]) on 06/07/2021 9:10:56 PM Referred By: REFERRED SELF Confirmed By:Keegan Jo
[2021-06-08] MEDS: propofoL 1,000 MG/100 ML VIAL IV SCH ×3 (01:24→09:11)
[2021-06-08] MEDS: MEROPENEM 500 MG in SYRINGE 0 ML IV SCH ×2 (01:25→10:17)
[2021-06-08 04:39] LABS: iSTAT Arterial Blood Gas HCO3 24 meg/L (19-24); iSTAT Arterial Blood Gas pCO2 36 mmHg (35-46); iSTAT Arterial Blood Gas pH 7.43 (7.35-7.45); iSTAT Arterial Blood Gas pO2 69 mmHg (80-95); iSTAT Carbon Dioxide 25 mmol/L (24-31); iSTAT FiO2 40 %; iSTAT Site Art Line
[2021-06-08] MEDS: fentaNYL DRIP 1,250 MCG/250 ML BAG IV SCH (04:46)
[2021-06-08 06:00] LABS: Basophils # (auto) 0.02 K/uL (0-0.2); Basophils % (auto) 0.2 %; Eosinophils # (auto) 0.07 K/uL (0-0.5); Eosinophils % (auto) 0.8 %; Hematocrit (blood only) 32.1 % (37-47); Hemoglobin 9.5 g/dL (12.0-16.0); Immature Granulocytes # (auto) 0.03 K/uL (0.00-0.02); Immature Granulocytes % (auto) 0.3 %; Lymphocytes # (auto) 1.09 K/uL (1.2-3.4); Mean Corpuscular Hemoglobin 22.8 pg (25-34); Mean Corpuscular Hgb Conc 29.6 g/dL (32-36); Mean Platelet Volume 9.6 fL (7.4-10.4); Monocytes # (auto) 1.24 K/uL (0.11-0.59); Monocytes % (auto) 13.7 %; Neutrophils # (auto) 6.62 K/uL (1.4-6.5); Platelet Count 231 K/uL (130-400); RDW Coefficient of Variation 16.8 % (11.5-14.5); RDW Standard Deviation 47.1 fL (36.4-46.3); Red Blood Count 4.17 M/uL (4.2-5.4); White Blood Count 9.07 K/uL (4.8-10.8)
[2021-06-08] MEDS: LEVOTHYROXINE SODIUM 75 MCG TABLET PO SCH (06:12)
[2021-06-08] MEDS: METOPROLOL TARTRATE 25 MG TAB PO SCH ×4 (06:12→23:54)
[2021-06-08 06:54] LABS: Alanine Aminotransferase 147 (12-78); Albumin Level 2.2 gm/dl (3.4-5.0); Alkaline Phosphatase 124 U/L (45-117); Aspartate Aminotransferase 72 U/L (15-37); BUN Creatinine Ratio 21.5 (10-20); Bilirubin,Total 0.3 mg/dl (0.2-1); Blood Urea Nitrogen 28 mg/dl (7-18); Calcium 8.1 mg/dl (8.5-10.1); Carbon Dioxide 27 mmol/L (21-32); Chloride 105 mmol/L (98-107); Creatinine Clr Calc Pharmacy 52.2 ml/min; Est GFR (African American) 47.7 ml/min; Est GFR (Non-African American) 41.1 ml/min; Glucose 81 mg/dl (70-99); Magnesium 2.1 mg/dl (1.8-2.4); Phosphorus 2.8 mg/dl (2.5-4.9); Potassium 2.8 mmol/L (3.5-5.1); Sodium 141 mmol/L (136-145); Total Protein 5.4 gm/dl (6.4-8.2)
[2021-06-08 07:36] LABS: Bilirubin Direct < 0.1 mg/dl (0-0.2)
[2021-06-08] MEDS: AMIODARONE 200 MG TAB PO SCH (07:56)
[2021-06-08] MEDS: FAMOTIDINE 20 MG TAB PO SCH ×2 (07:57→20:55)
[2021-06-08] MEDS: HEPARIN SOD 5,000 UNIT/0.5 ML VIAL SQ SCH (07:58)
--- NOTE | 2021-06-08 07:58 | Critical Care Progress Note ---
Date of Service June 08, 2021 Assessment & Plan (1) Cardiac arrest due to respiratory disorder: (2) Pulmonary edema: (3) Pleural effusion, bilateral: (4) Acute hypoxemic respiratory failure: (5) Hypercapnic respiratory failure: (6) Diastolic heart failure: (7) Submandibular abscess: (8) LORETTA (acute kidney injury): (9) Lactic acidosis: (10) Abnormal LFTs: Plan: Impression: 70-year-old female with known diastolic heart failure and recent ec hocardiogram showing preserved ejection fraction with no significant valvular abnormalities admitted with lethargy, hypoxemic hypercarbic respiratory failure, bilateral pleural effusions, and a submandibular abscess as well as acute kidney injury, lactic acidosis, abnormal liver function tests, and elevated troponin. 24-hour events: Patient self extubated yesterday and was emergently reintubated. She has done well over the last 24 hours. She is on minimal vent settings and despite fentanyl and propofol infusions she is currently awake and following commands. She is breathing comfortably. Her x-ray this morning demonstrated opacification of the left hemithorax likely consistent with a mainstem mucous plug. Recommendations: 1. Neurologic: We will place fentanyl on hold and start to wean propofol. We will plan on trial of extubation once bronchoscopy completed. 2. Cardiovascular: Appreciate cardiology consultation. Diuresed 2 L net negative over the last 24 hours. Chest tube drained 880 mL over the last 24hours. Heart rate and blood pressure are adequately controlled currently. Unable to do renal artery ultrasound/Doppler until the patient is extubated. Continue Bumex and metoprolol. 3. Pulmonary: Acute hypoxemic and hypercarbic respiratory failure with bilateral pleural effusions. Pleural fluid appears borderline exudative based on lights criteria (protein ratio) but her normal LDH is somewhat reassuring. lymphocytic predominance. Await cytology. We will keep drain in place pending decrease in output, still over 800 mL over the last 24 hours. Chest x-ray this morning demonstrating opacification of the left hemithorax likely consistent with mucous plug. We will plan for fiberoptic bronchoscopy to ensure the airways patent. Given mediastinal shift, doubt oral fluid accumulation. After bronchoscopy we will plan on SBT and probable ventilator liberation. Would likely benefit from outpatient overnight attended polysomnography, PFTs, and additional pulmonary work-up. She may require noninvasive positive pressure ventilation at night while sleeping in the hospital. 4. GI: Abnormal liver function tests. Improving today. I suspect this is related to congestive hepatopathy versus nonalcoholic steatohepatitis, although this is also described with bosutinib (13 to 26%) these will be trended over time. Dietary consultation for initiation of tube feeding. GI prophylaxis with PPI 5. Renal: Acute kidney injury. Improved serum creatinine this morning. Will replace potassium. Otherwise electrolyte appear stable. Cardiology recommended SPEP and UPEP however will hold off until the patient's kidney function is at baseline as this may adversely affect interpretation of results. 6. ID: Submandibular abscess. Continue meropenem for anaerobic coverage. Urinalysis did show 1+ leuk esterase, 10-30 white cells per high-power field and a few bacteria. Cultures negative to date. 7. Endocrine: Glycemic protocol per ICU pharmacist. Continue Synthroid. 8. Heme-onc: Patient has a history of CML. We will hold her bosutinib currently. May need to reach out to her oncology providers if this medication is to be restarted. DVT prophylaxis with heparin given renal dysfunction. Mild anemia this morning but does not meet criteria for transfusion. White count now normal Patient appears clinically improved today. Daughter was updated at the bedside yesterday by myself. If she is successfully extubated, will aggressively pursue out of bed, PT OT, and speech therapy evaluation for swallow. Admission and Anticipated Discharge Date Admission Date: June 06, 2021 Subjective Patient is intubated and sedated but she is awake alert following commands and breathing comfortably on the ventilator. Review of Systems Review of Systems: Unobtainable due to endotracheal tube Physical Exam Constitutional: Awake alert and following commands. Endotracheal tube and orogastric tubes are in place. Eyes: Pupils equal round reactive. Sclera anicteric Neck: trachea midline, no thyromegaly Respiratory: Chest tube site clean dry and intact. Decreased breath sounds at the bases with a few scattered crackles. Cardiovascular: RRR, no murmur, no edema Gastrointestinal (Abdomen): normal bowel sounds, soft, nontender, no hepatosplenomegaly Musculoskeletal: Extremities: extremities normal to inspection Lymphatic: no cervical lymphadenopathy Results & Data Results & Data ([facility]) Vital Signs (Past 12 Hours) Vital Signs Pulse Resp Pulse Ox 06/08/21 06:19 63 20 95 06/08/21 02:51 54 L 20 94 06/07/21 23:22 66 22 93 Critical Care Results & Data Vital Signs (Past 12 Hours) Vital Signs Pulse Resp Pulse Ox 06/08/21 06:19 63 20 95 06/08/21 02:51 54 L 20 94 06/07/21 23:22 66 22 93 Lab & Micro Results (Past 24 Hours) RBC 4.17 M/uL (4.2-5.4) L 06/08/21 WBC 9.07 K/uL (4.8-10.8) 06/08/21 Hgb 9.5 g/dL (12.0-16.0) L 06/08/21 Hct 32.1 % (37-47) L 06/08/21 MCV 77.0 fL (80-100) L 06/08/21 MCH 22.8 pg (25-34) L 06/08/21 MCHC 29.6 g/dL (32-36) L 06/08/21 RDW Standard Deviation 47.1 fL (36.4-46.3) H 06/08/21 RDW Coefficient of Variation 16.8 % (11.5-14.5) H 06/08/21 Plt Count 231 K/uL (130-400) 06/08/21 MPV 9.6 fL (7.4-10.4) 06/08/21 Neutrophils (%) (Auto) 73.0 % 06/08/21 Lymphocytes (%) (Auto) 12.0 % 06/08/21 Monocytes # (Auto) 1.24 K/uL (0.11-0.59) H 06/08/21 Eosinophils # (Auto) 0.07 K/uL (0-0.5) 06/08/21 Immature Granulocyte % (Auto) 0.3 % 06/08/21 Neutrophils # (Auto) 6.62 K/uL (1.4-6.5) H 06/08/21 Lymphocytes # (Auto) 1.09 K/uL (1.2-3.4) L 06/08/21 Monocytes # (Auto) 1.24 K/uL (0.11-0.59) H 06/08/21 Eosinophils # (Auto) 0.07 K/uL (0-0.5) 06/08/21 Basophils # (Auto) 0.02 K/uL (0-0.2) 06/08/21 Immature Granulocyte # (Auto) 0.03 K/uL (0.00-0.02) H 06/08/21 Na 141 mmol/L (136-145) 06/08/21 K 2.8 mmol/L (3.5-5.1) L 06/08/21 Cl 105 mmol/L (98-107) 06/08/21 CO2 27 mmol/L (21-32) 06/08/21 Anion Gap 9.0 (3-11) 06/08/21 BUN 28 mg/dl (7-18) H 06/08/21 Creatinine 1.31 mg/dl (0.6-1.2) H 06/08/21 Estimated GFR ( Amer) 47.7 ml/min 06/08/21 Estimated GFR (Non-Af Amer) 41.1 ml/min 06/08/21 BUN/Creatinine Ratio 21.5 (10-20) H 06/08/21 Glu 81 mg/dl (70-99) 06/08/21 Ca 8.1 mg/dl (8.5-10.1) L 06/08/21 Phosphorus Level 2.8 mg/dl (2.5-4.9) 06/08/21 Total Bilirubin 0.3 mg/dl (0.2-1) 06/08/21 Direct Bilirubin < 0.1 mg/dl (0-0.2) 06/08/21 AST 72 U/L (15-37) H 06/08/21 ALT 147 (12-78) H 06/08/21 Alkaline Phosphatase 124 U/L (45-117) H 06/08/21 TP 5.4 gm/dl (6.4-8.2) L 06/08/21 Albumin 2.2 gm/dl (3.4-5.0) L 06/08/21 Mg 2.1 mg/dl (1.8-2.4) 06/08/21 05:46 06/08/21 Calcium Level 8.1 mg/dl (8.5-10.1) L 06/08/21 05:46 06/08/21 Bobby Test NA 06/08/21 04:27 06/08/21 Microbiology 06/06/21 11:20 Aerobic Blood Culture - Preliminary Blood No growth in Aerobic bottle after 24 hours. Anaerobic Blood Culture - Preliminary No growth in Anaerobic bottle after 24 hours. 06/06/21 11:23 Aerobic Blood Culture - Preliminary Blood No growth in Aerobic bottle after 24 hours. Anaerobic Blood Culture - Preliminary No growth in Anaerobic bottle after 24 hours. 06/06/21 18:15 Gram Stain - Final Pleural Fluid Aerobic and Anaerobic Culture - Preliminary No growth to date. 06/06/21 11:41 Urine Culture - Preliminary Urine,Straight Cath No growth - Less than 1,000 colonies/mL, Final report to follow. Diagnostic Findings (Past 24 Hours) Chest X-Ray 06/07/21 07:00 XR chest 1V portable CLINICAL HISTORY: f/u TECHNIQUE: Single frontal radiograph of the chest was obtained. Comparison: Comparison is made to chest one view 06/06/2021 FINDINGS: Lines and tubes are stable. Cardiomegaly is noted. Prominence and cephalization of the vasculature is seen. Left pleural effusion is seen. IMPRESSION: 1. Mild pulmonary edema. 2. Stable left pleural effusion. ACT 112: Negative or not required by law. Electronically signed by: Juliano Foley M.D. 06/07/2021 10:01 AM Chest x-ray from this morning was independently reviewed. There is white out of the left hemithorax with tracheal deviation to the left. Tubes and lines appear to be in good position. The pigtail catheter is in place in the right hem ithorax with no evidence of pleural fluid reaccumulation. I & O Totals 24 Hours 06/07/21 06/08/21 06/09/21 06:59 06:59 06:59 Intake Total 2526.937 / 2526.937 1488.840 / 1488.840 75.893 / 75.893 Output Total 775 / 775 3590 / 3590 Balance 1751.937 / 1751.937 -2101.160 / -2101.160 75.893 / 75.893 Cumulative 06/06/21 10:39 thru 06/08/21 07:15 Intake Total 4091.670 Output Total 4365 Balance -273.330 RT Ventilator Mngmt (Last Documented) Ventilator Ordered Settings Ventilator Support Mode Assist Control 06/08/21 06:19 Respiratory Rate 20 06/08/21 06:19 Ventilator Tidal Volume 400 06/08/21 06:19 Setting Minute Ventilation 8.0 06/08/21 06:19 Ventilator Positive Pressure 5 12/12/21 08:00 Support Setting Positive End Expiratory 8 06/08/21 06:19 Pressure Fraction of Inspired Oxygen 40 06/08/21 06:19 Machine Comment weaned Fio2 to 40% 06/07/21 11:10 Ventilator - PT Measurements Respiratory Rate 20 Exhaled Tidal Volume 400 Minute Ventilation 8.0 Peak Inspiratory Airway 28 Pressure Plateau Pressure 22.0 Respiratory Cycle Inspiratory: 1:2.8 Expiratory Ratio Inspiratory Phase Time 0.80 End-Tidal CO2 37 Static Lung Compliance 28.57 Dynamic Lung Compliance 20.00 Normal Static Lung Compliance 45.00 Patient Measurements Comment Filter changed Coding Level of Care Code 30687 Subseq Hosp Care Lvl 3 Diagnoses Cardiac arrest due to respiratory disorder J98.9; I46.8 Pulmonary edema J81.0 Chronicity: acute Pleural effusion, bilateral J90 Acute hypoxemic respiratory failure J96.01 Hypercapnic respiratory failure J96.92 Diastolic heart failure I50.30 Submandibular abscess K12.2 LORETTA (acute kidney injury) N17.9 Lactic acidosis E87.2 Abnormal LFTs R79.89 (1) Pulmonary edema Chronicity: acute Qualified Code(s): J81.0 - Acute pulmonary edema
[2021-06-08] MEDS: IRON POLYSACCHARIDE COMPLEX 150 MG CAPSULE PO SCH (07:59)
[2021-06-08] MEDS: THIAMINE HCL 100 MG in SYRINGE 9 ML IV SCH (08:01)
[2021-06-08] MEDS: BUMETANIDE 2 MG in SYRINGE 0 ML IV SCH ×2 (08:01→16:30)
[2021-06-08] MEDS: POTASSIUM CHLORIDE / WTR 10 MEQ/100 ML PLCT IV SCH ×6 (08:03→14:09)
[2021-06-08] MEDS ORDERED: POTASSIUM CHLORIDE / WTR 10 MEQ/100 ML PLCT IV SCH (08:15)
[2021-06-08] MEDS: POTASSIUM CHLORIDE 20 MEQ/15 ML UDC PO SCH ×3 (08:30→20:55)
--- NOTE | 2021-06-08 08:31 | Procedure Note ---
Procedure Note Date of Service June 08, 2021 Note Procedure: Fiberoptic bronchoscopy Therapeutic aspiration of secretions, initial Provider: Lefty Norman MD Consent: Verbal consent obtained from the patient as she was awake on the ventilator. In addition the procedure was deemed urgent. No family immediately available Procedure: Patient was in the ICU intubated and on the ventilator. Chest x-ray this morning demonstrated opacification of left hemithorax consistent with probable mucous plugging. Bronchoscopy was indicated. Patient was currently undergoing SBT and was transitioned back to assist control. She was placed on 100% FiO2 on the ventilator. The fiberoptic bronchoscope was advanced through the existing endotracheal tube via the Bodai adapter. The tube was approximately 2 to 3 cm off the lawrence. There were some mucoid secretions present within the tube as well as within the main lawrence which were easily aspirated free. A large mucoid plug was identified within the left mainstem bronchus. This was removed using suction and saline irrigation. There were copious thick secretions emanating from the left lower lobe as well which were also lavaged free. These did not appear overtly purulent. No bleeding was identified. After the left side was cleared, and inspection on the right side was conducted. There were a few scant secretions present in the right lower lobe as well which were also lavaged free. There was no evidence of an endobronchial lesion. The mucosa appeared normal. The tracheobronchial tree had normal anatomic configuration. The bronchoscope was then removed from the airways. The patient tolerated the procedure well without obvious complication. Patient remains intubated in the ICU Impression: 1. Endotracheal tube in good position. 2. Mucous plug left mainstem bronchus, removed with suction and lavage Coding CPT Codes Pulmonary/Thoracic - Pulmonary and Thoracic: 50722 Bronchoscopy, clear airways ([id number]) [facility] Procedure Codes (Charges) Pulmonary/Thoracic Procedure 1: Pulmonary and Thoracic: 95028 Bronchoscopy, clear airways
[2021-06-08] MEDS ORDERED: Heparin IV Adult Wt-Based Standard WITH Bolus Protocol IV SCH (08:45)
--- NOTE | 2021-06-08 08:45 | Cardiology Progress Note ---
Date of Service June 08, 2021 Assessment & Plan (1) Atrial fibrillation: Plan: IMPRESSIONS: 1. Acute respiratory failure secondary to acute on chronic diastolic heart failure 2. Unclear etiology for her diastolic heart failure 3. Echocardiogram 04/15/2021 normal biventricular size and function without significant valvular heart disease and a small pericardial effusion 4. Status post ablation for atrial fibrillation and atrial flutter June 2020 5. Chronic kidney disease stage III with a baseline creatinine of 1.5 now with a creatinine at 2.5 6. 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 History of amiodarone and anticoagulation for her atrial fibrillation 8. History of multiple cardioversions 9. Persistent shortness of breath since her pulmonary vein ablation 10. History of welts and hives secondary to to diltiazem 11 history of breast cancer status post mastectomy without the need for radiation therapy or chemotherapy 12. Hypothyroidism mastectomy without the need for radiation therapy or chemotherapy Ms. Loera has had good diuresis on Bumex 2 mg IV twice daily.Her kidney function continues to improve. She was hypokalemic this morning which was replaced. Her brief need for CPR was likely related to hypoxic respiratory failure and not a primary cardiac arrhythmic event. She was acidotic with a pH of 7.06 and a lactate of greater than 5 She is in afib this morning with rates 110 -120s. As she is npo following extubation, I will start her on an amiodarone drip. Discussed with bricklayer tender and patient had her last procedure this morning with bronchoscopy and is ok to reinitiate anticoagulation. Ms. Loera can be maintained on a heparin drip for now. The question is why is she having such significant diastolic heart failure. Likely a component of dietary indiscretion. He has a renal artery US pending. Also pending is a TSH, iron studies, serum protein electrophoresis and a urine protein electrophoresis. Pericardial constriction is less likely as she never had radiation therapy or prior open heart surgery nor history of pericarditis.She has had therapeutic and diagnostic thoracentesis to rule out any potential malignancy as a cause for her effusion and path is pending. Her medication for CML should not cause heart failure symptoms. She will likely need right and left heart catheterization before she is discharged once she is stable to rule out significant pulmonary hypertension, interventricular dependence, and rule out obstructive coronary artery disease. Ultimately when she stabilizes we could consider Entresto with close monitoring of her renal function. Admission and Anticipated Discharge Date Admission Date: June 06, 2021 Subjective Ms. Loera remains on the ventilator. She was bronched at bedside this morning for mucous plug removal with weaning trial today and possible extubation. No events overnight. Afib on the monitor. BP has been stable. Review of Systems Review of Systems: unable to complete due to sedation/ventilation Physical Exam Constitutional: WD/WN, vitals as above Respiratory: normal respiratory effort, lungs clear to auscultation Cardiovascular: Rate/Rhythm: + abnormal rate Heart Sounds: no murmur Extremities: no edema Skin: no rashes, warm and dry Neurologic: sedated Results & Data ([facility]) Vital Signs (Past 12 Hours) Vital Signs Pulse Resp Pulse Ox 06/08/21 06:19 63 20 95 06/08/21 02:51 54 L 20 94 06/07/21 23:22 66 22 93
[2021-06-08] MEDS ORDERED: HEPARIN SOD (PORCINE) 1000 UNIT/ML IV ONE (09:15)
[2021-06-08] MEDS ORDERED: METOPROLOL TARTRATE 1 MG/ML VIAL IV PRN (09:36)
[2021-06-08] MEDS ORDERED: METOPROLOL TARTRATE 1 MG/ML VIAL IV ONE (09:40)
[2021-06-08] MEDS ORDERED: Heparin IV Adult Wt-Based Standard *NO* Bolus Protocol ONE (09:44)
[2021-06-08] MEDS: HEPARIN SODIUM/DEXTROSE 25,000 UNITS/500 ML BAG IV SCH (09:46)
[2021-06-08] MEDS ORDERED: AMIODARONE 200 MG TAB PO ONE (10:04)
--- NOTE | 2021-06-08 10:05 | XRay Report ---
SINGLE VIEW CHEST CLINICAL HISTORY: Respiratory failure. FINDINGS: An AP, portable, upright chest radiograph is compared to study dated 06/07/2021 and correla brian with chest CT dated 06/06/2021. The examination is degraded by portable technique and patient rot ation. An enteric tube, an endotracheal tube, and a left subclavian central venous catheter are uncha nged in position. A chest tube is again seen at the right lung base. The heart is enlarged noting ath erosclerotic calcification of the thoracic aorta. There is a large left pleural effusion with near-co mplete atelectasis/consolidation of the left lung. The right lung is grossly clear. No pneumothorax i s seen. The skeletal structures are osteopenic. The bony thorax is grossly intact. IMPRESSION: 1. Stable lines and tube. 2. A chest tube is again seen at the right lung base. The right lung is grossly clear. 3. Large left pleural effusion with near-complete atelectasis/consolidation of the left lung. This morin s significantly progressed as compared to yesterday. ACT 112: Negative or not required by law. Electronically signed by: Tahir Gates M.D. 06/08/2021 10:04 AM
[2021-06-08] MEDS ORDERED: HEPARIN SODIUM/DEXTROSE 25,000 UNITS/500 ML BAG IV SCH (10:15)
[2021-06-08 10:22] LABS: Ferritin 20.2 ng/ml (8-388); Thyroid Stimulating Hormone 2.01 uIu/ml (0.300-4.500)
[2021-06-08] MEDS ORDERED: STAT IV Infusion **Titration per Protocol STA (10:22)
[2021-06-08] MEDS ORDERED: AMIODARONE IV BOLUS & DRIP IV STA (10:22)
[2021-06-08] MEDS ORDERED: AMIODARONE / D5W 150 MG/100 ML BAG IV ONE (10:30)
[2021-06-08] MEDS ORDERED: 0.2 MICRON FILTER SET 1 EA IV ONE (10:30)
[2021-06-08] MEDS ORDERED: AMIODARONE / D5W 360 MG/200 ML BAG IV ONE (11:00)
[2021-06-08] MEDS: IRON SUCROSE 200 MG in 0.9 % SODIUM CHLORIDE 100 ML IV SCH (16:22)
[2021-06-08] MEDS: AMPICILLIN/SULBACTAM SOD 3,000 MG in 0.9 % SODIUM CHLORIDE 100 ML IV SCH ×2 (16:30→20:54)
[2021-06-08] MEDS ORDERED: AMIODARONE / D5W 360 MG/200 ML BAG IV SCH (17:00)
--- NOTE | 2021-06-08 17:13 | Hospitalist Progress Note ---
Date of Service June 08, 2021 Assessment & Plan (1) Cardiac arrest due to respiratory disorder: Plan: Out of hospital cardiac arrest, etiology is uncertain, most likely due to respiratory failure secondary to acute diastolic CHF as below ECG NSR, no ischemia. No ECHO done this admission. Was not hypotensive on admission, no evidence of sepsis Patient was successfully resuscitated. Remains in ICU but extubated on 06/08 (2) Acute hypoxemic respiratory failure: Plan: Acute respiratory failure with hypoxia as well as hypercapnia likely secondary to heart failure Initial VBG was 7.06/102 Initially intubated and ventilated With large pleural effusions bilaterally Now extubated on 06/08, on 4 L nasal cannula and doing well Status post chest tube on the right for pleural effusion which continues to drain Diuresing for heart failure as below Wean off O2 as tolerated (3) Diastolic heart failure: Plan: Acute diastolic CHF Recent echo as an outpatient showed preserved ejection fraction Bilateral leg edema on exam which is now improving Appreciate cardiology consultation With rapid atrial fibrillation here as well which may be contributing Continue Bumex 2 mg IV twice daily Replace potassium as needed Cardiology recommends iron studies-show iron deficiency-we will replace with IV iron; recommends SPEP/UPEP-pending; recommends TSH-normal For atrial fibrillation-rhythm control with amiodarone and rate control with metoprolol (4) Pleural effusion, bilateral: Plan: Large bilateral pleural effusions Status post thoracentesis with chest tube placement on the right-draining quite a bit and chest x-ray is much improved on the right Left pleural effusion but also had significant mucus plugging left mainstem bronchus which is now resolved status post bronchoscopy on the morning of 06/08 prior to extubation Fluid is most likely transudative but has borderline exudative properties, cytology pending Of note, does have a history of breast cancer, ovarian cancer, and CML Pulmonology consultation appreciated (5) Submandibular abscess: Plan: noted on CT scan. oromaxillary facial surgeon has evaluated, no need for surgery for now Continue on unasyn (6) LORETTA (acute kidney injury): Plan: With acute kidney injury in the setting of most likely CKD stage III Creatinine is now improved significantly down to 1.31 after diuresis Making plenty of urine Likely secondary to decreased renal perfusion in the setting of CHF Checking renal Doppler Follow BMP Renal dosing were appropriate (7) Lactic acidosis: Plan: Lactic acid is elevated on admission and now resolved Unclear reason but could be from heart failure? (8) Abnormal LFTs: Plan: AST and ALT and alkaline phosphatase elevated upon admission likely secondary to hepatic congestion from heart failure This could also be a side effect of her Bosulif for CML Now continuing to improve each day Follow LFTs (9) Atrial fibrillation: Plan: Has a long history of intermittent atrial fibrillation has had ablation in the past Was in rapid atrial fibrillation throughout the day today but now back in sinus rhythm Continue amiodarone but increase dose to 200 mg once daily as per cardiology Continue heparin drip for now and hold home Xarelto Replace potassium (10) CKD (chronic kidney disease) stage 3, GFR 30-59 ml/min: Plan: Noted in outpatient records as per cardiology -Avoid nephrotoxins -renally dose meds when appropriate -follow BMP (11) Hypokalemia: Plan: Potassium low today 2.8 secondary to loop diuretics Replacing aggressively with both IV and p.o. potassium chloride Follow BMP and magnesium (12) Iron deficiency anemia: Plan: Hemoglobin low at 9.5, MCV low at 77 She has long history of iron deficiency and takes oral iron supplements as an outpatient Follows with hematology/oncology for her CML as an outpatient Reports last EGD and colonoscopy were probably over 5 years ago Iron studies here show significant iron deficiency with ferritin of 20 and transferrin saturation of 10% Giving IV Venofer Follow CBC She will need follow-up with GI as an outpatient potentially (13) Elevated troponin: Plan: Troponin minimally elevated at 0.3 and then 0.7 after admission Could be secondary to CPR from cardiac contusion versus myocardial demand ischemia from severe hypoxemia No chest pain and no ischemic changes on EKG (14) Hypertension: Plan: Holding home amlodipine Continue metoprolol at increased dose for atrial fibrillation (15) Hypothyroidism: Plan: TSH is normal Continue home levothyroxine Plan: DVT prophylaxis-Heparin drip Disposition-continued stay in ICU Admission and Anticipated Discharge Date Admission Date: June 06, 2021 Subjective Pt extubated today, is awake, oriented when I saw her. Passed a FEES swallow study and eating regular diet. CHest tube draining 800mL today and putting out a lot of urine in her Marte. Was in [place] earlier today after having bronchoscopy this AM to clear out mucus plugging and then converted to sinus in the afternoon after IV lopressor. Review of Systems Review of Systems: All systems reviewed & are unremarkable except as noted in HPI & below Physical Exam Constitutional: WD/WN, vitals as above Eyes: + anicteric sclerae Neck: trachea midline, no thyromegaly Respiratory: normal respiratory effort; no cough Auscultation: + diminished lung sounds (at bases bilat); no wheezes Cardiovascular: RRR, no murmur, no edema Extremities: + vascular access device (L SC CVC) Chest (Breasts): Chest: + abnormal inspection of chest (right chest tube) Gastrointestinal (Abdomen): normal bowel sounds, soft, nontender, no hepatosplenomegaly Musculoskeletal: Extremities: extremities normal to inspection; no cyanosis and no clubbing Skin: no rashes, warm and dry Neurologic: moves all extremities and awake; no focal motor deficits Psychiatric: A+Ox3, euthymic affect Genitourinary: Marte in place draining clear yellow urine Lymphatic: no lymphedema Results & Data Results & Data ([facility]) Vital Signs (Past 12 Hours) Vital Signs Temp Pulse Resp BP Pulse Ox 06/08/21 14:00 37.7 C H 60 22 95 06/08/21 13:30 37.7 C H 68 26 H 94 06/08/21 13:00 37.6 C H 72 26 H 94 06/08/21 12:30 37.5 C 83 38 H 94 06/08/21 12:00 37.6 C H 82 37 H 95 06/08/21 11:30 37.5 C 80 15 94 06/08/21 11:00 37.5 C 126 H 19 94 06/08/21 10:30 37.5 C 121 H 24 96 06/08/21 10:13 119 H 135/50 L 06/08/21 10:00 37.3 C 124 H 30 H 91 06/08/21 09:30 37.2 C 110 H 31 H 90 06/08/21 09:00 37.1 C 134 H 27 H 95 06/08/21 08:45 37.1 C 118 H 24 94 06/08/21 08:44 126 H 28 H 97 06/08/21 08:30 37.1 C 115 H 13 97 06/08/21 08:15 37.1 C 112 H 23 93 06/08/21 08:00 37.1 C 100 H 22 92 06/08/21 07:45 37.1 C 57 L 20 96 06/08/21 07:30 37.1 C 56 L 20 96 06/08/21 07:15 37.1 C 57 L 20 94 06/08/21 07:00 37.1 C 56 L 20 94 06/08/21 06:19 63 20 95 Laboratory Results 06/08/21 06/08/21 06/08/21 Range/Units 16:58 11:40 05:46 WBC (4.8-10.8) K/uL RBC (4.2-5.4) M/uL Hgb (12.0-16.0) g/dL Hct (37-47) % MCV (80-100) fL MCH (25-34) pg MCHC (32-36) g/dL RDW Std Deviation (36.4-46.3) fL RDW Coeff of Kvng (11.5-14.5) % Plt Count (130-400) K/uL MPV (7.4-10.4) fL Immature Gran % (Auto) % Neut % (Auto) % Lymph % (Auto) % [place] % (Auto) % Eos % (Auto) % Baso % (Auto) % Neut # (Auto) (1.4-6.5) K/uL Lymph # (Auto) (1.2-3.4) K/uL [place] # (Auto) (0.11-0.59) K/uL Eos # (Auto) (0-0.5) K/uL Baso # (Auto) (0-0.2) K/uL Immature Gran # (Auto) (0.00-0.02) K/uL APTT Pending PTT Ratio Pending Sample Site POC pH (7.35-7.45) POC pCO2 (35-46) mmHg POC pO2 (80-95) mmHg POC HCO3 (19-24) holden/L POC Total CO2 (24-31) mmol/L POC Base Excess (-9-1.8) holden/L POC ABG O2 Sat (90-95) % Bobby Test O2 Delivery Device POC O2 Rate Minute Ventilation POC FiO2 % Tidal Volume PEEP Sodium (136-145) mmol/L Potassium (3.5-5.1) mmol/L Chloride (98-107) mmol/L Carbon Dioxide (21-32) mmol/L Anion Gap (3-11) BUN (7-18) mg/dl Creatinine (0.6-1.2) mg/dl Est Cr Clr Drug Dosing ml/min Est GFR ( Amer) ml/min Est GFR (Non-Af Amer) ml/min BUN/Creatinine Ratio (10-20) Glucose (70-99) mg/dl POC Glucose 81 (70-99) mg/dl Calcium (8.5-10.1) mg/dl Phosphorus (2.5-4.9) mg/dl Magnesium (1.8-2.4) mg/dl Iron 10 L (35-150) mcg/dl TIBC 334 (250-450) mcg/dl Transferrin 239 (200-360) mg/dl Ferritin 20.2 (8-388) ng/ml Total Bilirubin (0.2-1) mg/dl Direct Bilirubin (0-0.2) mg/dl AST (15-37) U/L ALT (12-78) Alkaline Phosphatase (45-117) U/L Total Protein (6.4-8.2) gm/dl Albumin (3.4-5.0) gm/dl TSH 2.010 (0.300-4.500) uIu/ml 06/08/21 06/08/21 06/08/21 Range/Units 05:46 05:46 04:27 WBC 9.07 (4.8-10.8) K/uL RBC 4.17 L (4.2-5.4) M/uL Hgb 9.5 L (12.0-16.0) g/dL Hct 32.1 L (37-47) % MCV 77.0 L (80-100) fL MCH 22.8 L (25-34) pg MCHC 29.6 L (32-36) g/dL RDW Std Deviation 47.1 H (36.4-46.3) fL RDW Coeff of Kvng 16.8 H (11.5-14.5) % Plt Count 231 (130-400) K/uL MPV 9.6 (7.4-10.4) fL Immature Gran % (Auto) 0.3 % Neut % (Auto) 73.0 % Lymph % (Auto) 12.0 % [place] % (Auto) 13.7 % Eos % (Auto) 0.8 % Baso % (Auto) 0.2 % Neut # (Auto) 6.62 H (1.4-6.5) K/uL Lymph # (Auto) 1.09 L (1.2-3.4) K/uL [place] # (Auto) 1.24 H (0.11-0.59) K/uL Eos # (Auto) 0.07 (0-0.5) K/uL Baso # (Auto) 0.02 (0-0.2) K/uL Immature Gran # (Auto) 0.03 H (0.00-0.02) K/uL APTT PTT Ratio Sample Site Art Line POC pH 7.43 (7.35-7.45) POC pCO2 36 (35-46) mmHg POC pO2 69 L (80-95) mmHg POC HCO3 24 (19-24) holden/L POC Total CO2 25 (24-31) mmol/L POC Base Excess 0.0 (-9-1.8) holden/L POC ABG O2 Sat 94.0 (90-95) % Bobby Test NA O2 Delivery Device Ventilator POC O2 Rate 20 Minute Ventilation 8.0 POC FiO2 40 % Tidal Volume 400 PEEP 8 Sodium 141 (136-145) mmol/L Potassium 2.8 L D (3.5-5.1) mmol/L Chloride 105 (98-107) mmol/L Carbon Dioxide 27 (21-32) mmol/L Anion Gap 9.0 (3-11) BUN 28 H (7-18) mg/dl Creatinine 1.31 H D (0.6-1.2) mg/dl Est Cr Clr Drug Dosing 52.2 ml/min Est GFR ( Amer) 47.7 ml/min Est GFR (Non-Af Amer) 41.1 ml/min BUN/Creatinine Ratio 21.5 H (10-20) Glucose 81 (70-99) mg/dl POC Glucose (70-99) mg/dl Calcium 8.1 L (8.5-10.1) mg/dl Phosphorus 2.8 (2.5-4.9) mg/dl Magnesium 2.1 (1.8-2.4) mg/dl Iron (35-150) mcg/dl TIBC (250-450) mcg/dl Transferrin (200-360) mg/dl Ferritin (8-388) ng/ml Total Bilirubin 0.3 (0.2-1) mg/dl Direct Bilirubin < 0.1 D (0-0.2) mg/dl AST 72 H (15-37) U/L ALT 147 H (12-78) Alkaline Phosphatase 124 H (45-117) U/L Total Protein 5.4 L (6.4-8.2) gm/dl Albumin 2.2 L (3.4-5.0) gm/dl TSH (0.300-4.500) uIu/ml 06/07/21 Range/Units 17:24 WBC (4.8-10.8) K/uL RBC (4.2-5.4) M/uL Hgb (12.0-16.0) g/dL Hct (37-47) % MCV (80-100) fL MCH (25-34) pg MCHC (32-36) g/dL RDW Std Deviation (36.4-46.3) fL RDW Coeff of Kvng (11.5-14.5) % Plt Count (130-400) K/uL MPV (7.4-10.4) fL Immature Gran % (Auto) % Neut % (Auto) % Lymph % (Auto) % [place] % (Auto) % Eos % (Auto) % Baso % (Auto) % Neut # (Auto) (1.4-6.5) K/uL Lymph # (Auto) (1.2-3.4) K/uL [place] # (Auto) (0.11-0.59) K/uL Eos # (Auto) (0-0.5) K/uL Baso # (Auto) (0-0.2) K/uL Immature Gran # (Auto) (0.00-0.02) K/uL APTT PTT Ratio Sample Site POC pH (7.35-7.45) POC pCO2 (35-46) mmHg POC pO2 (80-95) mmHg POC HCO3 (19-24) holden/L POC Total CO2 (24-31) mmol/L POC Base Excess (-9-1.8) holden/L POC ABG O2 Sat (90-95) % Bobby Test O2 Delivery Device POC O2 Rate Minute Ventilation POC FiO2 % Tidal Volume PEEP Sodium (136-145) mmol/L Potassium (3.5-5.1) mmol/L Chloride (98-107) mmol/L Carbon Dioxide (21-32) mmol/L Anion Gap (3-11) BUN (7-18) mg/dl Creatinine (0.6-1.2) mg/dl Est Cr Clr Drug Dosing ml/min Est GFR ( Amer) ml/min Est GFR (Non-Af Amer) ml/min BUN/Creatinine Ratio (10-20) Glucose (70-99) mg/dl POC Glucose 77 (70-99) mg/dl Calcium (8.5-10.1) mg/dl Phosphorus (2.5-4.9) mg/dl Magnesium (1.8-2.4) mg/dl Iron (35-150) mcg/dl TIBC (250-450) mcg/dl Transferrin (200-360) mg/dl Ferritin (8-388) ng/ml Total Bilirubin (0.2-1) mg/dl Direct Bilirubin (0-0.2) mg/dl AST (15-37) U/L ALT (12-78) Alkaline Phosphatase (45-117) U/L Total Protein (6.4-8.2) gm/dl Albumin (3.4-5.0) gm/dl TSH (0.300-4.500) uIu/ml Diagnostic Findings Chest X-Ray 06/08/21 07:00 SINGLE VIEW CHEST CLINICAL HISTORY: Respiratory failure. FINDINGS: An AP, portable, upright chest radiograph is compared to study dated 06/07/2021 and correlated with chest CT dated 06/06/2021. The examination is degraded by portable technique and patient rotation. An enteric tube, an endotracheal tube, and a left subclavian central venous catheter are unchanged in position. A chest tube is again seen at the right lung base. The heart is enlarged noting atherosclerotic calcification of the thoracic aorta. There is a large left pleural effusion with near-complete atelectasis/consolidation of the left lung. The right lung is grossly clear. No pneumothorax is seen. The skeletal structures are osteopenic. The bony thorax is grossly intact. IMPRESSION: 1. Stable lines and tube. 2. A chest tube is again seen at the right lung base. The right lung is grossly clear. 3. Large left pleural effusion with near-complete atelectasis/consolidation of the left lung. This has significantly progressed as compared to yesterday. ACT 112: Negative or not required by law. Electronically signed by: Tahir Gates M.D. 06/08/2021 10:04 AM PG Care Time/CCT Total # of Minutes Spent Total Time Spent with Patient: Total time spent is greater than 50% in coordination of care (as documented) at patient's floor/unit and/or counseling patient: Coding Level of Care Code 36922 Subseq Hosp Care Lvl 3 Diagnoses Cardiac arrest due to respiratory disorder J98.9; I46.8 Acute hypoxemic respiratory failure J96.01 Diastolic heart failure I50.30 Submandibular abscess K12.2 Pleural effusion, bilateral J90 LORETTA (acute kidney injury) N17.9 Lactic acidosis E87.2 Abnormal LFTs R79.89 Atrial fibrillation I48.91 CKD (chronic kidney disease) stage 3, GFR 30-59 ml/min N18.30 Hypokalemia E87.6 Iron deficiency anemia D50.9 Elevated troponin R77.8 Hypertension I10 Hypothyroidism E03.9
[2021-06-08 17:31] LABS: Partial Thromboplastin Ratio 2.9
[2021-06-08 17:33] LABS: Partial Thromboplastin Time 75.2 Seconds (21.0-31.0)
[2021-06-08] MEDS: SENNA 8.6 MG TAB PO SCH (20:55)
[2021-06-08] MEDS ORDERED: oxyCODONE HCL IR 5 MG TAB (IMMEDIATE RELEASE) PO PRN (23:05)
[2021-06-08] MEDS: ACETAMINOPHEN 500 MG TAB PO PRN (23:54)
[2021-06-09 01:13] LABS: Partial Thromboplastin Ratio 2.3
[2021-06-09 01:14] LABS: Partial Thromboplastin Time 59.4 Seconds (21.0-31.0)
[2021-06-09] MEDS: AMPICILLIN/SULBACTAM SOD 3,000 MG in 0.9 % SODIUM CHLORIDE 100 ML IV SCH ×4 (04:00→21:46)
[2021-06-09] MEDS: HEPARIN SODIUM/DEXTROSE 25,000 UNITS/500 ML BAG IV SCH ×2 (04:01→10:01)
[2021-06-09 05:27] LABS: Partial Thromboplastin Ratio 2.1
[2021-06-09 05:42] LABS: Partial Thromboplastin Time 56.1 Seconds (21.0-31.0)
[2021-06-09 05:46] LABS: Alanine Aminotransferase 107 (12-78); Albumin Level 2.2 gm/dl (3.4-5.0); Alkaline Phosphatase 118 U/L (45-117); Aspartate Aminotransferase 41 U/L (15-37); BUN Creatinine Ratio 15.5 (10-20); Bilirubin Direct < 0.1 mg/dl (0-0.2); Bilirubin,Total 0.3 mg/dl (0.2-1); Blood Urea Nitrogen 20 mg/dl (7-18); Calcium 8.2 mg/dl (8.5-10.1); Carbon Dioxide 32 mmol/L (21-32); Chloride 107 mmol/L (98-107); Creatinine Clr Calc Pharmacy 51.8 ml/min; Est GFR (African American) 47.3 ml/min; Est GFR (Non-African American) 40.8 ml/min; Glucose 101 mg/dl (70-99); Phosphorus 3.7 mg/dl (2.5-4.9); Potassium 4.5 mmol/L (3.5-5.1); Sodium 141 mmol/L (136-145); Total Protein 5.7 gm/dl (6.4-8.2)
[2021-06-09 05:50] LABS: Magnesium 2.1 mg/dl (1.8-2.4)
[2021-06-09 05:56] LABS: Basophils # (auto) 0.02 K/uL (0-0.2); Basophils % (auto) 0.2 %; Eosinophils # (auto) 0.11 K/uL (0-0.5); Hemoglobin 9.8 g/dL (12.0-16.0); Immature Granulocytes # (auto) 0.02 K/uL (0.00-0.02); Immature Granulocytes % (auto) 0.2 %; Lymphocytes # (auto) 1.31 K/uL (1.2-3.4); Lymphocytes % (auto) 11.8 %; Mean Corpuscular Hemoglobin 23.2 pg (25-34); Mean Corpuscular Hgb Conc 28.8 g/dL (32-36); Mean Corpuscular Volume 80.6 fL (80-100); Mean Platelet Volume 10.7 fL (7.4-10.4); Monocytes # (auto) 1.61 K/uL (0.11-0.59); Monocytes % (auto) 14.5 %; Neutrophils # (auto) 8.04 K/uL (1.4-6.5); Neutrophils % (auto) 72.3 %; Platelet Count 272 K/uL (130-400); RDW Coefficient of Variation 17.3 % (11.5-14.5); RDW Standard Deviation 50.9 fL (36.4-46.3); Red Blood Count 4.22 M/uL (4.2-5.4); White Blood Count 11.11 K/uL (4.8-10.8)
[2021-06-09] MEDS: LEVOTHYROXINE SODIUM 75 MCG TABLET PO SCH (06:31)
[2021-06-09] MEDS: METOPROLOL TARTRATE 25 MG TAB PO SCH ×3 (06:31→16:54)
--- NOTE | 2021-06-09 08:12 | Ultrasound Report ---
US duplex renal artery HISTORY: 70 years-old Female [place] screening study in a patient with possible renal artery stenosis COMPARISON: CT abdomen pelvis 06/06/2021 TECHNIQUE: Multiple real-time sonographic images of the and renal vascular structures were obtained a ssessing grayscale appearance, color and spectral flow FINDINGS: Study is limited secondary to patient condition. There is normal plug flow within the proximal abdominal aorta with peak systolic velocity 140 cm/s. The right kidney measures 11.4 cm in length. Patent right renal vein. No elevated peak systolic loss is identified within the right renal artery. Peak systolic velocities measure up to 142 cm/s within t he proximal aspect of the right renal artery. Resistive index measures up to 0.8. The left kidney measures 12.2 cm in length and is partially obscured by bowel gas. The left renal art brandi and vein are not diagnostically visualized. IMPRESSION: Limited exam as above. No sonographic evidence of right renal artery stenosis. The left r enal artery is obscured by bowel gas. ACT 112: Negative or not required by law. The above report was generated using voice recognition software. It may contain grammatical, syntax o r spelling errors. Electronically signed by: Kevin Stephenson M.D. 06/09/2021 8:10 AM
--- NOTE | 2021-06-09 08:23 | Critical Care Progress Note ---
Date of Service June 09, 2021 Assessment & Plan (1) Cardiac arrest due to respiratory disorder: (2) Pulmonary edema: (3) Pleural effusion, bilateral: (4) Acute hypoxemic respiratory failure: (5) Hypercapnic respiratory failure: (6) Diastolic heart failure: (7) Submandibular abscess: (8) LORETTA (acute kidney injury): (9) Lactic acidosis: (10) Abnormal LFTs: Plan: Impression: 70-year-old female with known diastolic heart failure and recent ec hocardiogram showing preserved ejection fraction with no significant valvular abnormalities admitted with lethargy, hypoxemic hypercarbic respiratory failure, bilateral pleural effusions, and a submandibular abscess as well as acute kidney injury, lactic acidosis, abnormal liver function tests, and elevated troponin. 24-hour events: Patient underwent urgent bronchoscopy for mucous plugging on the left yesterday morning. Afterwards she was extubated. She has done well overnight. Her chest tube on the right continues to put out several 100 cc per 24-hour.. Her x-ray today demonstrated opacification of the left lung base consistent with left effusion which appears progressive from previous. She has been hemodynamically stable currently. She did have an episode of atrial fibrillation with rapid ventricular response after the bronchoscopy. This resolved with 1 dose of IV metoprolol. She is currently in sinus. She is anticoagulated on heparin. Recommendations: 1. Neurologic: No current issues. PT OT and out of bed as tolerated. 2. Cardiovascular: Per cardiology. Diuresed 1.5 L net negative over the last 24 hours. Chest tube drained 510 mL over the last 24hours. Heart rate and blood pressure are adequately controlled currently. Currently on heparin infusion. Rate/rhythm control and anticoagulation per cardiology. 3. Pulmonary: Acute hypoxemic and hypercarbic respiratory failure with bilateral pleural effusions. Pleural fluid appears borderline exudative based on lights criteria (protein ratio) but her normal LDH is somewhat reassuring. lymphocytic predominance. Await cytology. We will keep drain in place pending decrease in output, still over 500 mL over the last 24 hours. Chest x-ray this morning demonstrating increasing effusion on the left confirmed with ultrasound. We will hold her heparin and in 4 hours perform thoracentesis on the left. Discussed with cardiology long-term management for pleural effusions. Given the improvement in her kidney function would recommend increasing diuretics. Per cardiology. Would likely benefit from outpatient overnight attended polysomnography, PFTs, and additional pulmonary work-up. She may require noninvasive positive pressure ventilation at night while sleeping in the hospital. 4. GI: Abnormal liver function tests. Continue to downtrend. I suspect this is related to congestive hepatopathy versus nonalcoholic steatohepatitis, although this is also described with bosutinib (13 to 26%) these will be trended over time. Advancing diet as tolerated. 5. Renal: Acute kidney injury. Stable serum creatinine this morning. 6. ID: Submandibular abscess. No surgical intervention per OMFS. Continue Unasyn for anaerobic coverage (tolerating despite reported amoxicillin allergy). Can likely transition to Augmentin once taking p.o. Urinalysis did show 1+ leuk esterase, 10-30 white cells per high-power field and a few bacteria. Cultures negative to date. Duration of antibiotics per OMFS. Still with low grade fevers, but improving. 7. Endocrine: Glycemic protocol per ICU pharmacist. Continue Synthroid. 8. Heme-onc: Patient has a history of CML. We will hold her bosutinib currently. May need to reach out to her oncology providers if this medication is to be restarted. DVT prophylaxis with heparin given renal dysfunction. Mild anemia this morning but does not meet criteria for transfusion. White count increased this morning Patient appears clinically improved today. Daughter was updated at the bedside yesterday by myself. Okay to discontinue Marte catheter. Out of bed as tolerated. Will discuss with nursing if peripheral access is adequate to discontinue central line. Okay to transfer out of the intensive care unit. Critical care services will sign off. Pulmonary will follow until the chest drain is removed. Admission and Anticipated Discharge Date Admission Date: June 06, 2021 Subjective Patient seen and examined. EMR reviewed. She is doing well clinically. She f eels that her shortness of breath is somewhat better. She denies any pain from chest tube. No chest pain or palpitations. She is tolerating regular diet. No nausea vomiting or diarrhea. No fevers chills or night sweats. She overall feels clinically improved. Review of Systems Review of Systems: All systems reviewed & are unremarkable except as noted in Subjective Physical Exam Neck: trachea midline, no thyromegaly Respiratory: * Clear on the right, decreased left lung base with dullness to percussion Cardiovascular: RRR, no murmur, no edema Gastrointestinal (Abdomen): normal bowel sounds, soft, nontender, no hepatosplenomegaly Musculoskeletal: Extremities: extremities normal to inspection Lymphatic: no cervical lymphadenopathy Results & Data Critical Care Results & Data Vital Signs (Past 12 Hours) Vital Signs Temp Pulse Resp BP Pulse Ox 06/09/21 09:00 37.8 C H 64 12 125/56 L 96 06/09/21 08:00 37.6 C H 61 24 121/53 L 95 06/09/21 07:00 37.6 C H 65 35 H 95 Lab & Micro Results (Past 24 Hours) RBC 4.22 M/uL (4.2-5.4) 06/09/21 WBC 11.11 K/uL (4.8-10.8) H 06/09/21 Hgb 9.8 g/dL (12.0-16.0) L 06/09/21 Hct 34.0 % (37-47) L 06/09/21 MCV 80.6 fL (80-100) 06/09/21 MCH 23.2 pg (25-34) L 06/09/21 MCHC 28.8 g/dL (32-36) L 06/09/21 RDW Standard Deviation 50.9 fL (36.4-46.3) H 06/09/21 RDW Coefficient of Variation 17.3 % (11.5-14.5) H 06/09/21 Plt Count 272 K/uL (130-400) 06/09/21 MPV 10.7 fL (7.4-10.4) H 06/09/21 Neutrophils (%) (Auto) 72.3 % 06/09/21 Lymphocytes (%) (Auto) 11.8 % 06/09/21 Monocytes # (Auto) 1.61 K/uL (0.11-0.59) H 06/09/21 Eosinophils # (Auto) 0.11 K/uL (0-0.5) 06/09/21 Immature Granulocyte % (Auto) 0.2 % 06/09/21 Neutrophils # (Auto) 8.04 K/uL (1.4-6.5) H 06/09/21 Lymphocytes # (Auto) 1.31 K/uL (1.2-3.4) 06/09/21 Monocytes # (Auto) 1.61 K/uL (0.11-0.59) H 06/09/21 Eosinophils # (Auto) 0.11 K/uL (0-0.5) 06/09/21 Basophils # (Auto) 0.02 K/uL (0-0.2) 06/09/21 Immature Granulocyte # (Auto) 0.02 K/uL (0.00-0.02) 06/09/21 Na 141 mmol/L (136-145) 06/09/21 K 4.5 mmol/L (3.5-5.1) 06/09/21 Cl 107 mmol/L (98-107) 06/09/21 CO2 32 mmol/L (21-32) 06/09/21 Anion Gap 2.0 (3-11) L 06/09/21 BUN 20 mg/dl (7-18) H 06/09/21 Creatinine 1.32 mg/dl (0.6-1.2) H 06/09/21 Estimated GFR ( Amer) 47.3 ml/min 06/09/21 Estimated GFR (Non-Af Amer) 40.8 ml/min 06/09/21 BUN/Creatinine Ratio 15.5 (10-20) 06/09/21 Glu 101 mg/dl (70-99) H 06/09/21 Ca 8.2 mg/dl (8.5-10.1) L 06/09/21 Phosphorus Level 3.7 mg/dl (2.5-4.9) 06/09/21 Total Bilirubin 0.3 mg/dl (0.2-1) 06/09/21 Direct Bilirubin < 0.1 mg/dl (0-0.2) 06/09/21 AST 41 U/L (15-37) H 06/09/21 ALT 107 (12-78) H 06/09/21 Alkaline Phosphatase 118 U/L (45-117) H 06/09/21 TP 5.7 gm/dl (6.4-8.2) L 06/09/21 Albumin 2.2 gm/dl (3.4-5.0) L 06/09/21 Mg 2.1 mg/dl (1.8-2.4) 06/09/21 04:40 06/09/21 Calcium Level 8.2 mg/dl (8.5-10.1) L 06/09/21 04:40 06/09/21 Microbiology 06/06/21 11:20 Aerobic Blood Culture - Preliminary Blood No growth in Aerobic bottle after 48 hours. Anaerobic Blood Culture - Preliminary No growth in Anaerobic bottle after 48 hours. 06/06/21 11:23 Aerobic Blood Culture - Preliminary Blood No growth in Aerobic bottle after 48 hours. Anaerobic Blood Culture - Preliminary No growth in Anaerobic bottle after 48 hours. 06/06/21 11:41 Urine Culture - Final Urine,Straight Cath No growth - less than 1,000 colonies/mL. 06/06/21 18:15 Acid Fast Bacilli Smear - Final Pleural Fluid Diagnostic Findings (Past 24 Hours) Chest X-Ray 06/08/21 07:00 SINGLE VIEW CHEST CLINICAL HISTORY: Respiratory failure. FINDINGS: An AP, portable, upright chest radiograph is compared to study dated 06/07/2021 and correlated with chest CT dated 06/06/2021. The examination is degraded by portable technique and patient rotation. An enteric tube, an endotracheal tube, and a left subclavian central venous catheter are unchanged in position. A chest tube is again seen at the right lung base. The heart is enlarged noting atherosclerotic calcification of the thoracic aorta. There is a large left pleural effusion with near-complete atelectasis/consolidation of the left lung. The right lung is grossly clear. No pneumothorax is seen. The skeletal structures are osteopenic. The bony thorax is grossly intact. IMPRESSION: 1. Stable lines and tube. 2. A chest tube is again seen at the right lung base. The right lung is grossly clear. 3. Large left pleural effusion with near-complete atelectasis/consolidation of the left lung. This has significantly progressed as compared to yesterday. ACT 112: Negative or not required by law. Electronically signed by: Tahir Gates M.D. 06/08/2021 10:04 AM Renal Artery Duplex 06/09/21 00:00 US duplex renal artery HISTORY: 70 years-old Female [place] screening study in a patient with possible renal artery stenosis COMPARISON: CT abdomen pelvis 06/06/2021 TECHNIQUE: Multiple real-time sonographic images of the and renal vascular structures were obtained assessing grayscale appearance, color and spectral flow FINDINGS: Study is limited secondary to patient condition. There is normal plug flow within the proximal abdominal aorta with peak systolic velocity 140 cm/s. The right kidney measures 11.4 cm in length. Patent right renal vein. No elevated peak systolic loss is identified within the right renal artery. Peak systolic velocities measure up to 142 cm/s within the proximal aspect of the right renal artery. Resistive index measures up to 0.8. The left kidney measures 12.2 cm in length and is partially obscured by bowel gas. The left renal artery and vein are not diagnostically visualized. IMPRESSION: Limited exam as above. No sonographic evidence of right renal artery stenosis. The left renal artery is obscured by bowel gas. ACT 112: Negative or not required by law. The above report was generated using voice recognition software. It may contain grammatical, syntax or spelling errors. Electronically signed by: Kevin Stephenson M.D. 06/09/2021 8:10 AM Chest X-Ray 06/09/21 07:00 XR chest 1V portable CLINICAL HISTORY: resp failure TECHNIQUE: Single frontal radiograph of the chest was obtained. Comparison: Comparison is made to chest one view 08/09/2020 FINDINGS: Interval removal of endotracheal and enteric tubes. Left subclavian venous catheter and right chest tube are unchanged. The cardiomediastinal silhouette is obscured. Left airspace opacity is seen, the left lung is better aerated than on the prior exam. Moderate left pleural effusion, decreased from prior exam. IMPRESSION: No acute chest disease. ACT 112: Negative or not required by law. Electronically signed by: Juliano Foley M.D. 06/09/2021 8:52 AM I & O Totals 24 Hours 06/08/21 06/09/21 06/10/21 06:59 06:59 06:59 Intake Total 1488.840 / 2671.936 1527.993 / 1764.993 86.8 / 86.8 Output Total 3590 / 3590 3210 / 3210 150 / 150 Balance -2101.160 / -2101.160 -1445.007 / -1445.007 -63.2 / -63.2 Cumulative 06/06/21 10:39 thru 06/09/21 09:07 Intake Total 5867.570 Output Total 7725 Balance -1857.430 RT Ventilator Mngmt (Last Documented) Ventilator Ordered Settings Ventilator Support Mode CPAP 06/08/21 08:44 Respiratory Rate 12 06/09/21 09:00 Ventilator Tidal Volume 400 06/08/21 06:19 Setting Minute Ventilation 9.7 06/08/21 08:44 Ventilator Positive Pressure 10 06/08/21 08:44 Support Setting Positive End Expiratory 8 06/08/21 08:44 Pressure Fraction of Inspired Oxygen 40 06/08/21 08:44 Machine Comment weaned Fio2 to 40% 06/07/21 11:10 Ventilator - PT Measurements Respiratory Rate 12 Exhaled Tidal Volume 347 Minute Ventilation 9.7 Peak Inspiratory Airway 20 Pressure Plateau Pressure 22.0 Respiratory Cycle Inspiratory: 1:2.8 Expiratory Ratio Inspiratory Phase Time 0.80 End-Tidal CO2 36 Static Lung Compliance 28.57 Dynamic Lung Compliance 28.92 Normal Static Lung Compliance 47.00 Patient Measurements Comment Pt placed on SBT post-bronchoscpy per Dr. Norman. Coding Level of Care Code 09462 Subseq Hosp Care Lvl 3 Diagnoses Cardiac arrest due to respiratory disorder J98.9; I46.8 Pulmonary edema J81.0 Chronicity: acute Pleural effusion, bilateral J90 Acute hypoxemic respiratory failure J96.01 Hypercapnic respiratory failure J96.92 Diastolic heart failure I50.30 Submandibular abscess K12.2 LORETTA (acute kidney injury) N17.9 Lactic acidosis E87.2 Abnormal LFTs R79.89 (1) Pulmonary edema Chronicity: acute Qualified Code(s): J81.0 - Acute pulmonary edema
[2021-06-09] MEDS: IRON SUCROSE 200 MG in 0.9 % SODIUM CHLORIDE 100 ML IV SCH (08:51)
[2021-06-09] MEDS: IRON POLYSACCHARIDE COMPLEX 150 MG CAPSULE PO SCH (08:52)
[2021-06-09] MEDS: FAMOTIDINE 20 MG TAB PO SCH (08:53)
[2021-06-09] MEDS: AMIODARONE 200 MG TAB PO SCH (08:53)
[2021-06-09] MEDS: THIAMINE HCL 100 MG in SYRINGE 9 ML IV SCH (08:54)
[2021-06-09] MEDS: POTASSIUM CHLORIDE 20 MEQ/15 ML UDC PO SCH ×2 (08:54→10:01)
[2021-06-09] MEDS: BUMETANIDE 2 MG in SYRINGE 0 ML IV SCH ×2 (08:54→16:53)
--- NOTE | 2021-06-09 08:54 | XRay Report ---
XR chest 1V portable CLINICAL HISTORY: resp failure TECHNIQUE: Single frontal radiograph of the chest was obtained. Comparison: Comparison is made to chest one view 08/09/2020 FINDINGS: Interval removal of endotracheal and enteric tubes. Left subclavian venous catheter and right chest t ube are unchanged. The cardiomediastinal silhouette is obscured. Left airspace opacity is seen, the l eft lung is better aerated than on the prior exam. Moderate left pleural effusion, decreased from gavino or exam. IMPRESSION: No acute chest disease. ACT 112: Negative or not required by law. Electronically signed by: Juliano Foley M.D. 06/09/2021 8:52 AM
--- NOTE | 2021-06-09 09:26 | Cardiology Progress Note ---
Date of Service June 09, 2021 Assessment & Plan (1) Atrial fibrillation: Plan: IMPRESSIONS: 1. Acute respiratory failure secondary to acute on chronic diastolic heart failure 2. Unclear etiology for her diastolic heart failure 3. Echocardiogram 04/15/2021 normal biventricular size and function without significant valvular heart disease and a small pericardial effusion 4. Status post ablation for atrial fibrillation and atrial flutter June 2020 5. Chronic kidney disease stage III with a baseline creatinine of 1.5 now with a creatinine at 2.5 6. 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 History of amiodarone and anticoagulation for her atrial fibrillation 8. History of multiple cardioversions 9. Persistent shortness of breath since her pulmonary vein ablation 10. History of welts and hives secondary to to diltiazem 11 history of breast cancer status post mastectomy without the need for radiation therapy or chemotherapy 12. Hypothyroidism mastectomy without the need for radiation therapy or chemotherapy Ms. Loera has had good diuresis on Bumex 2 mg IV twice daily and is net negative 1800mls. Her chest tube continues to have high output.Her kidney function is stable. Her brief need for CPR was likely related to hypoxic respiratory failure and not a primary cardiac arrhythmic event. She was acidotic with a pH of 7.06 and a lactate of greater than 5 She was in a rapid afib 06/08 and her amiodarone was increased from 100mg to 200 mg. Now in rate controlled sinus rhythm. She is on a heparin gtt for stroke prevention The question is why is she having such significant diastolic heart failure. Likely a component of dietary indiscretion. He has a renal artery US pending. TSH was normal. Her iron was low and Venofer replacement was ordered. UPEP and SPEP pending. Pericardial constriction is less likely as she never had radiation therapy or prior open heart surgery nor history of pericarditis.She has had therapeutic and diagnostic thoracentesis to rule out any potential malignancy as a cause for her effusion and path is pending. Her medication for CML should not cause heart failure symptoms. She will have a right and left diagnostic catheterization tomorrow with Dr. Moran. Her heparin can run until she is collected to go for the cath. She will be npo at midnight. It is unclear if more diuretic would benefit Ms. Loera's effusions given that she is putting out plenty of urine and is responding well to the Bumix BID. Patient does have 2+ proteinuria and low serum albumin. Will consult nephrology Admission and Anticipated Discharge Date Admission Date: June 06, 2021 Subjective Ms. Loera is up and awake this morning, extubated yesterday. She does not feel sob. Her chest is tender from her round of CPR. No palpitations or dizziness. She ate breakfast and has an appetite. SR on the monitor. Review of Systems Review of Systems: All systems reviewed & are unremarkable except as noted in HPI & below Physical Exam Constitutional: WD/WN, vitals as above Respiratory: normal respiratory effort, lungs clear to auscultation Cardiovascular: Rate/Rhythm: regular rate and regular rhythm Heart Sounds: no murmur Extremities: no edema Skin: no rashes, warm and dry Neurologic: moves all extremities and awake Psychiatric: Orientation: oriented x 3 Results & Data ([facility]) Vital Signs (Past 12 Hours) Vital Signs Temp Pulse Resp BP Pulse Ox 06/09/21 09:00 37.8 C H 64 12 125/56 L 96 06/09/21 08:00 37.6 C H 61 24 121/53 L 95 06/09/21 07:00 37.6 C H 65 35 H 95
--- NOTE | 2021-06-09 10:45 | Nephrology Consultation ---
Date of Consultation June 09, 2021 Assessment & Plan (1) CKD (chronic kidney disease) stage 3, GFR 30-59 ml/min: * Baseline Cr 1.5 * 06/16 urine sediment negative for blood, positive for hyaline casts * 06/16 renal artery duplex: R 11.4cm, L 12.2cm. No R [place], L RA poorly visualized * Renal impairment is likely on the basis of microvascular disease * Monitor PRP (2) Proteinuria: * Proteinuria likely on the basis of TKI/VEGF inhibitor. Agree w/ holding Bosutinib * Urinalysis revealed 2+ protein on a concentrated sample * Will order 24 hour urine collection to quantitate urinary protein excretion * Await results of UIEP study * Recommend consultation w/ Oncology to determine whether patient will be able to resume Bosutinib (lower dose?) or need to transition to alternative therapy History of Present Illness Reason for Consultation: Proteinuria Attending Physician: Taya Diana MD History of Present Illness Ms. Loera is a 70 year old white female who is seen at the request of Ani James PA-c for evaluation of proteinuria. Medical records in the EMR were reviewed today and are summarized as follows: Ms. Loera recently moved from [place] to [place], [place] to be closer to her family. Her baseline Cr is reported to be 1.5 ([facility] - PCP is Dr. Lion). Her medical history is significant for diastolic heart failure, atrial fibrillation, hypothyroidism, HTN, CML, breast and ovarian cancer. Her home medical regimen includes bosutinib (TKI, VEGF inhibitor). Ms. Loera was admitted to [facility] 06/06/21 due to respiratory failure. She was intubated by EMS at home and required a brief course of CPR. ICU evaluation revealed bilateral pleural effusions. R chest drain was placed. Echocardiogram 04/15/21 as outpatient revealed normal LVEF, no valvular abnormality and only small pericardial effusion. Cause of pleural/pericardial effusion is unclear. Serum albumin is low and urinalysis is + for protein. Allergies Allergy/AdvReac Type Severity Reaction Status Date / Time amoxicillin Allergy Unknown Unverified 06/06/21 12:18 Home Medications Medication Instructions Recorded Confirmed Type acetaminophen 325 mg tablet 325 mg PO QID PRN 06/06/21 06/06/21 History amiodarone 100 mg tablet 100 mg PO DAILY 06/06/21 06/06/21 History amlodipine 10 mg tablet 10 mg PO DAILY 06/06/21 06/06/21 History bosutinib 400 mg tablet (Bosulif) 400 mg PO DAILY 06/06/21 06/06/21 History clindamycin HCl 300 mg capsule 300 mg PO TID 06/06/21 06/06/21 History furosemide 40 mg tablet 40 mg PO BID 06/06/21 06/06/21 History levothyroxine 75 mcg tablet 75 mcg PO DAILY 06/06/21 06/06/21 History metoprolol tartrate 25 mg tablet 25 mg PO BID 06/06/21 06/06/21 History ytwbiadv-ioxotvd-ydxe-iron 18 1 tab PO DAILY 06/06/21 06/06/21 History mg-FA 400 mcg-vit K 25 mcg tablet (One-A-Day Women's Complete) polysaccharide iron complex 150 mg 150 mg PO DAILY 06/06/21 06/06/21 History iron capsule (Ferrex) potassium chloride 20 mEq See Rx Instructions .ROUTE .COMPLEX 06/06/21 06/06/21 History tablet,extended release(part/cryst) (Klor-Con M) rivaroxaban 20 mg tablet (Xarelto) 20 mg PO HS 06/06/21 06/06/21 History Patient History Medical History (Updated 06/09/21 @ 12:07 by Rudi Conde MD) Atrial fibrillation CKD (chronic kidney disease) stage 3, GFR 30-59 ml/min History of breast cancer History of ovarian cancer Hypertension Hypothyroidism Iron deficiency anemia Sepsis Surgical History (Updated 06/07/21 @ 21:03 by Ty Zepeda DMD) H/O mastectomy Hx of cholecystectomy S/P MICHEL-BSO Social History Smoking Status: Unknown if ever smoked Preferred Language: [employer] Required: No Beliefs That Will Affect Care: None Feels Safe at Home: Yes Assistive Devices: None Review of Systems Constitutional: no fever Eyes: no problem reported Ear, Nose, Mouth, Throat: no problem reported Respiratory: + dyspnea; no cough Cardiovascular: no chest pain and no edema Gastrointestinal: no abdominal pain, no nausea, no vomiting and no diarrhea/loose stools Genitourinary: no dysuria and no hematuria Musculoskeletal: no back pain Integumentary: no rash Neurologic: no confusion Physical Exam Constitutional: not in distress Eyes: PERRL, conjunctivae normal, anicteric sclerae ENMT: external ear and nose normal, oropharynx normal Neck: trachea midline, no thyromegaly Respiratory: Auscultation: + diminished lung sounds (at bases bilaterally) Cardiovascular: RRR, no murmur, no edema Gastrointestinal (Abdomen): normal bowel sounds, soft, nontender, no hepatosplenomegaly Skin: no rashes, warm and dry Neurologic: awake; not confused Results & Data ([place]) Vital Signs (Past 12 Hours) Vital Signs Temp Pulse Resp BP Pulse Ox 06/09/21 10:12 66 06/09/21 09:00 37.8 C H 64 12 125/56 L 96 06/09/21 08:00 37.6 C H 61 24 121/53 L 95 06/09/21 07:00 37.6 C H 65 35 H 95 Laboratory Results Laboratory Tests 06/06/21 06/09/21 06/09/21 11:41 04:40 04:40 WBC 11.11 H Hgb 9.8 L Hct 34.0 L Plt Count 272 Sodium 141 Potassium 4.5 D Chloride 107 Carbon Dioxide 32 BUN 20 H Creatinine 1.32 H Est GFR (Non-Af Amer) 40.8 Glucose 101 H Calcium 8.2 L Phosphorus 3.7 Magnesium 2.1 Total Bilirubin 0.3 Direct Bilirubin < 0.1 AST 41 H ALT 107 H Alkaline Phosphatase 118 H Albumin 2.2 L PEP Interpretation Urine Color Dark Yellow Urine Appearance Cloudy A Ur Specific Moose 1.020 Urine Protein 2+ H Urine Blood Negative Urine RBC (Auto) 0-4 06/09/21 04:40 WBC Hgb Hct Plt Count Sodium Potassium Chloride Carbon Dioxide BUN Creatinine Est GFR (Non-Af Amer) Glucose Calcium Phosphorus Magnesium Total Bilirubin Direct Bilirubin AST ALT Alkaline Phosphatase Albumin PEP Interpretation Pending Urine Color Urine Appearance Ur Specific Moose Urine Protein Urine Blood Urine RBC (Auto) Diagnostic Findings 06/08/21 Pleural fluid cytology - negative for malignant cells PG Care Time/CCT Total # of Minutes Spent Total Time Spent with Patient: Total time spent is greater than 50% in coordination of care (as documented) at patient's floor/unit and/or counseling patient: Coding Level of Care Code 68923 Inpt Consult Level 5 Diagnoses CKD (chronic kidney disease) stage 3, GFR 30-59 ml/min N18.30 Proteinuria R80.9
[2021-06-09] MEDS: ACETAMINOPHEN 500 MG TAB PO PRN (12:52)
--- NOTE | 2021-06-09 14:53 | Procedure Note ---
Procedure Note Date of Service June 09, 2021 Note Procedure: Ultrasound assisted thoracentesis from left pleural space Attending: Dr. NORMAN APC: Sami ABAD ([facility])- performed under direct supervision with campaign consultant Indication: Pleural effusion- diagnostic and therapeutic Anesthesia: x 5 ml Lidocaine 1% Consent was obtained by Dr. Norman Prior to procedure, chest x-ray films were reviewed by myself and demonstrated moderate left sided pleural effusion. A time-out was completed verifying correct patient, procedure, site, positioning, and equipment. Utilizing bedside ultrasound, chest wall was evaluated for location for optimal site for drainage placement. Location between the posterior ribs was marked on the skin using gentle pressure. The left posterior chest wall was prepped with chlorhexidine and draped in the typical sterile fashion. 5 mL of 1% Lidocaine without epinephrine was used to anesthetize the skin down to the dorsal surface of the rib and into the pleural space. Light wyatt return confirmed entry into the pleural space. Lidocaine was injected into the pleural space for increased anesthetization. Stab incision was made with 11 blade scalpel for passage of introducer and thoracentesis drain. The introducer needle on syringe was inserted in perpendicular fashion taking care to ride just above the dorsal surface rib. Entry into the pleural space was noted with return of light wyatt pleural fluid into the syringe while under gentle aspiration. The needle apparatus was held stable and the thoracentesis drainage catheter was advanced over the needle into the pleural space without resistance. The needle apparatus was subsequently removed. Cultures and cell count was obtained and sent for cytology. Culture bottles were also sent. Drainage completed of 1500ml of wyatt colored fluid without any coughing, pain, or complications from the patient immediately identifiable. Ultrasound was used post procedure to evaluate for lung slide and residual pleural effusion. Post procedure CXR ordered. Blood Loss: None Complications: None Post procedure Chest X-ray was ordered Coding
--- NOTE | 2021-06-09 14:54 | XRay Report ---
XR chest 1V portable HISTORY: 70 years-old Female S/P Thoracentesis follow-up study in a patient with left pleural effusi on. Status post thoracentesis. COMPARISON: Chest radiograph of same day at 6:49 AM TECHNIQUE: Portable AP view of the chest FINDINGS: The cardiac silhouette is enlarged. Left subclavian Jvvwop-t-Xfeo catheter distal tip terminates with in the expected location of the mid to inferior SVC. No pneumothorax.. Trace pleural effusions. Pulmo nary vascular congestion. Pigtail drainage catheter overlying the lateral right lung base is unchange d. There is decreased size of the left pleural effusion status post thoracentesis. No acute fracture. IMPRESSION: 1. Trace pleural effusions without pneumothorax. 2. Decreased size of the left pleural effusion status post thoracentesis. 3. Stable positioning of the right-sided pigtail drainage catheter. 4. Cardiomegaly with pulmonary vascular congestion. ACT 112: Negative or not required by law. The above report was generated using voice recognition software. It may contain grammatical, syntax o r spelling errors. Electronically signed by: Kevin Stephenson M.D. 06/09/2021 2:52 PM
[2021-06-09 15:01] LABS: Glucose Pleural Fluid 140 mg/dl
[2021-06-09 15:05] LABS: Creatinine Urine Random 80.8 mg/dl; Protein Creatinine Ratio Urine 0.4 (0-0.2); Total Protein Urine Random 29.1 mg/dl (0-11.9)
[2021-06-09 15:08] LABS: LDH Pleural Fluid 227 U/L; Total Protein Pleural Fluid 3.1 g/dl
[2021-06-09 15:26] LABS: Basophils, Fluid 0 %; Eosinophils, Fluid 0 %; Lymphocytes, Fluid 16 %; Mono,Macrophage,Mesothelial 0 %; Neutrophils, Fluid 84 %
--- NOTE | 2021-06-09 15:48 | Hospitalist Progress Note ---
Date of Service June 09, 2021 Assessment & Plan (1) Cardiac arrest due to respiratory disorder: Plan: Out of hospital cardiac arrest, etiology is uncertain, most likely due to respiratory failure secondary to bilateral large pleural effusions, possibly secondary to acute diastolic CHF ECG NSR, no ischemia. No ECHO done this admission. Was not hypotensive on admission, no evidence of sepsis Patient was successfully resuscitated. Pleural effusions drained bilaterally and extubated on 06/08 Remains on 4 L nasal cannula Plan for left and right heart cardiac cath tomorrow (2) Acute hypoxemic respiratory failure: Plan: Acute respiratory failure with hypoxia as well as hypercapnia secondary to large pleural effusions -likely secondary to heart failure, but could be side effect of Bosulif, also with proteinuria Initial VBG was 7.06/102 Initially intubated and ventilated With large pleural effusions bilaterally-now status post chest tube on the right which continues to drain, thoracentesis of 1.5 L on the left Was extubated on 06/08, continues on 4 L nasal cannula and doing well, no distress Continue diuresing for heart failure as below Wean off O2 as tolerated (3) Diastolic heart failure: Plan: Acute diastolic CHF suspected as above, versus pleural effusions from side effect of chemotherapy and proteinuria as above Recent echo as an outpatient showed preserved ejection fraction just prior to admission Echocardiogram was not repeated here Bilateral leg edema on exam which is now improving Appreciate cardiology consultation With rapid atrial fibrillation here as well which may be contributing Continue Bumex 2 mg IV twice daily Replace potassium as needed Cardiology recommends iron studies-show iron deficiency-we will replace with IV iron; recommends SPEP/UPEP-pending; recommends TSH-normal For atrial fibrillation-rhythm control with amiodarone and rate control with metoprolol -Plan for right and left heart cath tomorrow (4) Pleural effusion, bilateral: Plan: Large bilateral pleural effusions Right fluid is exudative by light's criteria, cytology negative for malignant cells Left pleural fluid chemistries pending As above, possibly secondary to bosutinib-holding this medication for now Of note, does have a history of breast cancer, ovarian cancer, and CML Pulmonology consultation appreciated (5) LORETTA (acute kidney injury): Plan: With acute kidney injury in the setting of most likely CKD stage III-now resolved Creatinine is now improved significantly down to 1.31 after diuresis Making plenty of urine Likely secondary to decreased renal perfusion in the setting of CHF renal Doppler negative for renal artery stenosis on the right but nondiagnostic on the left Follow BMP Renal dosing were appropriate (6) Lactic acidosis: Plan: Lactic acid is elevated on admission and now resolved Likely secondary to profound hypoxemia (7) Abnormal LFTs: Plan: AST and ALT and alkaline phosphatase elevated upon admission likely secondary to hepatic congestion from heart failure This could also be a side effect of her Bosulif for CML LFTs continue to trend downward with diuresis Follow LFTs (8) Atrial fibrillation: Plan: Has a long history of intermittent atrial fibrillation has had ablation in the past Was in rapid atrial fibrillation throughout the day on 06/08 but now remains in sinus rhythm Continue amiodarone but increased dose to 200 mg once daily as per cardiology Was on heparin drip but held for thoracentesis-okay to continue holding as she remains in sinus rhythm -Hold home Xarelto Replace potassium as needed Monitor on telemetry (9) CKD (chronic kidney disease) stage 3, GFR 30-59 ml/min: Plan: Noted in outpatient records as per cardiology -Avoid nephrotoxins -renally dose meds when appropriate -follow BMP (10) Hypokalemia: Plan: Now resolved with replacement -Was secondary to loop diuretics Follow BMP and magnesium (11) Iron deficiency anemia: Plan: Hemoglobin low at 9.8, MCV low at 77 She has long history of iron deficiency and takes oral iron supplements as an outpatient Follows with hematology/oncology for her CML as an outpatient Reports last EGD and colonoscopy were probably over 5 years ago Iron studies here show significant iron deficiency with ferritin of 20 and transferrin saturation of 10% Giving IV Venofer daily x3 doses-last dose 06/10 Follow CBC She will need follow-up with GI as an outpatient potentially (12) Elevated troponin: Plan: Troponin minimally elevated at 0.3 and then 0.7 after admission Could be secondary to CPR from cardiac contusion versus myocardial demand ischemia from severe hypoxemia No chest pain and no ischemic changes on EKG Oxycodone as needed for chest pain that is musculoskeletal (13) Submandibular abscess: Plan: noted on CT scan, but not notable on physical examination She recently had a bottom right molar removed about 10 days prior to admission and was on clindamycin With low-grade fevers here but doubtful that they are from this small abscess seen on CT oromaxillary facial surgeon has evaluated, no need for surgery for now Continue on unasyn for now (14) Hypertension: Plan: Holding home amlodipine Continue metoprolol at increased dose for atrial fibrillation (15) Hypothyroidism: Plan: TSH is normal Continue home levothyroxine (16) Proteinuria: Plan: With 2+ proteinuria and increased spot urine protein creatinine ratio 0.4 Appreciate nephrology consultation Renal ultrasound as above Thought to be secondary possibly to bosutinib Holding bosutinib for now Checking SPEP, UPEP Plan: DVT prophylaxis-Heparin drip on hold, SCDs Disposition-downgrade to PCU status, n.p.o. after midnight for cardiac catheterization tomorrow PT/OT consulted Admission and Anticipated Discharge Date Admission Date: June 06, 2021 Subjective Patient reports feeling better. She had 1.5 L drained off the left lung today with thoracentesis. Remains on 4 L nasal cannula but sats are excellent. She is out of bed to chair. Had some low-grade fevers overnight. She denies any pain at the site of where her tooth was pulled 10 days ago. She has some pain in the sternal region with taking deep breaths secondary to the CPR that she had. No abdominal pain or nausea. She is eating and drinking. I discussed her care with the job captain as well as the cardiology and nephrology. Telemetry-remains in normal sinus rhythm since yesterday Review of Systems Review of Systems: All systems reviewed & are unremarkable except as noted in HPI & below Physical Exam Constitutional: WD/WN, vitals as above Eyes: + anicteric sclerae Neck: trachea midline, no thyromegaly Respiratory: normal respiratory effort; no cough Auscultation: + diminished lung sounds (at bases bilat); no wheezes Cardiovascular: Rate/Rhythm: regular rate and regular rhythm Heart Sounds: no murmur Extremities: + edema (Trace edema legs and feet bilaterally) and + vascular access device (L SC CVC) Chest (Breasts): Chest: + abnormal inspection of chest (right chest tube) Gastrointestinal (Abdomen): normal bowel sounds, soft, nontender, no hepatosplenomegaly Musculoskeletal: Extremities: extremities normal to inspection; no cyanosis and no clubbing Skin: no rashes, warm and dry Neurologic: moves all extremities and awake; no focal motor deficits Psychiatric: A+Ox3, euthymic affect Lymphatic: no lymphedema Results & Data Results & Data ([facility]) Vital Signs (Past 12 Hours) Vital Signs Temp Pulse Pulse Resp BP BP Pulse Ox 06/09/21 14:55 36.6 C 58 L 20 110/15 L 95 06/09/21 13:06 37.0 C 62 20 112/62 96 06/09/21 11:00 64 32 H 128/65 97 06/09/21 10:35 37.1 C 65 20 128/65 97 06/09/21 10:12 66 06/09/21 10:00 66 21 141/67 H 96 06/09/21 09:00 37.8 C H 64 12 125/56 L 96 06/09/21 08:00 37.6 C H 61 24 121/53 L 95 06/09/21 07:00 37.6 C H 65 35 H 95 Laboratory Results 06/09/21 06/09/21 06/09/21 Range/Units Unknown Unknown 13:15 WBC (4.8-10.8) K/uL RBC (4.2-5.4) M/uL Hgb (12.0-16.0) g/dL Hct (37-47) % MCV (80-100) fL MCH (25-34) pg MCHC (32-36) g/dL RDW Std Deviation (36.4-46.3) fL RDW Coeff of Kvng (11.5-14.5) % Plt Count (130-400) K/uL MPV (7.4-10.4) fL Immature Gran % (Auto) % Neut % (Auto) % Lymph % (Auto) % [place] % (Auto) % Eos % (Auto) % Baso % (Auto) % Neut # (Auto) (1.4-6.5) K/uL Lymph # (Auto) (1.2-3.4) K/uL [place] # (Auto) (0.11-0.59) K/uL Eos # (Auto) (0-0.5) K/uL Baso # (Auto) (0-0.2) K/uL Immature Gran # (Auto) (0.00-0.02) K/uL APTT (21.0-31.0) Seconds PTT Ratio Sodium (136-145) mmol/L Potassium (3.5-5.1) mmol/L Chloride (98-107) mmol/L Carbon Dioxide (21-32) mmol/L Anion Gap (3-11) BUN (7-18) mg/dl Creatinine (0.6-1.2) mg/dl Est Cr Clr Drug Dosing ml/min Est GFR ( Amer) ml/min Est GFR (Non-Af Amer) ml/min BUN/Creatinine Ratio (10-20) Glucose (70-99) mg/dl POC Glucose (70-99) mg/dl Calcium (8.5-10.1) mg/dl Phosphorus (2.5-4.9) mg/dl Magnesium (1.8-2.4) mg/dl Total Bilirubin (0.2-1) mg/dl Direct Bilirubin (0-0.2) mg/dl AST (15-37) U/L ALT (12-78) Alkaline Phosphatase (45-117) U/L Total Protein (6.4-8.2) gm/dl Total Protein (PEP) Albumin (3.4-5.0) gm/dl Albumin (PEP) Baomq-2-Rwrvhdayo Qenpw-2-Ppekaikjt Qksx-0-Kensuirv Bvnr-4-Lnmojbze Gamma Globulins Monoclonal Peak 3 Ser Monoclonl Protein Ser Monoclonal Prot 2 PEP Interpretation Ur Random Creatinine 80.8 mg/dl U Random Total Protein 29.1 H Ur Creatinine mg/dL Protein/Creatinin Ratio 0.4 H Urine Albumin (%) U Zxlda-6-Vvinvxyc (%) U Ssoux-5-Fqfcclve (%) U Beta Globulin (%) U Gamma Globulin (%) U Abnormal Prot Band 1 U Abnormal Prot Band 2 U Abnormal Prot Band 3 Urine PEP Interpret Fluid Neutrophils % 84 % Fluid Lymphocytes % 16 % Fluid Eosinophils % 0 % Fluid Basophils % 0 % Fluid Meso/Macro/Pleasants % 0 % Fluid Comment Pleural Fluid Source LEFT LUNG Pleural Color TIFFANY Pleural Appearance HAZY Pleural pH 7.37 (7.3-7.4) Pleural WBC 5151 /uL Pleural RBC 22047 /uL Pleural Other Cells 0.0 % Pleural Total Protein 3.1 g/dl Pleural LDH 227 U/L Pleural Glucose 140 mg/dl 06/09/21 06/09/21 06/09/21 Range/Units 11:55 04:40 04:40 WBC (4.8-10.8) K/uL RBC (4.2-5.4) M/uL Hgb (12.0-16.0) g/dL Hct (37-47) % MCV (80-100) fL MCH (25-34) pg MCHC (32-36) g/dL RDW Std Deviation (36.4-46.3) fL RDW Coeff of Kvng (11.5-14.5) % Plt Count (130-400) K/uL MPV (7.4-10.4) fL Immature Gran % (Auto) % Neut % (Auto) % Lymph % (Auto) % Pleas[place] % (Auto) % Eos % (Auto) % Baso % (Auto) % Neut # (Auto) (1.4-6.5) K/uL Lymph # (Auto) (1.2-3.4) K/uL [place] # (Auto) (0.11-0.59) K/uL Eos # (Auto) (0-0.5) K/uL Baso # (Auto) (0-0.2) K/uL Immature Gran # (Auto) (0.00-0.02) K/uL APTT 56.1 H* (21.0-31.0) Seconds PTT Ratio 2.1 Sodium (136-145) mmol/L Potassium (3.5-5.1) mmol/L Chloride (98-107) mmol/L Carbon Dioxide (21-32) mmol/L Anion Gap (3-11) BUN (7-18) mg/dl Creatinine (0.6-1.2) mg/dl Est Cr Clr Drug Dosing ml/min Est GFR ( Amer) ml/min Est GFR (Non-Af Amer) ml/min BUN/Creatinine Ratio (10-20) Glucose (70-99) mg/dl POC Glucose 182 H (70-99) mg/dl Calcium (8.5-10.1) mg/dl Phosphorus (2.5-4.9) mg/dl Magnesium (1.8-2.4) mg/dl Total Bilirubin (0.2-1) mg/dl Direct Bilirubin (0-0.2) mg/dl AST (15-37) U/L ALT (12-78) Alkaline Phosphatase (45-117) U/L Total Protein (6.4-8.2) gm/dl Total Protein (PEP) Pending Albumin (3.4-5.0) gm/dl Albumin (PEP) Pending Zjsrm-9-Lhhqwkotk Pending Paior-5-Csvkamjoc Pending Qzfi-3-Wsfnticl Pending Vuew-0-Osesobwy Pending Gamma Globulins Pending Monoclonal Peak 3 Pending Ser Monoclonl Protein Pending Ser Monoclonal Prot 2 Pending PEP Interpretation Pending Ur Random Creatinine mg/dl U Random Total Protein Ur Creatinine mg/dL Protein/Creatinin Ratio Urine Albumin (%) U Eyuzs-8-Quawgyce (%) U Etouo-9-Gljtvotv (%) U Beta Globulin (%) U Gamma Globulin (%) U Abnormal Prot Band 1 U Abnormal Prot Band 2 U Abnormal Prot Band 3 Urine PEP Interpret Fluid Neutrophils % % Fluid Lymphocytes % % Fluid Eosinophils % % Fluid Basophils % % Fluid Meso/Macro/Pleasants % % Fluid Comment Pleural Fluid Source Pleural Color Pleural Appearance Pleural pH (7.3-7.4) Pleural WBC /uL Pleural RBC /uL Pleural Other Cells % Pleural Total Protein g/dl Pleural LDH U/L Pleural Glucose mg/dl 06/09/21 06/09/21 06/09/21 Range/Units 04:40 04:40 00:45 WBC 11.11 H (4.8-10.8) K/uL RBC 4.22 (4.2-5.4) M/uL Hgb 9.8 L (12.0-16.0) g/dL Hct 34.0 L (37-47) % MCV 80.6 (80-100) fL MCH 23.2 L (25-34) pg MCHC 28.8 L (32-36) g/dL RDW Std Deviation 50.9 H (36.4-46.3) fL RDW Coeff of Kvng 17.3 H (11.5-14.5) % Plt Count 272 (130-400) K/uL MPV 10.7 H (7.4-10.4) fL Immature Gran % (Auto) 0.2 % Neut % (Auto) 72.3 % Lymph % (Auto) 11.8 % Pleasants % (Auto) 14.5 % Eos % (Auto) 1.0 % Baso % (Auto) 0.2 % Neut # (Auto) 8.04 H (1.4-6.5) K/uL Lymph # (Auto) 1.31 (1.2-3.4) K/uL [place] # (Auto) 1.61 H (0.11-0.59) K/uL Eos # (Auto) 0.11 (0-0.5) K/uL Baso # (Auto) 0.02 (0-0.2) K/uL Immature Gran # (Auto) 0.02 (0.00-0.02) K/uL APTT 59.4 H* (21.0-31.0) Seconds PTT Ratio 2.3 Sodium 141 (136-145) mmol/L Potassium 4.5 D (3.5-5.1) mmol/L Chloride 107 (98-107) mmol/L Carbon Dioxide 32 (21-32) mmol/L Anion Gap 2.0 L (3-11) BUN 20 H (7-18) mg/dl Creatinine 1.32 H (0.6-1.2) mg/dl Est Cr Clr Drug Dosing 51.8 ml/min Est GFR ( Amer) 47.3 ml/min Est GFR (Non-Af Amer) 40.8 ml/min BUN/Creatinine Ratio 15.5 (10-20) Glucose 101 H (70-99) mg/dl POC Glucose (70-99) mg/dl Calcium 8.2 L (8.5-10.1) mg/dl Phosphorus 3.7 (2.5-4.9) mg/dl Magnesium 2.1 (1.8-2.4) mg/dl Total Bilirubin 0.3 (0.2-1) mg/dl Direct Bilirubin < 0.1 (0-0.2) mg/dl AST 41 H (15-37) U/L ALT 107 H (12-78) Alkaline Phosphatase 118 H (45-117) U/L Total Protein 5.7 L (6.4-8.2) gm/dl Total Protein (PEP) Albumin 2.2 L (3.4-5.0) gm/dl Albumin (PEP) Iqurv-8-Vlyxvwibp Kppjk-4-Hefrewlgl Aufs-3-Iomwyaym Qbui-8-Dsffjkaj Gamma Globulins Monoclonal Peak 3 Ser Monoclonl Protein Ser Monoclonal Prot 2 PEP Interpretation Ur Random Creatinine mg/dl U Random Total Protein Ur Creatinine mg/dL Protein/Creatinin Ratio Urine Albumin (%) U Nayok-1-Uzayqzlz (%) U Doclw-0-Hkeybirk (%) U Beta Globulin (%) U Gamma Globulin (%) U Abnormal Prot Band 1 U Abnormal Prot Band 2 U Abnormal Prot Band 3 Urine PEP Interpret Fluid Neutrophils % % Fluid Lymphocytes % % Fluid Eosinophils % % Fluid Basophils % % Fluid Meso/Macro/Pleasants % % Fluid Comment Pleural Fluid Source Pleural Color Pleural Appearance Pleural pH (7.3-7.4) Pleural WBC /uL Pleural RBC /uL Pleural Other Cells % Pleural Total Protein g/dl Pleural LDH U/L Pleural Glucose mg/dl 06/08/21 Range/Units 12:30 WBC (4.8-10.8) K/uL RBC (4.2-5.4) M/uL Hgb (12.0-16.0) g/dL Hct (37-47) % MCV (80-100) fL MCH (25-34) pg MCHC (32-36) g/dL RDW Std Deviation (36.4-46.3) fL RDW Coeff of Kvng (11.5-14.5) % Plt Count (130-400) K/uL MPV (7.4-10.4) fL Immature Gran % (Auto) % Neut % (Auto) % Lymph % (Auto) % [place] % (Auto) % Eos % (Auto) % Baso % (Auto) % Neut # (Auto) (1.4-6.5) K/uL Lymph # (Auto) (1.2-3.4) K/uL [place] # (Auto) (0.11-0.59) K/uL Eos # (Auto) (0-0.5) K/uL Baso # (Auto) (0-0.2) K/uL Immature Gran # (Auto) (0.00-0.02) K/uL APTT (21.0-31.0) Seconds PTT Ratio Sodium (136-145) mmol/L Potassium (3.5-5.1) mmol/L Chloride (98-107) mmol/L Carbon Dioxide (21-32) mmol/L Anion Gap (3-11) BUN (7-18) mg/dl Creatinine (0.6-1.2) mg/dl Est Cr Clr Drug Dosing ml/min Est GFR ( Amer) ml/min Est GFR (Non-Af Amer) ml/min BUN/Creatinine Ratio (10-20) Glucose (70-99) mg/dl POC Glucose (70-99) mg/dl Calcium (8.5-10.1) mg/dl Phosphorus (2.5-4.9) mg/dl Magnesium (1.8-2.4) mg/dl Total Bilirubin (0.2-1) mg/dl Direct Bilirubin (0-0.2) mg/dl AST (15-37) U/L ALT (12-78) Alkaline Phosphatase (45-117) U/L Total Protein (6.4-8.2) gm/dl Total Protein (PEP) Albumin (3.4-5.0) gm/dl Albumin (PEP) Peyhl-0-Dzjprszww Satbc-6-Fercmjmqb Gesz-1-Utfaewbu Wqbj-3-Eebiguvh Gamma Globulins Monoclonal Peak 3 Ser Monoclonl Protein Ser Monoclonal Prot 2 PEP Interpretation Ur Random Creatinine mg/dl U Random Total Protein Pending Ur Creatinine mg/dL Pending Protein/Creatinin Ratio Pending Urine Albumin (%) Pending U Dzmij-5-Pnulytki (%) Pending U Rngxo-5-Iblngjus (%) Pending U Beta Globulin (%) Pending U Gamma Globulin (%) Pending U Abnormal Prot Band 1 Pending U Abnormal Prot Band 2 Pending U Abnormal Prot Band 3 Pending Urine PEP Interpret Pending Fluid Neutrophils % % Fluid Lymphocytes % % Fluid Eosinophils % % Fluid Basophils % % Fluid Meso/Macro/Pleasants % % Fluid Comment Pleural Fluid Source Pleural Color Pleural Appearance Pleural pH (7.3-7.4) Pleural WBC /uL Pleural RBC /uL Pleural Other Cells % Pleural Total Protein g/dl Pleural LDH U/L Pleural Glucose mg/dl Diagnostic Findings Renal Artery Duplex 06/09/21 00:00 US duplex renal artery HISTORY: 70 years-old Female [place] screening study in a patient with possible renal artery stenosis COMPARISON: CT abdomen pelvis 06/06/2021 TECHNIQUE: Multiple real-time sonographic images of the and renal vascular structures were obtained assessing grayscale appearance, color and spectral flow FINDINGS: Study is limited secondary to patient condition. There is normal plug flow within the proximal abdominal aorta with peak systolic velocity 140 cm/s. The right kidney measures 11.4 cm in length. Patent right renal vein. No elevated peak systolic loss is identified within the right renal artery. Peak systolic velocities measure up to 142 cm/s within the proximal aspect of the right renal artery. Resistive index measures up to 0.8. The left kidney measures 12.2 cm in length and is partially obscured by bowel gas. The left renal artery and vein are not diagnostically visualized. IMPRESSION: Limited exam as above. No sonographic evidence of right renal artery stenosis. The left renal artery is obscured by bowel gas. ACT 112: Negative or not required by law. The above report was generated using voice recognition software. It may contain grammatical, syntax or spelling errors. Electronically signed by: Kevin Stephenson M.D. 06/09/2021 8:10 AM Chest X-Ray 06/09/21 07:00 XR chest 1V portable CLINICAL HISTORY: resp failure TECHNIQUE: Single frontal radiograph of the chest was obtained. Comparison: Comparison is made to chest one view 08/09/2020 FINDINGS: Interval removal of endotracheal and enteric tubes. Left subclavian venous catheter and right chest tube are unchanged. The cardiomediastinal silhouette is obscured. Left airspace opacity is seen, the left lung is better aerated than on the prior exam. Moderate left pleural effusion, decreased from prior exam. IMPRESSION: No acute chest disease. ACT 112: Negative or not required by law. Electronically signed by: Juliano Foley M.D. 06/09/2021 8:52 AM Chest X-Ray 06/09/21 14:31 XR chest 1V portable HISTORY: 70 years-old Female S/P Thoracentesis follow-up study in a patient with left pleural effusion. Status post thoracentesis. COMPARISON: Chest radiograph of same day at 6:49 AM TECHNIQUE: Portable AP view of the chest FINDINGS: The cardiac silhouette is enlarged. Left subclavian Mghlss-n-Urht catheter distal tip terminates within the expected location of the mid to inferior SVC. No pneumothorax.. Trace pleural effusions. Pulmonary vascular congestion. Pigtail drainage catheter overlying the lateral right lung base is unchanged. There is decreased size of the left pleural effusion status post thoracentesis. No acute fracture. IMPRESSION: 1. Trace pleural effusions without pneumothorax. 2. Decreased size of the left pleural effusion status post thoracentesis. 3. Stable positioning of the right-sided pigtail drainage catheter. 4. Cardiomegaly with pulmonary vascular congestion. ACT 112: Negative or not required by law. The above report was generated using voice recognition software. It may contain grammatical, syntax or spelling errors. Electronically signed by: Kevin Stephenson M.D. 06/09/2021 2:52 PM PG Care Time/CCT Total # of Minutes Spent Total Time Spent with Patient: Total time spent is greater than 50% in coordination of care (as documented) at patient's floor/unit and/or counseling patient: Coding Level of Care Code 52037 Subseq Hosp Care Lvl 3 Diagnoses Cardiac arrest due to respiratory disorder J98.9; I46.8 Acute hypoxemic respiratory failure J96.01 Diastolic heart failure I50.30 Pleural effusion, bilateral J90 Submandibular abscess K12.2 LORETTA (acute kidney injury) N17.9 Lactic acidosis E87.2 Abnormal LFTs R79.89 Atrial fibrillation I48.91 CKD (chronic kidney disease) stage 3, GFR 30-59 ml/min N18.30 Hypokalemia E87.6 Iron deficiency anemia D50.9 Elevated troponin R77.8 Hypertension I10 Hypothyroidism E03.9 Proteinuria R80.9
[2021-06-09 16:15] LABS: Appearance Pleural Fluid HAZY; Color Pleural Fluid AMBER; RBC Pleural Fluid (A) 11000 /uL; Source Pleural Fluid LEFT LUNG; WBC Pleural Fluid (A) 5151 /uL
[2021-06-09] MEDS ORDERED: Nursing to Pharmacy Communication SCH (17:30)
[2021-06-09] MEDS: SENNA 8.6 MG TAB PO SCH (21:46)
[2021-06-10] MEDS: METOPROLOL TARTRATE 25 MG TAB PO SCH ×5 (01:36→23:56)
[2021-06-10] MEDS: HEPARIN SODIUM/DEXTROSE 25,000 UNITS/500 ML BAG IV SCH ×2 (04:52→06:22)
[2021-06-10] MEDS: AMPICILLIN/SULBACTAM SOD 3,000 MG in 0.9 % SODIUM CHLORIDE 100 ML IV SCH ×4 (04:52→22:07)
[2021-06-10 05:45] LABS: Basophils # (auto) 0.02 K/uL (0-0.2); Basophils % (auto) 0.2 %; Eosinophils # (auto) 0.25 K/uL (0-0.5); Eosinophils % (auto) 2.7 %; Hematocrit (blood only) 35.8 % (37-47); Hemoglobin 9.9 g/dL (12.0-16.0); Immature Granulocytes # (auto) 0.03 K/uL (0.00-0.02); Immature Granulocytes % (auto) 0.3 %; Lymphocytes # (auto) 0.92 K/uL (1.2-3.4); Lymphocytes % (auto) 9.8 %; Mean Corpuscular Hgb Conc 27.7 g/dL (32-36); Mean Corpuscular Volume 83.1 fL (80-100); Mean Platelet Volume 9.8 fL (7.4-10.4); Monocytes # (auto) 1.22 K/uL (0.11-0.59); Neutrophils # (auto) 6.98 K/uL (1.4-6.5); Platelet Count 249 K/uL (130-400); RDW Coefficient of Variation 17.1 % (11.5-14.5); RDW Standard Deviation 51.5 fL (36.4-46.3); Red Blood Count 4.31 M/uL (4.2-5.4); White Blood Count 9.42 K/uL (4.8-10.8)
[2021-06-10 06:02] LABS: Albumin Level 2.2 gm/dl (3.4-5.0); BUN Creatinine Ratio 15.9 (10-20); Calcium 8.6 mg/dl (8.5-10.1); Creatinine Clr Calc Pharmacy 60.6 ml/min; Est GFR (African American) 57.6 ml/min; Est GFR (Non-African American) 49.7 ml/min; Potassium 4.7 mmol/L (3.5-5.1)
[2021-06-10 06:20] LABS: Albumin Globulin Ratio 0.6 (0.9-2); Bilirubin,Total 0.3 mg/dl (0.2-1); Globulin 3.9 gm/dl (2.5-4.0); Total Protein 6.1 gm/dl (6.4-8.2)
[2021-06-10] MEDS: LEVOTHYROXINE SODIUM 75 MCG TABLET PO SCH (06:24)
--- NOTE | 2021-06-10 07:25 | XRay Report ---
XR chest 1V portable HISTORY: 70 years-old Female resp failure acute respiratory failure COMPARISON: Chest radiograph 05/30/2021 TECHNIQUE: Portable AP view of the chest FINDINGS: Interval removal of the left subclavian central venous catheter. The cardiac silhouette is enlarged. Calcified plaque of the thoracic aorta. Pulmonary vascular congestion with progressive interstitial c oarsening. Layering pleural effusions with bibasilar consolidation has progressed. Stable positioning of the right basilar pigtail catheter. No pneumothorax. No acute fracture. Surgical clip of the left axilla. IMPRESSION: 1. Cardiomegaly with pulmonary vascular congestion and mildly progressed interstitial coarsening sugg estive of pulmonary edema. An interstitial pneumonitis could appear similarly. 2. Increased size of the layering pleural effusions with progressive bibasilar consolidation. 3. Unchanged positioning of the right basilar pigtail drainage catheter. ACT 112: Negative or not required by law. The above report was generated using voice recognition software. It may contain grammatical, syntax o r spelling errors. Electronically signed by: Kevin Stephenson M.D. 06/10/2021 7:24 AM
[2021-06-10] MEDS: AMIODARONE 200 MG TAB PO SCH (07:51)
[2021-06-10] MEDS: IRON SUCROSE 200 MG in 0.9 % SODIUM CHLORIDE 100 ML IV SCH (07:53)
[2021-06-10] MEDS: BUMETANIDE 2 MG in SYRINGE 0 ML IV SCH ×2 (07:54→16:25)
--- NOTE | 2021-06-10 07:57 | Procedure Note ---
Procedure Note Date of Service June 10, 2021 Note Procedure: Removal of 14 [place] pigtail catheter in the right chest Proceduralist Dr. Norman Indication, minimal output from chest tube. Anesthesia none Patient was placed in an upright position. The skater securing device was taken down. The retention suture was clipped. The locking mechanism for the pigtail catheter was fully released. On full exhalation, the catheter was quickly pulled. It was observed to be intact. A Vaseline impregnated gauze was applied over the pleurotomy site and secured with a Tegaderm. The patient tolerated the procedure well without complication Coding CPT Codes Pulmonary/Thoracic - Pulmonary and Thoracic: 60891 Remove lung catheter ([id number]) [facility] [place] [place]odes (Charges) Pulmonary/Thoracic Procedure 1: Pulmonary and Thoracic: 72073 Remove lung catheter
--- NOTE | 2021-06-10 08:03 | Pulmonology Progress Note ---
Date of Service June 10, 2021 Assessment & Plan (1) Cardiac arrest due to respiratory disorder: (2) Pulmonary edema: Chronicity: acute Qualified Code(s): J81.0 - Acute pulmonary edema (3) Pleural effusion, bilateral: (4) Acute hypoxemic respiratory failure: (5) Hypercapnic respiratory failure: (6) Diastolic heart failure: (7) Submandibular abscess: (8) LORETTA (acute kidney injury): (9) Lactic acidosis: (10) Abnormal LFTs: Plan: Impression: 70-year-old female with known diastolic heart failure and recent echocardiogram showing preserved ejection fraction with no significant valvular abnormalities admitted with lethargy, hypoxemic hypercarbic respiratory failure, bilateral pleural effusions, and a submandibular abscess as well as acute kidney injury, lactic acidosis, abnormal liver function tests, and elevated troponin. She has been extubated and is doing well on nasal cannula. Pleural fluid studies demonstrated borderline exudative with negative cytology on the right and cytology on the left pending. Recommendations: 1. Pleural effusion: Borderline exudative by light's criteria. Unclear if this could be related to the patient's bosutinib. Await cytology from the fluid on the left sent yesterday. The drain on the right is had minimal output and was discontinued this morning. Continue diuretics and long-term management per cardiology and nephrology. 2. Hypoxemic and hypercarbic respiratory failure: Currently resolved. Suspect the hypercarbia may have been related to the pleural effusions causing increased work of breathing. Nevertheless would recommend outpatient PFTs and overnight attended polysomnogram. Patient is not appropriate for home sleep study. Pulmonary will sign off at this point time. If the effusions reaccumulate, the patient may benefit from video-assisted thoracoscopic evaluation with pleural biopsies. This would necessitate evaluation at [place]. Admission and Anticipated Discharge Date Admission Date: June 06, 2021 Subjective Patient seen and examined. She feels well this morning. She not having any respiratory issues. She underwent diagnostic therapeutic thoracentesis on the left yesterday with removal of about 1.5 L. The chest tube output on the right is significantly decreased. She was seen by nephrology. She is pending cardiac catheterization later today. 24-hour urine is ongoing. She is afebrile. Review of Systems Review of Systems: All systems reviewed & are unremarkable except as noted in Subjective Physical Exam Neck: trachea midline, no thyromegaly Respiratory: Clear to auscultation anteriorly. No wheezing. No significant crackles Cardiovascular: RRR, no murmur, no edema Gastrointestinal (Abdomen): normal bowel sounds, soft, nontender, no hepatosplenomegaly Musculoskeletal: Extremities: extremities normal to inspection Lymphatic: no cervical lymphadenopathy Results & Data Results & Data ([facility]) Vital Signs (Past 12 Hours) Vital Signs Temp Pulse Resp BP Pulse Ox 06/10/21 04:00 37 C 68 20 127/58 L 98 06/10/21 03:00 64 28 H 130/51 L 99 06/10/21 02:00 67 28 H 139/53 L 100 06/10/21 01:00 63 29 H 98 06/10/21 00:00 63 31 H 124/60 99 06/09/21 23:00 61 25 H 99 06/09/21 22:00 91 06/09/21 21:00 63 28 H 97 06/09/21 20:00 36.8 C 65 34 H 120/59 L 96 Laboratory Results 06/10/21 05:09 06/10/21 05:09 Pleural fluid cytology on the right is negative. Pleural fluid studies on the left Differential 84% neutrophils 16% lymphocytes pH 7.37 Total protein 3.1 LDH 227 Glucose 140 Gram stain and culture negative Diagnostic Findings Post thoracentesis chest x-ray independently reviewed. No pneumothorax. Film this morning demonstrates the right-sided chest tube to be in good position. There is some slight blunting of the costophrenic angles bilaterally. PG Care Time/CCT Total # of Minutes Spent Total Time Spent with Patient: Total time spent is greater than 50% in coordination of care (as documented) at patient's floor/unit and/or counseling patient: Coding Level of Care Code 77888 Subseq Hosp Care Lvl 3 Diagnoses Cardiac arrest due to respiratory disorder J98.9; I46.8 Pulmonary edema J81.0 Chronicity: acute Pleural effusion, bilateral J90 Acute hypoxemic respiratory failure J96.01 Hypercapnic respiratory failure J96.92 Diastolic heart failure I50.30 Submandibular abscess K12.2 LORETTA (acute kidney injury) N17.9 Lactic acidosis E87.2 Abnormal LFTs R79.89
--- NOTE | 2021-06-10 09:13 | Cardiology Progress Note ---
Date of Service June 10, 2021 Assessment & Plan Admission and Anticipated Discharge Date Admission Date: June 06, 2021 Subjective Patient is feeling better. Her shortness of breath is improving. She denies any palpitations or fluttering. She is had no recurrent atrial fibrillation since her bronchoscopy. She does note some mild lightheadedness that is intermittent. She notes cognitively that she is more alert and awake. She has any chest tightness or chest pressure. She notes before coming into the hospital it was predominantly shortness of breath with activity that was bothering her she did not have any chest tightness or chest pressure. In reviewing with her in June 2018 she thinks she had Covid at the time she lost taste and smell but testing was inadequate. 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 She notes initially the shortness of breath improved post Covid and then continued to worsen and has basically persisted that way for the last 20 months or so. She notes previous to this she was active she could do evening walks and now many days she is short of breath just walking in from the parking lot to a store. Results & Data ([facility]) Vital Signs (Past 12 Hours) Vital Signs Temp Pulse Resp BP Pulse Ox 06/10/21 04:00 37 C 68 20 127/58 L 98 06/10/21 03:00 64 28 H 130/51 L 99 06/10/21 02:00 67 28 H 139/53 L 100 06/10/21 01:00 63 29 H 98 06/10/21 00:00 63 31 H 124/60 99 06/09/21 23:00 61 25 H 99 06/09/21 22:00 91 she is awake alert and oriented x3 she looks significantly better HEENT 2+ carotid upstrokes no evidence of carotid bruits Lungs: Globally decreased breath sounds in the bases bilaterally Heart: Regular rate and rhythm; 2 out of 6 systolic ejection murmur at the upper left sternal border Abdomen: Soft nontender distended positive bowel sounds obese Extremities: Mild to moderate pitting edema to her knees bilaterally IMPRESSIONS: 1. Acute respiratory failure secondary to acute on chronic diastolic heart failure 2. Unclear etiology for her diastolic heart failure 3. Echocardiogram 04/15/2021 normal biventricular size and function without significant valvular heart disease and a small pericardial effusion 4. Status post ablation for atrial fibrillation and atrial flutter June 2020 5. Chronic kidney disease stage III with a baseline creatinine of 1.5 with acute kidney injury and a peak creatinine of 2.5 this admission 6. 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 History of amiodarone and anticoagulation for her atrial fibrillation 8. History of multiple cardioversions 9. Persistent shortness of breath since her pulmonary vein ablation 10. History of welts and hives secondary to to diltiazem 11 history of breast cancer status post mastectomy without the need for radiation therapy or chemotherapy 12. Hypothyroidism 13. History of ovarian cancer 14. Significant proteinuria possibly related to her use of Bosutinib 15. Status post bilateral thoracenteses this admission In discussion with Dr. Conde today at the bedside he is feeling that her CML veg F inhibitor is likely the cause for her proteinuria and low albumin. He has seen this in patients who are on veg F inhibitors for renal cell carcinoma where they end up with a capillary leak syndrome. This would explain why she continues to have worsening pleural effusions post thoracentesis even though she is diuresing nicely on high-dose Bumex. She is scheduled undergo cardiac catheterization today. I do not think she is going to have obstructive coronary disease but more importantly it will allow us to assess her right and left-sided pressures and to determine how we need to best adjust her diuretics. As for causes of diastolic heart failure, her thyroid studies are normal and her iron studies were actually low. We're still awaiting her serum protein electrophoresis and urine protein electrophoresis. She will need IV fluids post catheterization just to reduce the risk of acute kidney injury. I would avoid prehydrating her as this will falsely elevate her intracardiac pressures. Post procedure she can receive 500 cc of saline at 100 cc an hour for 5 hours. She remains in sinus rhythm with amiodarone. If there is no plans for additional procedures she can be switched over to apixaban that she was on as an outpatient. Her oncologist is at [facility] and then will need to be a conversation with regards to reducing her medication for her CML or consideration of using a different medication if at all possible. All of her questions were answered in detail.
--- NOTE | 2021-06-10 09:22 | Nephrology Progress Note ---
Date of Service June 10, 2021 Assessment & Plan (1) CKD (chronic kidney disease) stage 3, GFR 30-59 ml/min: Plan: * Baseline Cr 1.5 * 06/16 urine sediment negative for blood, positive for hyaline casts * 06/16 UPCR 0.4 * 06/16 renal artery duplex: R 11.4cm, L 12.2cm. No R [place], L RA poorly visualized * Renal impairment is likely on the basis of microvascular disease * Monitor PRP * Recommend limiting IV contrast during cardiac cath and providing pre/post hydration to lessen the risk of MARZENA (2) Proteinuria: Plan: * Proteinuria likely on the basis of TKI/VEGF inhibitor. Agree w/ holding Bosutinib * Urinalysis revealed 2+ protein on a concentrated sample * Awaiting 24 hour urine results. UPCR 0.4 * Await results of UIEP study * Recommend consultation w/ Oncology to determine whether patient will be able to resume Bosutinib (lower dose?) or need to transition to alternative therapy Admission and Anticipated Discharge Date Admission Date: June 06, 2021 Subjective Ms. Loera was evaluated in her hospital room this morning. She denied angina and reports that her breathing is subjectively improved. She is awaiting cardiac catheterization Review of Systems Constitutional: no fever Eyes: no problem reported Ear, Nose, Mouth, Throat: no problem reported Respiratory: + dyspnea; no cough Cardiovascular: no chest pain and no edema Gastrointestinal: no abdominal pain, no nausea, no vomiting and no diarrhea/loose stools Genitourinary: no dysuria and no hematuria Musculoskeletal: no back pain Integumentary: no rash Neurologic: no confusion Physical Exam Constitutional: not in distress Eyes: PERRL, conjunctivae normal, anicteric sclerae ENMT: external ear and nose normal, oropharynx normal Neck: trachea midline, no thyromegaly Respiratory: Auscultation: + diminished lung sounds (at bases bilaterally) Cardiovascular: RRR, no murmur, no edema Gastrointestinal (Abdomen): normal bowel sounds, soft, nontender, no hepatosplenomegaly Skin: no rashes, warm and dry Neurologic: awake; not confused Results & Data ([facility]) Vital Signs (Past 12 Hours) Vital Signs Temp Pulse Resp BP Pulse Ox 06/10/21 04:00 37 C 68 20 127/58 L 98 06/10/21 03:00 64 28 H 130/51 L 99 06/10/21 02:00 67 28 H 139/53 L 100 06/10/21 01:00 63 29 H 98 06/10/21 00:00 63 31 H 124/60 99 06/09/21 23:00 61 25 H 99 06/09/21 22:00 91 Laboratory Results Laboratory Tests 06/10/21 06/10/21 05:09 05:09 WBC 9.42 Hgb 9.9 L Hct 35.8 L Plt Count 249 Sodium 138 Potassium 4.7 Chloride 102 Carbon Dioxide 35 H BUN 18 Creatinine 1.12 Glucose 102 H Calcium 8.6 Total Bilirubin 0.3 AST 22 ALT 77 Alkaline Phosphatase 114 PG Care Time/CCT Total # of Minutes Spent Total Time Spent with Patient: Total time spent is greater than 50% in coordination of care (as documented) at patient's floor/unit and/or counseling patient: Coding Level of Care Code 12478 Subseq Hosp Care Lvl 3 Diagnoses CKD (chronic kidney disease) stage 3, GFR 30-59 ml/min N18.30 Proteinuria R80.9
[2021-06-10] MEDS ORDERED: HEPARIN (PORCINE) 1000 UNIT/ML 10 ML (CATH LAB USE ONLY) ONE (10:38)
[2021-06-10] MEDS ORDERED: NITROGLYCERIN/D5W 100MCG/ML 20ML SYR ONE (10:39)
[2021-06-10] MEDS ORDERED: fentaNYL citrate 100 MCG/2 ML VIAL ONE (10:39)
[2021-06-10] MEDS ORDERED: MIDAZOLAM HCL 1 MG/ML 2ML VIAL ONE (10:39)
[2021-06-10] MEDS ORDERED: niCARdipine HCL INJ 2.5 MG/ML 10 ML AMP ONE (10:39)
--- NOTE | 2021-06-10 10:39 | Pre Anesthesia Assessment ---
Date of Service June 10, 2021 Pre Sedation Assessment Vital Signs Temp Pulse Pulse Resp BP BP Pulse Ox 06/10/21 10:15 68 21 127/65 95 06/10/21 04:00 98.6 F 68 20 127/58 L 98 06/10/21 03:00 64 28 H 130/51 L 99 06/10/21 02:00 67 28 H 139/53 L 100 06/10/21 01:00 63 29 H 98 06/10/21 00:00 63 31 H 124/60 99 06/09/21 23:00 61 25 H 99 06/09/21 22:00 91 06/09/21 21:00 63 28 H 97 06/09/21 20:00 98.2 F 65 34 H 120/59 L 96 06/09/21 19:00 67 27 H 96 06/09/21 18:00 66 20 148/78 H 98 06/09/21 17:00 63 24 139/64 98 06/09/21 16:00 59 L 26 H 126/62 96 06/09/21 15:00 58 L 19 89/57 L 95 06/09/21 14:55 97.9 F 58 L 20 110/15 L 95 06/09/21 14:00 64 30 H 140/61 94 06/09/21 13:06 98.6 F 62 20 112/62 96 06/09/21 13:01 74 18 88/66 L 91 06/09/21 12:00 71 18 92 06/09/21 11:00 64 32 H 128/65 97 Cardiovascular RRR, no murmur, no edema Respiratory normal respiratory effort, lungs clear to auscultation Pre-Sedation Airway Assessment Smoking Status: Unknown if ever smoked Hx Sleep Apnea: No Hx Difficult Intubation: No Short, Thick Neck: No Thyromental Distance: > or= 3.5 Finger Breadths Oral Cavity: + WNL Mallampati Class: II ASA: ASA2 NPO Status Date of Last Intake of Fluids: 06/10/21 Time of Last Intake of Fluids: 06:30 Last Oral Intake of Fluids Comment: sips of water with meds Date of Last Intake of Solid Food: 06/09/21 Time of Last Intake of Solid Foods: 19:00 Procedure Planning Contraindications for Sedation: none Current Medications Reviewed: Yes Notes The planned sedation has been discussed with the patient. Informed Consent was obtained. I have identified the patient, determined the appropriateness of sedation and have assessed the patient immediately prior to the procedure. All medicine(s) and interventions are by my order.
--- NOTE | 2021-06-10 10:50 | Cardiology Consultation ---
Date of Consultation June 10, 2021 Assessment & Plan (1) Diastolic heart failure: Patient being followed by [facility] cardiology. Discussed case with Dr. Gordon's team. Agree with proceeding with left and right heart catheterization to rule out ischemic heart disease and further assess filling pressures. Plan to perform procedure via left radial, left antecubital vein. Procedure discussed in detail with patient and she is willing to proceed. History of Present Illness Attending Physician: Taya Diana MD History of Present Illness Mrs. Loera is a very pleasant 70-year-old woman admitted currently after out of hospital cardiac arrest with acute hypoxic respiratory failure thought secondary to acute diastolic heart failure. Seen today prior to diagnostic left and right heart catheterization. Other medical issues include stage III chronic kidney disease, paroxysmal atrial fibrillation post prior ablation/PVI, history of CML on chronic bosutinib, remote breast cancer post mastectomy.Other active issues include questionable submandibular abscess, anemia, proteinuria. Patient now extubated, breathing comfortably on nasal cannula. Responding to high-dose IV Bumex, negative more than 3 L since admission. Having issues with recurrent pleural effusions. Allergies Allergy/AdvReac Type Severity Reaction Status Date / Time amoxicillin Allergy Unknown Unverified 06/06/21 12:18 Home Medications Medication Instructions Recorded Confirmed Type acetaminophen 325 mg tablet 325 mg PO QID PRN 06/06/21 06/06/21 History amiodarone 100 mg tablet 100 mg PO DAILY 06/06/21 06/06/21 History amlodipine 10 mg tablet 10 mg PO DAILY 06/06/21 06/06/21 History bosutinib 400 mg tablet (Bosulif) 400 mg PO DAILY 06/06/21 06/06/21 History clindamycin HCl 300 mg capsule 300 mg PO TID 06/06/21 06/06/21 History furosemide 40 mg tablet 40 mg PO BID 06/06/21 06/06/21 History levothyroxine 75 mcg tablet 75 mcg PO DAILY 06/06/21 06/06/21 History metoprolol tartrate 25 mg tablet 25 mg PO BID 06/06/21 06/06/21 History vcxnqjlc-vrtrikv-mujz-iron 18 1 tab PO DAILY 06/06/21 06/06/21 History mg-FA 400 mcg-vit K 25 mcg tablet (One-A-Day Women's Complete) polysaccharide iron complex 150 mg 150 mg PO DAILY 06/06/21 06/06/21 History iron capsule (Ferrex) potassium chloride 20 mEq See Rx Instructions .ROUTE .COMPLEX 06/06/21 06/06/21 History tablet,extended release(part/cryst) (Klor-Con M) rivaroxaban 20 mg tablet (Xarelto) 20 mg PO HS 06/06/21 06/06/21 History Patient History Medical History (Updated 06/09/21 @ 12:07 by Rudi Conde MD) Atrial fibrillation CKD (chronic kidney disease) stage 3, GFR 30-59 ml/min History of breast cancer History of ovarian cancer Hypertension Hypothyroidism Iron deficiency anemia Sepsis Surgical History (Updated 06/07/21 @ 21:03 by Ty Zepeda DMD) H/O mastectomy Hx of cholecystectomy S/P MICHEL-BSO Social History Smoking Status: Unknown if ever smoked Hx Substance Use: No Preferred Language: German General Ophthalmologist Required: No Beliefs That Will Affect Care: None Feels Safe at Home: Yes Assistive Devices: None Review of Systems Review of Systems: All systems reviewed & are unremarkable except as noted in HPI & below Physical Exam Physical Exam: General: Comfortable HEENT: Sclerae anicteric, nasal cannula in place Lungs: Clear to auscultation anteriorly Cardiac: Regular rate and rhythm, no murmurs. Vascular: 2+ radial bilaterally Abdomen: Soft, nontender Extremities: Well perfused, mild bilateral Neuro: Nonfocal Psych: Alert orient x3, normal affect and mood Results & Data ([facility]) Vital Signs (Past 12 Hours) Vital Signs Temp Pulse Pulse Resp BP BP Pulse Ox 06/10/21 10:15 68 21 127/65 95 06/10/21 04:00 98.6 F 68 20 127/58 L 98 06/10/21 03:00 64 28 H 130/51 L 99 06/10/21 02:00 67 28 H 139/53 L 100 06/10/21 01:00 63 29 H 98 06/10/21 00:00 63 31 H 124/60 99 06/09/21 23:00 61 25 H 99 PG Care Time/CCT Total # of Minutes Spent Total Time Spent with Patient: Total time spent is greater than 50% in coordination of care (as documented) at patient's floor/unit and/or counseling patient: Coding Level of Care Code 09844 Initial Inpt Care Lvl 2 Diagnoses Diastolic heart failure I50.30
--- NOTE | 2021-06-10 11:36 | Post Anesthesia Assessment ---
Date of Service June 10, 2021 Post Sedation Assessment Vital Signs Temp Pulse Pulse Resp BP BP Pulse Ox 06/10/21 10:15 68 21 127/65 95 06/10/21 04:00 98.6 F 68 20 127/58 L 98 06/10/21 03:00 64 28 H 130/51 L 99 06/10/21 02:00 67 28 H 139/53 L 100 06/10/21 01:00 63 29 H 98 06/10/21 00:00 63 31 H 124/60 99 06/09/21 23:00 61 25 H 99 06/09/21 22:00 91 06/09/21 21:00 63 28 H 97 06/09/21 20:00 98.2 F 65 34 H 120/59 L 96 06/09/21 19:00 67 27 H 96 06/09/21 18:00 66 20 148/78 H 98 06/09/21 17:00 63 24 139/64 98 06/09/21 16:00 59 L 26 H 126/62 96 06/09/21 15:00 58 L 19 89/57 L 95 06/09/21 14:55 97.9 F 58 L 20 110/15 L 95 06/09/21 14:00 64 30 H 140/61 94 06/09/21 13:06 98.6 F 62 20 112/62 96 06/09/21 13:01 74 18 88/66 L 91 06/09/21 12:00 71 18 92 Recovery Score Activity: Moves 4 extremities Respiration: Deep Breath/Cough Circulation: +/-20% PreAnes Value Consciousness: Fully Awake Oxygen Saturation: O2 needed for >90% Discharge Sedation Level of Care: Fast Track Phase II Post Sedation Plan On clinical assessment, the patient appears to have tolerated the sedation without complications. Patient is recovering as anticipated. Patient will continue to be monitored by nursing and may be discharged when sedation discharge criteria are met per below protocol. Upon Completions of procedure up to 15 minutes continue every 5 minute vital signs and the P.A.R. score; then discharge to a Phase I or Fast Track to Phase II per the following guidelines: * Discharge Patient to appropriate Phase II area if PAR is 8 or greater or return to pre- procedure baseline. The post - procedure orders will be as directed. * If PAR score is less than 8 or not return to pre-procedure baseline then patient will follow Phase I monitoring till PAR is reached for Phase II. The Phase I may be done in procedure room or may call to secure a Phase I area. * If naloxone or flumazenil are used for reversal, hold in Phase I for continued monitoring from when last reversal dose was given for a minimum of 60 minutes or longer pending the nurse and/or physician discretion of patient condition before discharge to Phase II. Please call the Sedation Physician to re-evaluate and complete post-note for discharge to Phase II area. Do NOT discharge from procedure sedation or Phase 1 until post- sedation evaluation note is complete by procedure /sedation MD Sedation Discharge Instructions to be given to the patient at discharge to home.
--- NOTE | 2021-06-10 11:49 | Cardiac Catheterization ---
[facility] Data: Ged Teacher Cardiac Status Clinical evaluation leading to the procedure CAD Presenation: Non STEMI and Sx unlikely to be ischemic Anginal Classification: No Symptoms Heart Failure: NYHA Class: CCS IV Cardiogenic Shock within 24 Hours: No Cardiac Arrest within 24 Hours: Yes Imaging Studies Past 6 Months: Yes Stress Studies Past 6 Months: No Diagnostic Physicians Name: Angel Luis Moran MD Status: Elective Closure Device Percutaneous Entry Location: Radial Closure Device: Radial Band Recommendations: Medical Therapy and/or Counseling Intraprocedure Events Significant Disection: No Perforation: No Cardiac Cath Procedure Full Procedure Date June 10, 2021 Pre-Procedure Diagnosis Pre-Procedure Diagnosis: CHF AUC Score AUC Score: 7 Post-Procedure Diagnosis Post-Procedure Diagnosis: Moderate CAD and Elevated Intracardiac Pressures Procedure(s) Performed Procedure(s) Performed: Coronary Angiography, Left Heart Cath, Right Heart Cath and Ultrasound Guided Vascular Access Child Support Investigator Angel Luis Moran MD Screening Tech(s) Gabe Estimated Blood Loss Estimated Blood Loss: 5 Medication(s) Medication(s): Fentanyl, Lidocaine 1%, Nicardipine, Nitroglycerin and Versed Summary of Findings Indication: Acute heart failure. Respiratory failure. Mildly elevated troponin. Access: 6 Fr left radial artery under ultrasound guidance, 6 Fr left antecubital vein under ultrasound guidance Catheters: JL 3.5, JR4, 6 Fr [place] Findings: LM -large caliber, 20% ostial stenosis LAD -medium caliber, 40% mid segment disease, distal vessel without significant disease as wraps around apex. Medium D1 without disease. Circumflex -nondominant, large caliber, no significant disease RCA -dominant, large caliber, no significant disease RA 4 RV 57/7 PA 61/19 (35) PAWP 7 LV 12 PaSat 65% AoSat 88% Hans CO/CI 9.0/4.0 Thermo CO/CI 10.3/4.6 TPG 23 PVR 2.6 ALONSO Arterial Closure: TR Band Summary: 1. Mild to moderate non-obstructive coronary artery disease -20% ostial left main 40% mid LAD 2. Elevated cardiac output potentially consistent with high-output heart failure 3. Normal left and right-sided filling pressures 4. Moderate pulmonary hypertension (pre-capillary, PVR not elevated). Recommendations: Additional diuretics per Dr. Gordon Continued ASCVD risk factor modification Hemodynamics Rest Ao:: 125/57/85 Final Ao: 124/58/85 LV: 136/12 Recommendations Recommendations: Medical Therapy and/or Counseling Specimens Specimens: None Radiation Exposure (mGy) 809 Contrast (mls) 70 Fluids (cc crystalloids) Fluids (cc crystalloids): 35 Drains Drains: none Anesthesia moderate 0113-5200 Procedural Complication(s) None Disposition ICU I attest to the content of the Intraoperative Record and any orders documented therein. Any exceptions are noted below. [facility] Card Cath Procedure Codes Cardiac Catheterization Procedure 1: Cardiovascular Cath Procedures: 05067 Coronaries & LHC (+/-LV) & RHC Therapeutic Services & Ancillary Proc Procedure 1: Cardiovascular Tx and Anc Procedures: 14991 Ultrasonic Guidance Vascular Access Procedure 2: Cardiovascular Tx and Anc Procedures: 82347 Ultrasonic Guidance Vascular Access Moderate Sedation Procedure 1: Sedation/Anesthesia: 62604 Mod Sedation by the same physician;Init15 Min Child Age 5 & Up Procedure 2: Sedation/Anesthesia: 45279 Mod Sedation by the same physician; Ea [id number] Minutes PG Care Time/CCT Total # of Minutes Spent Total Time Spent with Patient: Total time spent is greater than 50% in coordination of care (as documented) at patient's floor/unit and/or counseling patient:
[2021-06-10 12:51] LABS: Patient Weight 112.9 kg
[2021-06-10] MEDS: POTASSIUM CHLORIDE CRTAB 20 MEQ TABCR PO SCH (14:19)
[2021-06-10] MEDS: IRON POLYSACCHARIDE COMPLEX 150 MG CAPSULE PO SCH (14:19)
[2021-06-10 14:38] LABS: Urine Total Protein 23.9 mg/dl
--- NOTE | 2021-06-10 16:50 | Hospitalist Progress Note ---
Date of Service June 10, 2021 Assessment & Plan (1) Cardiac arrest due to respiratory disorder: Plan: Out of hospital cardiac arrest, etiology is uncertain, most likely due to respiratory failure secondary to bilateral large pleural effusions, possibly secondary to acute diastolic CHF versus hypoalbuminemia ECG NSR, no ischemia. No ECHO done this admission. Was not hypotensive on admission, no evidence of sepsis Patient was successfully resuscitated. Pleural effusions drained bilaterally and extubated on 06/08 Weaned down to 2 L nasal cannula Status post left and right heart cardiac cath-nonobstructive CAD, normal left and right-sided filling pressures, moderate pulmonary hypertension (precapillary, PVR not elevated), elevated cardiac output potentially consistent with high-output heart failure (2) Acute hypoxemic respiratory failure: Plan: Acute respiratory failure with hypoxia as well as hypercapnia secondary to large pleural effusions -likely secondary to heart failure, but could be side effect of Bosulif, also with proteinuria and hypoalbuminemia Initial VBG was 7.06/102 Initially intubated and ventilated With large pleural effusions bilaterally-now status post chest tube on the right which has now been removed, thoracentesis of 1.5 L on the left Was extubated on 06/08, continues on 2L nasal cannula and doing well, no distress Continue diuresing for heart failure as below Wean off O2 as tolerated (3) Diastolic heart failure: Plan: Acute diastolic CHF suspected as above, versus pleural effusions from side effect of chemotherapy and proteinuria/hypoalbuminemia as above Recent echo as an outpatient showed preserved ejection fraction just prior to admission Echocardiogram was not repeated here but with cardiac catheterization results as above Bilateral leg edema on exam which is now improving Appreciate cardiology consultation With rapid atrial fibrillation here as well which may be contributing Continue Bumex 2 mg IV twice daily Has diuresed several liters Replace potassium as needed Cardiology recommends iron studies-show iron deficiency-we will replace with IV iron; recommends SPEP/UPEP-pending; recommends TSH-normal For atrial fibrillation-rhythm control with amiodarone and rate control with metoprolol (4) Pleural effusion, bilateral: Plan: Large bilateral pleural effusions Right fluid is borderline exudative by light's criteria, cytology negative for malignant cells Left pleural fluid also exudative, cytology pending Her albumin in 03/2021 was normal at 4.2, but is now down to 2.2 and she has evidence of proteinuria on urinalysis and spot urine protein/creatinine ratio 24-hour urine protein pending Immunofixation, SPEP, UPEP pending Discussed her care with her primary oncologist at [place], Dr. White. He states that he does not think bosutinib is responsible for her pleural effusions, but that a sister drug to it dasatinib frequently can be. Nephrology does strongly believe that her bosutinib is responsible for her proteinuria and therefore her pleural effusions She apparently had a chest x-ray at the end of March that showed only small pleural effusions-performed at [place], therefore these have significantly worsened just in the last 6 weeks prior to admission Continue to hold bosutinib-her oncologist as this can be held for at least 1 month as her BCR abl levels on recent blood work were undetectable Pulmonology consultation appreciated If pleural effusions reaccumulate, pulmonology suggest transfer for possible VATS and pleural biopsy. (5) LORETTA (acute kidney injury): Plan: With acute kidney injury in the setting of most likely CKD stage III-now resolved Creatinine 2.6 on admission and now 1.0 Making plenty of urine Likely secondary to decreased renal perfusion in the setting of CHF and cardiac arrest renal Doppler negative for renal artery stenosis on the right but nondiagnostic on the left Follow BMP Renal dosing were appropriate Following with nephrology (6) Lactic acidosis: Plan: Lactic acid is elevated on admission and now resolved Likely secondary to profound hypoxemia (7) Abnormal LFTs: Plan: AST and ALT and alkaline phosphatase elevated upon admission likely secondary to hepatic congestion from heart failure This could also be a side effect of her Bosulif for CML LFTs continue to trend downward with diuresis Follow LFTs (8) Atrial fibrillation: Plan: Has a long history of intermittent atrial fibrillation has had ablation in the past Was in rapid atrial fibrillation throughout the day on 06/08 but now remains in sinus rhythm Continue amiodarone but increased dose to 200 mg once daily as per cardiology Was on heparin drip but held for thoracentesis She remains in sinus rhythm -Hold home Xarelto until cleared to restart status post cardiac catheterization Replace potassium as needed Monitor on telemetry (9) CKD (chronic kidney disease) stage 3, GFR 30-59 ml/min: Plan: Noted in outpatient records as per cardiology -Avoid nephrotoxins -renally dose meds when appropriate -follow BMP (10) Hypokalemia: Plan: Now resolved with replacement -Was secondary to loop diuretics Follow BMP and magnesium (11) Iron deficiency anemia: Plan: Hemoglobin low at 9.8, MCV low at 77 She has long history of iron deficiency and takes oral iron supplements as an outpatient Follows with hematology/oncology for her CML as an outpatient Reports last EGD and colonoscopy were probably over 5 years ago Iron studies here show significant iron deficiency with ferritin of 20 and transferrin saturation of 10% Giving IV Venofer daily x5 doses-last dose 06/12 Follow CBC She will need follow-up with GI as an outpatient potentially (12) Elevated troponin: Plan: Troponin minimally elevated at 0.3 and then 0.7 after admission Could be secondary to CPR from cardiac contusion versus myocardial demand ischemia from severe hypoxemia No chest pain and no ischemic changes on EKG Oxycodone as needed for chest pain that is musculoskeletal (13) Submandibular abscess: Plan: noted on CT scan, but not notable on physical examination She recently had a bottom right molar removed about 10 days prior to admission and was on clindamycin With low-grade fevers here initially but now resolved, but doubtful that they are from this small abscess seen on CT oromaxillary facial surgeon has evaluated, no need for surgery for now Continue on unasyn for 7-day course-last dose will be on 06/13 (14) Hypertension: Plan: Blood pressures here are controlled Holding home amlodipine Continue metoprolol at increased dose for atrial fibrillation (15) Hypothyroidism: Plan: TSH is normal Continue home levothyroxine (16) Proteinuria: Plan: With 2+ proteinuria and increased spot urine protein creatinine ratio 0.4 Appreciate nephrology consultation Renal ultrasound as above Thought to be secondary possibly to bosutinib Holding bosutinib for now Checking SPEP, UPEP, immunofixation Follow-up with nephrology (17) CML (chronic myelocytic leukemia): Plan: Primary oncologist is Dr. White at [place] Holding Bosulif as above Follow-up with oncology after discharge Plan: DVT prophylaxis- SCDs, plan to restart Xarelto when safe from cardiac catheterization standpoint Disposition-continue PCU status PT/OT consulted Admission and Anticipated Discharge Date Admission Date: June 06, 2021 Subjective Patient had cardiac catheterization today and has been drowsy since returning from that from anesthesia. She denies any chest pains other than musculoskeletal with movement. No shortness of breath. Is weaned down to 2 L nasal cannula. I discussed her care with her oncologist, Dr. White, at [place] on the phone. I also discussed her care with the carton packaging machine operator. Review of Systems Review of Systems: All systems reviewed & are unremarkable except as noted in HPI & below Physical Exam Constitutional: WD/WN, vitals as above Eyes: + anicteric sclerae Neck: trachea midline, no thyromegaly Respiratory: normal respiratory effort; no cough Auscultation: + diminished lung sounds (at bases bilat); no wheezes Cardiovascular: RRR, no murmur, no edema Rate/Rhythm: regular rate and regular rhythm Heart Sounds: no murmur Extremities: + edema (Trace edema legs and feet bilaterally) Chest (Breasts): Chest: + abnormal inspection of chest (right chest tube) Gastrointestinal (Abdomen): normal bowel sounds, soft, nontender, no hepatosplenomegaly Musculoskeletal: Extremities: extremities normal to inspection; no cyanosis and no clubbing Skin: no rashes, warm and dry Neurologic: moves all extremities and awake; no focal motor deficits Psychiatric: A+Ox3, euthymic affect Lymphatic: no lymphedema Results & Data Results & Data ([facility]) Vital Signs (Past 12 Hours) Vital Signs Pulse Pulse Resp BP BP Pulse Ox 06/10/21 16:00 70 19 138/63 06/10/21 15:30 72 20 94 06/10/21 15:15 73 17 129/63 96 06/10/21 15:00 68 24 95 06/10/21 14:45 77 19 06/10/21 14:30 70 22 125/86 06/10/21 14:15 72 4 L 143/60 H 91 06/10/21 14:00 77 20 143/60 H 79 L 06/10/21 13:30 68 16 133/59 L 06/10/21 13:00 66 12 148/72 H 96 06/10/21 11:40 68 21 135/67 95 06/10/21 10:15 68 21 127/65 95 Laboratory Results Chest X-Ray 06/10/21 07:00 XR chest 1V portable HISTORY: 70 years-old Female resp failure acute respiratory failure COMPARISON: Chest radiograph 05/30/2021 TECHNIQUE: Portable AP view of the chest FINDINGS: Interval removal of the left subclavian central venous catheter. The cardiac silhouette is enlarged. Calcified plaque of the thoracic aorta. Pulmonary vascular congestion with progressive interstitial coarsening. Layering pleural effusions with bibasilar consolidation has progressed. Stable positioning of the right basilar pigtail catheter. No pneumothorax. No acute fracture. Surgical clip of the left axilla. IMPRESSION: 1. Cardiomegaly with pulmonary vascular congestion and mildly progressed interstitial coarsening suggestive of pulmonary edema. An interstitial pneumonitis could appear similarly. 2. Increased size of the layering pleural effusions with progressive bibasilar consolidation. 3. Unchanged positioning of the right basilar pigtail drainage catheter. ACT 112: Negative or not required by law. The above report was generated using voice recognition software. It may contain grammatical, syntax or spelling errors. Electronically signed by: Kevin Stephenson M.D. 06/10/2021 7:24 AM PG Care Time/CCT Total # of Minutes Spent Total Time Spent with Patient: Total time spent is greater than 50% in coordination of care (as documented) at patient's floor/unit and/or counseling patient: Coding Level of Care Code 99442 Subseq Hosp Care Lvl 3 Diagnoses Cardiac arrest due to respiratory disorder J98.9; I46.8 Acute hypoxemic respiratory failure J96.01 Diastolic heart failure I50.30 Pleural effusion, bilateral J90 LORETTA (acute kidney injury) N17.9 Lactic acidosis E87.2 Abnormal LFTs R79.89 Atrial fibrillation I48.91 CKD (chronic kidney disease) stage 3, GFR 30-59 ml/min N18.30 Hypokalemia E87.6 Iron deficiency anemia D50.9 Elevated troponin R77.8 Submandibular abscess K12.2 Hypertension I10 Hypothyroidism E03.9 Proteinuria R80.9 CML (chronic myelocytic leukemia) C92.10
[2021-06-10 16:59] LABS: Creatinine 24 Hour Urine 1.5 gm/24 HR (0.6-2.5); Urine Creatinine 62.9 mg/dl
[2021-06-10 17:36] LABS: Albumin 2.5 g/dL (3.8-4.8); Alpha 1 Globulin 0.4 g/dL (0.2-0.3); Alpha 2 Globulin 0.8 g/dL (0.5-0.9); Beta-1-Globulin 0.4 g/dL (0.4-0.6); Beta-2-Globulin 0.3 g/dL (0.2-0.5); Gamma Globulin 0.6 g/dL (0.8-1.7); Monoclonal Protein Band 1 DNR g/dL (NONE DETECTED); Monoclonal Protein Band 2 DNR g/dL (NONE DETECTED); Monoclonal Protein Band 3 DNR g/dL (NONE DETECTED); Total Protein 5.1 g/dL (6.1-8.1)
[2021-06-10 20:07] LABS: Total Protein 24 Hour Urine 573.6 mg/24 Hr (0-149.1)
[2021-06-10] MEDS: SENNA 8.6 MG TAB PO SCH (20:09)
[2021-06-11] MEDS: AMPICILLIN/SULBACTAM SOD 3,000 MG in 0.9 % SODIUM CHLORIDE 100 ML IV SCH ×4 (03:48→20:44)
[2021-06-11] MEDS: METOPROLOL TARTRATE 25 MG TAB PO SCH ×3 (06:00→17:35)
[2021-06-11] MEDS: LEVOTHYROXINE SODIUM 75 MCG TABLET PO SCH (06:01)
[2021-06-11 06:02] LABS: Albumin Level 2.1 gm/dl (3.4-5.0); BUN Creatinine Ratio 17.7 (10-20); Calcium 8.6 mg/dl (8.5-10.1); Creatinine Clr Calc Pharmacy 66.5 ml/min; Est GFR (African American) 64.5 ml/min; Est GFR (Non-African American) 55.7 ml/min; Potassium 4.2 mmol/L (3.5-5.1)
[2021-06-11 06:03] LABS: Magnesium 1.9 mg/dl (1.8-2.4)
[2021-06-11 06:10] LABS: Albumin Globulin Ratio 0.6 (0.9-2); Bilirubin,Total 0.2 mg/dl (0.2-1); Globulin 3.8 gm/dl (2.5-4.0); Phosphorus 2.4 mg/dl (2.5-4.9); Prealbumin 12.2 mg/dl (20-40); Total Protein 5.9 gm/dl (6.4-8.2)
[2021-06-11 06:15] LABS: Hematocrit (blood only) 33.5 % (37-47); Hemoglobin 9.5 g/dL (12.0-16.0); Mean Corpuscular Hemoglobin 23.3 pg (25-34); Mean Corpuscular Hgb Conc 28.4 g/dL (32-36); Mean Corpuscular Volume 82.3 fL (80-100); Mean Platelet Volume 10.3 fL (7.4-10.4); Platelet Count 243 K/uL (130-400); RDW Coefficient of Variation 16.8 % (11.5-14.5); Red Blood Count 4.07 M/uL (4.2-5.4); White Blood Count 9.86 K/uL (4.8-10.8)
--- NOTE | 2021-06-11 08:49 | Cardiology Progress Note ---
Date of Service June 11, 2021 Assessment & Plan (1) Atrial fibrillation: Plan: IMPRESSIONS: IMPRESSIONS: 1. Acute respiratory failure secondary to acute on chronic diastolic heart failure 2. Unclear etiology for her diastolic heart failure 3. Echocardiogram 04/15/2021 normal biventricular size and function without significant valvular heart disease and a small pericardial effusion 4. Status post ablation for atrial fibrillation and atrial flutter June 2020 5. Chronic kidney disease stage III with a baseline creatinine of 1.5 with acute kidney injury and a peak creatinine of 2.5 this admission 6. 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 History of amiodarone and anticoagulation for her atrial fibrillation 8. History of multiple cardioversions 9. Persistent shortness of breath since her pulmonary vein ablation 10. History of welts and hives secondary to to diltiazem 11 history of breast cancer status post mastectomy without the need for radiation therapy or chemotherapy 12. Hypothyroidism 13. History of ovarian cancer 14. Significant proteinuria possibly related to her use of Bosutinib 15. Status post bilateral thoracenteses this admission Ms. Loera has had good diuresis on Bumex 2 mg IV twice daily and is net negative 3L. Her chest tube has been removed.Her kidney function is stable. Her brief need for CPR was likely related to hypoxic respiratory failure and not a primary cardiac arrhythmic event. She was acidotic with a pH of 7.06 and a lactate of greater than 5 She was in a rapid afib 06/08 and her amiodarone was increased from 100mg to 200 mg. She has been in SR since later that day. Her heparin can be resumed. Will hold off on restarting Xeralto for now to see if effusions stay stable. Per pulmonology, she will need evaluation at [facility] for VATS if they reaccumulate. She had a right and left cardiac cath 06/10 which showed moderate non obstructive CAD, elevated cardiac output potentially consistent with high-output heart failure, normal left and right-sided filling pressures, moderate pulmonary hypertension (pre-capillary, PVR not elevated). As for causes of diastolic heart failure, her thyroid studies are normal and her iron studies were actually low. We're still awaiting her serum protein electrophoresis and urine protein electrophoresis. Per discussion with Dr. Conde, patient's CML treatment may be the cause of her proteinuria and low albumin although it sounds like her oncologist is less certain when discussed with Dr. Diana. I will increase her diuretics for today to see if we can keep her effusions from re-accumulating. Admission and Anticipated Discharge Date Admission Date: June 06, 2021 Subjective Ms. Loera is doing well. She has chest tenderness from compressions but otherwise is not having any concerning anginal symptoms. No sob. She is still coughing, moist but non productive. No palpitations. She has been in sinus rhythm for the last couple of days. Review of Systems Review of Systems: All systems reviewed & are unremarkable except as noted in HPI & below Physical Exam Constitutional: WD/WN, vitals as above Respiratory: normal respiratory effort, lungs clear to auscultation Cardiovascular: Rate/Rhythm: regular rate and regular rhythm Heart Sounds: + murmur (llsb 3/6 systolic murmur ) Extremities: no edema Results & Data ([facility]) Vital Signs (Past 12 Hours) Vital Signs Temp Pulse Pulse Resp BP Pulse Ox 06/11/21 07:36 36.9 C 67 20 124/55 L 91 06/11/21 03:23 36.8 C 65 34 H 129/61 92 06/11/21 00:29 20 92 06/11/21 00:07 37 C 69 28 H 121/54 L 92 06/10/21 23:59 68
[2021-06-11] MEDS ORDERED: Heparin IV Adult Wt-Based Standard *NO* Bolus Protocol ONE (09:06)
[2021-06-11] MEDS: AMIODARONE 200 MG TAB PO SCH (09:07)
[2021-06-11] MEDS: IRON POLYSACCHARIDE COMPLEX 150 MG CAPSULE PO SCH (09:07)
[2021-06-11] MEDS: POTASSIUM CHLORIDE CRTAB 20 MEQ TABCR PO SCH (09:10)
[2021-06-11] MEDS: IRON SUCROSE 200 MG in 0.9 % SODIUM CHLORIDE 100 ML IV SCH (09:10)
--- NOTE | 2021-06-11 09:15 | Nephrology Progress Note ---
Date of Service June 11, 2021 Assessment & Plan (1) CKD (chronic kidney disease) stage 3, GFR 30-59 ml/min: Plan: * Baseline Cr 1.5 * 06/16 urine sediment negative for blood, positive for hyaline casts * 06/16 UPCR 0.4, 24 hour urine 573 mg * Awaiting results of UIEP * 06/16 renal artery duplex: R 11.4cm, L 12.2cm. No R [place], L RA poorly visualized * Renal impairment is likely on the basis of microvascular disease * Monitor PRP (2) Proteinuria: Plan: * Proteinuria likely on the basis of TKI/VEGF inhibitor. Agree w/ holding Bosutinib * Urinalysis revealed 2+ protein on a concentrated sample * 06/16 UPCR 0.4, 24 hour urine 573 mg. Patient does not have nephrotic syndrome * Await results of UIEP study * Recommend consultation w/ Oncology to determine whether patient will be able to resume Bosutinib (lower dose?) or need to transition to alternative therapy. CCP can coordinate treatment w/ [facility] Oncologist Dr. White Admission and Anticipated Discharge Date Admission Date: June 06, 2021 Subjective Ms. Loera was evaluated in her hospital room this morning. She denied angina and reports that her breathing is subjectively improved. Cardiac catheterization yesterday was negative for significant coronary atherosclerosis. Review of Systems Constitutional: no fever Eyes: no problem reported Ear, Nose, Mouth, Throat: no problem reported Respiratory: no cough and no dyspnea Cardiovascular: no chest pain and no edema Gastrointestinal: no abdominal pain, no nausea, no vomiting and no diarrhea/loose stools Genitourinary: no dysuria and no hematuria Musculoskeletal: no back pain Integumentary: no rash Neurologic: no confusion Physical Exam Constitutional: not in distress Eyes: PERRL, conjunctivae normal, anicteric sclerae ENMT: external ear and nose normal, oropharynx normal Neck: trachea midline, no thyromegaly Respiratory: normal respiratory effort, lungs clear to auscultation Cardiovascular: RRR, no murmur, no edema Gastrointestinal (Abdomen): normal bowel sounds, soft, nontender, no hepatosplenomegaly Skin: no rashes, warm and dry Neurologic: awake; not confused Results & Data ([facility]) Vital Signs (Past 12 Hours) Vital Signs Temp Pulse Pulse Resp BP Pulse Ox 06/11/21 07:36 36.9 C 67 20 124/55 L 91 06/11/21 03:23 36.8 C 65 34 H 129/61 92 06/11/21 00:29 20 92 06/11/21 00:07 37 C 69 28 H 121/54 L 92 06/10/21 23:59 68 Laboratory Results Laboratory Tests 06/10/21 06/10/21 06/11/21 12:30 12:30 05:15 WBC Hgb Hct Plt Count Sodium 137 Potassium 4.2 Chloride 101 Carbon Dioxide 35 H BUN 18 Creatinine 1.02 Glucose 92 Total Bilirubin 0.2 AST 21 ALT 54 Alkaline Phosphatase 100 Albumin 2.1 L Creatinine Clearance 73.0 L Ur Total Protein 24 Hr 573.6 H 06/11/21 05:15 WBC 9.86 Hgb 9.5 L Hct 33.5 L Plt Count 243 Sodium Potassium Chloride Carbon Dioxide BUN Creatinine Glucose Total Bilirubin AST ALT Alkaline Phosphatase Albumin Creatinine Clearance Ur Total Protein 24 Hr PG Care Time/CCT Total # of Minutes Spent Total Time Spent with Patient: Total time spent is greater than 50% in coordination of care (as documented) at patient's floor/unit and/or counseling patient: Coding Level of Care Code 18217 Subseq Hosp Care Lvl 3 Diagnoses CKD (chronic kidney disease) stage 3, GFR 30-59 ml/min N18.30 Proteinuria R80.9
[2021-06-11] MEDS: BUMETANIDE 2 MG in SYRINGE 0 ML IV SCH ×3 (10:00→20:45)
[2021-06-11] MEDS: HEPARIN SODIUM/DEXTROSE 25,000 UNITS/500 ML BAG IV SCH (10:01)
[2021-06-11 10:16] LABS: Creatinine Ur 52 mg/dL (20-275); Protein, Urine Random 17 mg/dL (5-24); Ur Protein/Creat Ratio mg/g 327 mg/g creat (21-161); Urine Abnormal Protein Band 1 DNR mg/dL (NONE DETECTED); Urine Abnormal Protein Band 2 DNR mg/dL (NONE DETECTED); Urine Abnormal Protein Band 3 DNR mg/dL (NONE DETECTED); Urine Protein/Creatinine Ratio 0.327 (0.021-0.161)
[2021-06-11 10:43] LABS: iSTAT Arterial Blood Gas pCO2 82 mmHg (35-46); iSTAT Arterial Blood Gas pH 7.26 (7.35-7.45); iSTAT Arterial Blood Gas pO2 41 mmHg (80-95)
[2021-06-11 10:44] LABS: iSTAT Arterial Blood Gas HCO3 37 meg/L (19-24); iSTAT Carbon Dioxide 39 mmol/L (24-31)
[2021-06-11 10:45] LABS: iSTAT Arterial Blood Gas HCO3 36 meg/L (19-24); iSTAT Arterial Blood Gas pCO2 77 mmHg (35-46); iSTAT Arterial Blood Gas pH 7.27 (7.35-7.45); iSTAT Arterial Blood Gas pO2 66 mmHg (80-95); iSTAT Carbon Dioxide 38 mmol/L (24-31)
--- NOTE | 2021-06-11 11:16 | Hospitalist Progress Note ---
Date of Service June 11, 2021 Assessment & Plan (1) Cardiac arrest due to respiratory disorder: Plan: patient had Out of hospital cardiac arrest, etiology is uncertain, most likely due to respiratory failure secondary to bilateral large pleural effusions, possibly secondary to acute diastolic CHF No evidence of infection on admission Patient was successfully resuscitated.Initially intubated and ventilated in the emergency department and ICU Pleural effusions drained bilaterally. Liberated from the vent and currently saturating well on 2 L of oxygen through nasal cannula Status post left and right heart cardiac cath-nonobstructive CAD, normal left and right-sided filling pressures, moderate pulmonary hypertension (precapillary, PVR not elevated), elevated cardiac output potentially consistent with high-output heart failure. Cardiology service on consult, recommendations appreciated. (2) Acute hypoxemic respiratory failure: Plan: Probably secondary to large bilateral pleural effusions, and congestive heart failure. Large effusions could be a side effect of her CML medication, bosutinib, which is currently on hold. Patient initially intubated, has been extubated and currently saturating well on 2 L of oxygen through nasal cannula. (3) Diastolic heart failure: Plan: Acute diastolic CHF suspected as above, versus pleural effusions from side effect of chemotherapy and proteinuria/hypoalbuminemia as above Recent echo as an outpatient showed preserved ejection fraction just prior to admission Echocardiogram was not repeated here but with cardiac catheterization results as above Bilateral leg edema on exam which is now improving Appreciate cardiology consultation With rapid atrial fibrillation here as well which may be contributing Continue Bumex 2 mg IV twice daily Monitor input and output, daily weight For atrial fibrillation-rhythm control with amiodarone and rate control with metoprolol (4) Pleural effusion, bilateral: Plan: Large bilateral pleural effusions Right fluid is borderline exudative by light's criteria, cytology negative for malignant cells Left pleural fluid also exudative, cytology pending Her albumin in 03/2021 was normal at 4.2, but is now down to 2.2 and she has evidence of proteinuria on urinalysis and spot urine protein/creatinine ratio 24-hour urine protein pending Immunofixation, SPEP, UPEP pending Discussed her care with her primary oncologist at [place], Dr. White. He states that he does not think bosutinib is responsible for her pleural effusions, but that a sister drug to it dasatinib frequently can be. Nephrology does strongly believe that her bosutinib is responsible for her prot einuria and therefore her pleural effusions She apparently had a chest x-ray at the end of March that showed only small pleural effusions-performed at [place], therefore these have significantly wor sened just in the last 6 weeks prior to admission Continue to hold bosutinib-her oncologist as this can be held for at least 1 month as her BCR abl levels on recent blood work were undetectable Pulmonology consultation appreciated If pleural effusions reaccumulate, pulmonology suggest transfer for possible VATS and pleural biopsy. (5) LORETTA (acute kidney injury): Plan: Now resolved Likely secondary to decreased renal perfusion in the setting of CHF and cardiac arrest renal Doppler negative for renal artery stenosis on the right but nondiagnostic on the left Follow BMP Renal dosing were appropriate Following with nephrology (6) Lactic acidosis: Plan: resolved (7) Abnormal LFTs: Plan: AST and ALT and alkaline phosphatase elevated upon admission likely secondary to hepatic congestion from heart failure This could also be a side effect of her Bosulif for CML LFTs continue to trend downward with diuresis Follow LFTs (8) Atrial fibrillation: Plan: Has a long history of intermittent atrial fibrillation has had ablation in the past Was in rapid atrial fibrillation throughout the day on 06/08 but now remains in sinus rhythm Continue amiodarone but increased dose to 200 mg once daily as per cardiology Was on heparin drip but held for thoracentesis She remains in sinus rhythm -Hold home Xarelto and continue Heparin in case patient needs another thoracentesis Monitor on telemetry (9) CKD (chronic kidney disease) stage 3, GFR 30-59 ml/min: Plan: Noted in outpatient records as per cardiology -Avoid nephrotoxins -renally dose meds when appropriate -follow BMP (10) Hypokalemia: Plan: resolved (11) Iron deficiency anemia: Plan: Hemoglobin low at 9.8, MCV low at 77 She has long history of iron deficiency and takes oral iron supplements as an outpatient Follows with hematology/oncology for her CML as an outpatient Reports last EGD and colonoscopy were probably over 5 years ago Iron studies here show significant iron deficiency with ferritin of 20 and transferrin saturation of 10% Giving IV Venofer daily x5 doses-last dose 06/12 Follow CBC She will need follow-up with GI as an outpatient potentially (12) Elevated troponin: Plan: Troponin minimally elevated at 0.3 and then 0.7 after admission Could be secondary to CPR from cardiac contusion versus myocardial demand ischemia from severe hypoxemia No chest pain and no ischemic changes on EKG Oxycodone as needed for chest pain that is musculoskeletal (13) Submandibular abscess: Plan: noted on CT scan, but not notable on physical examination She recently had a bottom right molar removed about 10 days prior to admission and was on clindamycin With low-grade fevers here initially but now resolved, but doubtful that they are from this small abscess seen on CT oromaxillary facial surgeon has evaluated, no need for surgery for now Continue on unasyn for 7-day course-last dose will be on 06/13 (14) Hypertension: Plan: Blood pressures here are controlled Holding home amlodipine Continue metoprolol at increased dose for atrial fibrillation (15) Hypothyroidism: Plan: TSH is normal Continue home levothyroxine (16) Proteinuria: Plan: With 2+ proteinuria and increased spot urine protein creatinine ratio 0.4 Appreciate nephrology consultation Renal ultrasound as above Thought to be secondary possibly to bosutinib Holding bosutinib for now Checking SPEP, UPEP, immunofixation Follow-up with nephrology (17) CML (chronic myelocytic leukemia): Plan: Primary oncologist is Dr. White at [place] Holding Bosulif as above Follow-up with oncology after discharge Plan: DVT prophylaxis- SCDs, plan to restart Xarelto when safe from cardiac catheterization standpoint Disposition-continue PCU status PT/OT consulted Admission and Anticipated Discharge Date Admission Date: June 06, 2021 Subjective Patient seen and examined today, sitting up in the chair, denies chest pain or shortness of breath. Review of Systems Review of Systems: All systems reviewed are negative, apart from the ones contained in the history. Physical Exam Physical Exam: The patient is awake, alert and oriented 3, well developed and well nourished, normocephalic and atraumatic, lying in bed and in no acute distress. HEENT--PERRL, EOMI, mucous membranes and oropharynx mildly dry Neck--supple. No JVD. No bruits. Thyroid normal, trachea midline, no adenopathy. Heart--normal S1 and S2. No murmurs, rubs or gallops. Lungs--clear bilaterally, no respiratory distress, no accessory muscle use. Abdomen--normal bowel sounds and soft. Mild epigastric and left sided abdominal pain Extremities--no cyanosis or clubbing. trace edema. Dermatologic--normal skin turgor, normal color, no abnormal lymph nodes, no rash. Neurologic--cranial nerves II through XII grossly intact. Rheumatologic--normal range of motion. Psychiatric--normal affect. Results & Data Results & Data ([facility]) Vital Signs (Past 12 Hours) Vital Signs Temp Pulse Pulse Resp BP Pulse Ox 06/11/21 07:36 98.4 F 67 20 124/55 L 91 06/11/21 03:23 98.2 F 65 34 H 129/61 92 06/11/21 00:29 20 92 06/11/21 00:07 98.6 F 69 28 H 121/54 L 92 06/10/21 23:59 68 Laboratory Results Laboratory Results - last 24 hr 06/08/21 06/09/21 06/10/21 12:30 04:40 05:09 WBC RBC Hgb Hct MCV MCH MCHC RDW Std Deviation RDW Coeff of Kvng Plt Count MPV Activ Coag Time Kaolin POC pH POC pCO2 POC pO2 POC HCO3 POC Total CO2 POC Base Excess Sodium Potassium Chloride Carbon Dioxide Anion Gap BUN Creatinine 1.12 Est Cr Clr Drug Dosing Est GFR ( Amer) Est GFR (Non-Af Amer) BUN/Creatinine Ratio Glucose Calcium Phosphorus Magnesium Total Bilirubin AST ALT Alkaline Phosphatase Total Protein Total Protein (PEP) 5.1 L Albumin Albumin (PEP) 2.5 L Globulin Albumin/Globulin Ratio Prealbumin Shsre-4-Gsbzbmbdu 0.4 H Vwzjc-9-Pvirrbwkn 0.8 Nfco-0-Wncryhpt 0.4 Whup-0-Zfrqsmnr 0.3 Gamma Globulins 0.6 L Monoclonal Peak 3 DNR Ser Monoclonl Protein DNR Ser Monoclonal Prot 2 DNR PEP Interpretation SEE NOTE U Random Total Protein 17 Urine Collection Time Urine Total Volume Urine Creatinine Ur Creatinine mg/dL 52 Ur Creatinine 24 Hour Height (cm) Weight (kg) Creatinine Clearance Ur Total Protein 24 Hr Protein/Creatinin Ratio 0.327 H Urine Total Protein Urine Albumin (%) 17 U Iwglg-7-Xvkzmsmv (%) 4 U Hblhu-6-Xiepcsml (%) 32 U Beta Globulin (%) 26 U Gamma Globulin (%) 22 U Abnormal Prot Band 1 DNR U Abnormal Prot Band 2 DNR U Abnormal Prot Band 3 DNR Urine PEP Interpret SEE NOTE Serum Immunofixation Urine Immunofixation Free [place] LC, Quant Free Lambda LC, Quant Free [place]/Lambda Ratio 06/10/21 06/10/21 06/10/21 05:09 11:14 11:15 WBC RBC Hgb Hct MCV MCH MCHC RDW Std Deviation RDW Coeff of Kvng Plt Count MPV Activ Coag Time Kaolin 166 H 166 H POC pH POC pCO2 POC pO2 POC HCO3 POC Total CO2 POC Base Excess Sodium Potassium Chloride Carbon Dioxide Anion Gap BUN Creatinine 1.12 Est Cr Clr Drug Dosing Est GFR ( Amer) Est GFR (Non-Af Amer) BUN/Creatinine Ratio Glucose Calcium Phosphorus Magnesium Total Bilirubin AST ALT Alkaline Phosphatase Total Protein Total Protein (PEP) Albumin Albumin (PEP) Globulin Albumin/Globulin Ratio Prealbumin Rjevi-4-Jwvllgwie Atdbb-3-Rludpgbbj Hzyn-7-Riglggdr Axji-9-Yiwvmrkd Gamma Globulins Monoclonal Peak 3 Ser Monoclonl Protein Ser Monoclonal Prot 2 PEP Interpretation U Random Total Protein Urine Collection Time Urine Total Volume Urine Creatinine Ur Creatinine mg/dL Ur Creatinine 24 Hour Height (cm) Weight (kg) Creatinine Clearance Ur Total Protein 24 Hr Protein/Creatinin Ratio Urine Total Protein Urine Albumin (%) U Tygoa-3-Mvmwylyn (%) U Ixnhe-4-Czwerofa (%) U Beta Globulin (%) U Gamma Globulin (%) U Abnormal Prot Band 1 U Abnormal Prot Band 2 U Abnormal Prot Band 3 Urine PEP Interpret Serum Immunofixation Urine Immunofixation Free [place] LC, Quant Free Lambda LC, Quant Free [place]/Lambda Ratio 06/10/21 06/10/21 06/10/21 11:19 11:21 12:30 WBC RBC Hgb Hct MCV MCH MCHC RDW Std Deviation RDW Coeff of Kvng Plt Count MPV Activ Coag Time Kaolin POC pH 7.26 L 7.27 L POC pCO2 82 H 77 H POC pO2 41 L 66 L POC HCO3 37 H 36 H POC Total CO2 39 H 38 H POC Base Excess 9.0 H 9.0 H Sodium Potassium Chloride Carbon Dioxide Anion Gap BUN Creatinine Est Cr Clr Drug Dosing Est GFR ( Amer) Est GFR (Non-Af Amer) BUN/Creatinine Ratio Glucose Calcium Phosphorus Magnesium Total Bilirubin AST ALT Alkaline Phosphatase Total Protein Total Protein (PEP) Albumin Albumin (PEP) Globulin Albumin/Globulin Ratio Prealbumin Selay-0-Lxssxstts Tedhc-2-Apanyrawf Jthl-7-Ruathjqq Vkix-5-Bwxewwbh Gamma Globulins Monoclonal Peak 3 Ser Monoclonl Protein Ser Monoclonal Prot 2 PEP Interpretation U Random Total Protein Urine Collection Time 24 Urine Total Volume 2400 Urine Creatinine 62.9 Ur Creatinine mg/dL Ur Creatinine 24 Hour 1.5 Height (cm) 170.2 Weight (kg) 112.9 Creatinine Clearance 73.0 L Ur Total Protein 24 Hr Protein/Creatinin Ratio Urine Total Protein Urine Albumin (%) U Aavhg-0-Njwvxzib (%) U Rqylt-0-Hzpjtvlr (%) U Beta Globulin (%) U Gamma Globulin (%) U Abnormal Prot Band 1 U Abnormal Prot Band 2 U Abnormal Prot Band 3 Urine PEP Interpret Serum Immunofixation Urine Immunofixation Free [place] LC, Quant Free Lambda LC, Quant Free [place]/Lambda Ratio 06/10/21 06/11/21 06/11/21 12:30 05:15 05:15 WBC 9.86 RBC 4.07 L Hgb 9.5 L Hct 33.5 L MCV 82.3 MCH 23.3 L MCHC 28.4 L RDW Std Deviation 51.0 H RDW Coeff of Kvng 16.8 H Plt Count 243 MPV 10.3 Activ Coag Time Kaolin POC pH POC pCO2 POC pO2 POC HCO3 POC Total CO2 POC Base Excess Sodium 137 Potassium 4.2 Chloride 101 Carbon Dioxide 35 H Anion Gap 1.0 L BUN 18 Creatinine 1.02 Est Cr Clr Drug Dosing 66.5 Est GFR ( Amer) 64.5 Est GFR (Non-Af Amer) 55.7 BUN/Creatinine Ratio 17.7 Glucose 92 Calcium 8.6 Phosphorus 2.4 L Magnesium 1.9 Total Bilirubin 0.2 AST 21 ALT 54 Alkaline Phosphatase 100 Total Protein 5.9 L Total Protein (PEP) Albumin 2.1 L Albumin (PEP) Globulin 3.8 Albumin/Globulin Ratio 0.6 L Prealbumin 12.2 L Trbub-2-Feqankskd Gdqgp-0-Txwslgifg Cgpp-1-Hamsfiqz Anbh-6-Ledfoorq Gamma Globulins Monoclonal Peak 3 Ser Monoclonl Protein Ser Monoclonal Prot 2 PEP Interpretation U Random Total Protein Urine Collection Time Urine Total Volume 2400 Urine Creatinine Ur Creatinine mg/dL Ur Creatinine 24 Hour Height (cm) Weight (kg) Creatinine Clearance Ur Total Protein 24 Hr 573.6 H Protein/Creatinin Ratio Urine Total Protein 23.9 Urine Albumin (%) U Vuyfm-4-Yzeyhjif (%) U Qkudi-2-Zixjmlzt (%) U Beta Globulin (%) U Gamma Globulin (%) U Abnormal Prot Band 1 U Abnormal Prot Band 2 U Abnormal Prot Band 3 Urine PEP Interpret Serum Immunofixation Urine Immunofixation Free [place] LC, Quant Free Lambda LC, Quant Free [place]/Lambda Ratio 06/11/21 06/11/21 05:15 05:40 WBC RBC Hgb Hct MCV MCH MCHC RDW Std Deviation RDW Coeff of Kvng Plt Count MPV Activ Coag Time Kaolin POC pH POC pCO2 POC pO2 POC HCO3 POC Total CO2 POC Base Excess Sodium Potassium Chloride Carbon Dioxide Anion Gap BUN Creatinine Est Cr Clr Drug Dosing Est GFR ( Amer) Est GFR (Non-Af Amer) BUN/Creatinine Ratio Glucose Calcium Phosphorus Magnesium Total Bilirubin AST ALT Alkaline Phosphatase Total Protein Total Protein (PEP) Albumin Albumin (PEP) Globulin Albumin/Globulin Ratio Prealbumin Qluja-5-Tyvtlaasc Okicm-3-Zdvczkbjv Hset-0-Yqvrvsnq Jaos-4-Hggncjar Gamma Globulins Monoclonal Peak 3 Ser Monoclonl Protein Ser Monoclonal Prot 2 PEP Interpretation U Random Total Protein Urine Collection Time Urine Total Volume Urine Creatinine Ur Creatinine mg/dL Ur Creatinine 24 Hour Height (cm) Weight (kg) Creatinine Clearance Ur Total Protein 24 Hr Protein/Creatinin Ratio Urine Total Protein Urine Albumin (%) U Mhwzw-0-Yymsbomq (%) U Ihcky-5-Wjodmzrw (%) U Beta Globulin (%) U Gamma Globulin (%) U Abnormal Prot Band 1 U Abnormal Prot Band 2 U Abnormal Prot Band 3 Urine PEP Interpret Serum Immunofixation Pending Urine Immunofixation Pending Free Sanford LC, Quant Pending Free Lambda LC, Quant Pending Free Sanford/Lambda Ratio Pending PG Care Time/CCT Total # of Minutes Spent Total Time Spent with Patient: Total time spent is greater than 50% in coordination of care (as documented) at patient's floor/unit and/or counseling patient: Coding Level of Care Code 22581 Subseq Hosp Care Lvl 2 Diagnoses Cardiac arrest due to respiratory disorder J98.9; I46.8 Acute hypoxemic respiratory failure J96.01 Diastolic heart failure I50.30 Pleural effusion, bilateral J90 LORETTA (acute kidney injury) N17.9 Lactic acidosis E87.2 Abnormal LFTs R79.89 Atrial fibrillation I48.91 CKD (chronic kidney disease) stage 3, GFR 30-59 ml/min N18.30 Hypokalemia E87.6 Iron deficiency anemia D50.9 Elevated troponin R77.8 Submandibular abscess K12.2 Hypertension I10 Hypothyroidism E03.9 Proteinuria R80.9 CML (chronic myelocytic leukemia) C92.10 Time Spent (min) 35
[2021-06-11 16:30] LABS: Partial Thromboplastin Ratio 2.3
[2021-06-11 17:10] LABS: Partial Thromboplastin Time 59.4 Seconds (21.0-31.0)
[2021-06-11] MEDS: SENNA 8.6 MG TAB PO SCH (20:45)
[2021-06-12] MEDS: ACETAMINOPHEN 500 MG TAB PO PRN (00:34)
[2021-06-12] MEDS: METOPROLOL TARTRATE 25 MG TAB PO SCH ×5 (00:35→23:48)
[2021-06-12] MEDS: HEPARIN SODIUM/DEXTROSE 25,000 UNITS/500 ML BAG IV SCH (03:27)
[2021-06-12] MEDS: AMPICILLIN/SULBACTAM SOD 3,000 MG in 0.9 % SODIUM CHLORIDE 100 ML IV SCH ×4 (04:14→20:24)
[2021-06-12 05:54] LABS: Partial Thromboplastin Ratio 1.6; Partial Thromboplastin Time 41.4 Seconds (21.0-31.0)
[2021-06-12] MEDS: LEVOTHYROXINE SODIUM 75 MCG TABLET PO SCH (06:05)
[2021-06-12 06:46] LABS: BUN Creatinine Ratio 13.9 (10-20); Calcium 8.3 mg/dl (8.5-10.1); Creatinine Clr Calc Pharmacy 59.8 ml/min; Est GFR (African American) 59.6 ml/min; Est GFR (Non-African American) 51.4 ml/min; Potassium 3.6 mmol/L (3.5-5.1)
[2021-06-12 06:49] LABS: Albumin Globulin Ratio 0.5 (0.9-2); Bilirubin,Total 0.2 mg/dl (0.2-1); Globulin 3.9 gm/dl (2.5-4.0); Total Protein 5.9 gm/dl (6.4-8.2)
--- NOTE | 2021-06-12 08:35 | Cardiology Progress Note ---
Date of Service June 12, 2021 Assessment & Plan (1) Atrial fibrillation: Plan: IMPRESSIONS: IMPRESSIONS: 1. Acute respiratory failure secondary to acute on chronic diastolic heart failure 2. Unclear etiology for her diastolic heart failure 3. Echocardiogram 04/15/2021 normal biventricular size and function without significant valvular heart disease and a small pericardial effusion 4. Status post ablation for atrial fibrillation and atrial flutter June 2020 5. Chronic kidney disease stage III with a baseline creatinine of 1.5 with acute kidney injury and a peak creatinine of 2.5 this admission 6. 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 History of amiodarone and anticoagulation for her atrial fibrillation 8. History of multiple cardioversions 9. Persistent shortness of breath since her pulmonary vein ablation 10. History of welts and hives secondary to to diltiazem 11 history of breast cancer status post mastectomy without the need for radiation therapy or chemotherapy 12. Hypothyroidism 13. History of ovarian cancer 14. Significant proteinuria possibly related to her use of Bosutinib 15. Status post bilateral thoracenteses this admission Ms. Loera has had good diuresis on Bumex 2 mg IV which was increased to three times daily 06/11. She is net negative 5L. Her chest tube has been removed.Her kidney function is stable. Her brief need for CPR was likely related to hypoxic respiratory failure and not a primary cardiac arrhythmic event. She was acidotic with a pH of 7.06 and a lactate of greater than 5 She was in a rapid afib 06/08 and her amiodarone was increased from 100mg to 200 mg. She has been in SR since later that day. She continues on a heparin drip. Will hold off on restarting Xeralto for now to see if effusions stay stable. Per pulmonology, she will need evaluation at [place] for VATS if they reaccumulate. I will recheck a chest Xray today to check stability of her effusions. She had a right and left cardiac cath 06/10 which showed moderate non obstructive CAD, elevated cardiac output potentially consistent with high-output heart failure, normal left and right-sided filling pressures, moderate pulmonary hypertension (pre-capillary, PVR not elevated). As for causes of diastolic heart failure, her thyroid studies are normal and her iron studies were actually low. We're still awaiting her urine protein electrophoresis. SPEP was abnormal so serum free light chains, urine immunofixation and serum immunofixation was ordered and pending. Per discussion with Dr. Conde, patient's CML treatment may be the cause of her proteinuria and low albumin although it sounds like her oncologist is less certain when discussed with Dr. Diana. I would also recommend that Ms. Loera be referred to multi disciplinary chest clinic at [place] at discharge for further management. Admission and Anticipated Discharge Date Admission Date: June 06, 2021 Subjective Ms. Loera was sleeping comfortably when I saw her. She awoke easily. No complaints except for continued chest tenderness where she had compressions. Improved with Tylenol. She does not feel sob. Sinus rhythm on the monitor. No events overnight Review of Systems Review of Systems: All systems reviewed & are unremarkable except as noted in HPI & below Physical Exam Constitutional: WD/WN, vitals as above Respiratory: normal respiratory effort, lungs clear to auscultation Cardiovascular: Rate/Rhythm: regular rate and regular rhythm Heart Sounds: + murmur (llsb 3/6 systolic murmur ) Extremities: no edema Skin: no rashes, warm and dry Neurologic: moves all extremities and awake Psychiatric: Orientation: oriented x 3 Results & Data ([facility]) Vital Signs (Past 12 Hours) Vital Signs Temp Pulse Pulse Resp BP Pulse Ox 06/12/21 07:54 36.8 C 62 18 146/70 H 93 06/12/21 03:29 36.7 C 65 18 121/60 93 06/11/21 23:59 70 06/11/21 23:15 37.1 C 71 19 132/65 93
--- NOTE | 2021-06-12 09:15 | Nephrology Progress Note ---
Date of Service June 12, 2021 Assessment & Plan (1) CKD (chronic kidney disease) stage 3, GFR 30-59 ml/min: Plan: * Baseline Cr 1.5 * 06/16 urine sediment negative for blood, positive for hyaline casts * 06/16 UPCR 0.4, 24 hour urine 573 mg * UPEP with a slight restriction. Patient w/ known h/o breast CA, uterine CA and CML. She follows w/ Oncology * 06/16 renal artery duplex: R 11.4cm, L 12.2cm. No R [place], L RA poorly visualized * Renal impairment is likely on the basis of microvascular disease * Monitor PRP (2) Proteinuria: Plan: * Proteinuria likely on the basis of TKI/VEGF inhibitor. Agree w/ holding Bosutinib * Urinalysis revealed 2+ protein on a concentrated sample * 06/16 UPCR 0.4, 24 hour urine 573 mg. Patient does not have nephrotic syndrome * UPEP with a slight restriction. Patient w/ known h/o breast CA, uterine CA and CML. She follows w/ Oncology * Recommend consultation w/ Oncology to determine whether patient will be able to resume Bosutinib (lower dose?) or need to transition to alternative therapy. CCP can coordinate treatment w/ [facility] Oncologist Dr. White * No further Nephrology evaluation indicated at this time. Will sign off. Please call if further assistance is needed Admission and Anticipated Discharge Date Admission Date: June 06, 2021 Subjective Ms. Loera was evaluated in her hospital room this morning. She denied angina and reports that her breathing is subjectively improved. Review of Systems Constitutional: no fever Eyes: no problem reported Ear, Nose, Mouth, Throat: no problem reported Respiratory: no cough and no dyspnea Cardiovascular: no chest pain and no edema Gastrointestinal: no abdominal pain, no nausea, no vomiting and no diarrhea/loose stools Genitourinary: no dysuria and no hematuria Musculoskeletal: no back pain Integumentary: no rash Neurologic: no confusion Physical Exam Constitutional: not in distress Eyes: PERRL, conjunctivae normal, anicteric sclerae ENMT: external ear and nose normal, oropharynx normal Neck: trachea midline, no thyromegaly Respiratory: normal respiratory effort, lungs clear to auscultation Auscu ltation: + diminished lung sounds (at bases bilaterally) Cardiovascular: RRR, no murmur, no edema Gastrointestinal (Abdomen): normal bowel sounds, soft, nontender, no hepatosplenomegaly Skin: no rashes, warm and dry Neurologic: awake; not confused Results & Data ([facility]) Vital Signs (Past 12 Hours) Vital Signs Temp Pulse Pulse Resp BP Pulse Ox 06/12/21 07:54 36.8 C 62 18 146/70 H 93 06/12/21 03:29 36.7 C 65 18 121/60 93 06/11/21 23:59 70 06/11/21 23:15 37.1 C 71 19 132/65 93 Laboratory Results Laboratory Tests 06/11/21 06/12/21 05:15 05:04 WBC 9.86 Hgb 9.5 L Hct 33.5 L Plt Count 243 Sodium 139 Potassium 3.6 Chloride 98 Carbon Dioxide 36 H BUN 15 Creatinine 1.09 PG Care Time/CCT Total # of Minutes Spent Total Time Spent with Patient: Total time spent is greater than 50% in coordination of care (as documented) at patient's floor/unit and/or counseling patient: Coding Level of Care Code 57450 Subseq Hosp Care Lvl 3 Diagnoses CKD (chronic kidney disease) stage 3, GFR 30-59 ml/min N18.30 Proteinuria R80.9
[2021-06-12] MEDS: IRON POLYSACCHARIDE COMPLEX 150 MG CAPSULE PO SCH (09:59)
[2021-06-12] MEDS: AMIODARONE 200 MG TAB PO SCH (10:00)
[2021-06-12] MEDS: POTASSIUM CHLORIDE CRTAB 20 MEQ TABCR PO SCH (10:00)
[2021-06-12] MEDS: BUMETANIDE 2 MG in SYRINGE 0 ML IV SCH ×3 (10:01→20:23)
[2021-06-12] MEDS: IRON SUCROSE 200 MG in 0.9 % SODIUM CHLORIDE 100 ML IV SCH (10:35)
--- NOTE | 2021-06-12 11:22 | XRay Report ---
XR chest 2V PA/lateral CLINICAL HISTORY: pleural effusions TECHNIQUE: AP and lateral frontal radiograph of the chest was obtained. Comparison: Comparison is made to chest one view 06/10/2021 FINDINGS: No lines and tubes are seen. The cardiomediastinal silhouette is normal. Bilateral lower lung predomi nant airspace opacities are seen. Small bilateral pleural effusions are seen. IMPRESSION: Small bilateral pleural effusions. Bilateral lower lung predominant airspace opacities may represent atelectasis, pneumonia, and/or aspiration. ACT 112: Negative or not required by law. Electronically signed by: Juliano Foley M.D. 06/12/2021 11:21 AM
--- NOTE | 2021-06-12 11:32 | Hospitalist Progress Note ---
Date of Service June 12, 2021 Assessment & Plan (1) Cardiac arrest due to respiratory disorder: Plan: Patient had Out of hospital cardiac arrest, etiology is uncertain, most likely due to respiratory failure secondary to bilateral large pleural effusions, possibly secondary to acute diastolic CHF or low albumin due to protein loss No evidence of infection on admission Patient was successfully resuscitated.Initially intubated and ventilated in the emergency department and ICU Pleural effusions drained bilaterally. Liberated from the vent and currently saturating well on 2 L of oxygen through nasal cannula Status post left and right heart cardiac cath-nonobstructive CAD, normal left and right-sided filling pressures, moderate pulmonary hypertension (precapillary, PVR not elevated), elevated cardiac output potentially consistent with high-output heart failure. Cardiology service on consult, recommendations appreciated. (2) Acute hypoxemic respiratory failure: Plan: Probably secondary to large bilateral pleural effusions, and congestive heart failure. Large effusions could be a side effect of her CML medication, bosutinib, which is currently on hold. Patient initially intubated, has been extubated and currently saturating well on 2 L of oxygen through nasal cannula. SOB is improving, will wean as tolerated (3) Diastolic heart failure: Plan: Acute diastolic CHF suspected as above, versus pleural effusions from side effect of chemotherapy and proteinuria/hypoalbuminemia as above Recent echo as an outpatient showed preserved ejection fraction just prior to admission Echocardiogram was not repeated here but with cardiac catheterization results as above Bilateral leg edema on exam which is now improving Appreciate cardiology consultation Continue Bumex 2 mg IV twice daily, sh is making good urine Monitor input and output, daily weight For atrial fibrillation-rhythm control with amiodarone and rate control with metoprolol (4) Pleural effusion, bilateral: Plan: Large bilateral pleural effusions Right fluid is borderline exudative by light's criteria, cytology negative for malignant cells Left pleural fluid also exudative, cytology pending Her albumin in 03/2021 was normal at 4.2, but is now down to 2.2 and she has evidence of proteinuria on urinalysis and spot urine protein/creatinine ratio 24-hour urine protein pending Immunofixation, SPEP, UPEP pending Discussed her care with her primary oncologist at [place], Dr. White. He states that he does not think bosutinib is responsible for her pleural effusions, but that a sister drug to it dasatinib frequently can be. Nephrology does strongly believe that her bosutinib is responsible for her proteinuria and therefore her pleural effusions She apparently had a chest x-ray at the end of March that showed only small pleural effusions-performed at [place], therefore these have significantly worsened just in the last 6 weeks prior to admission Continue to hold bosutinib-her oncologist as this can be held for at least 1 month as her BCR abl levels on recent blood work were undetectable Pulmonology consultation appreciated If pleural effusions reaccumulate, pulmonology suggest transfer for possible VATS and pleural biopsy. (5) LORETTA (acute kidney injury): Plan: Now resolved Likely secondary to decreased renal perfusion in the setting of CHF and cardiac arrest renal Doppler negative for renal artery stenosis on the right but nondiagnostic on the left Follow BMP Renal dosing were appropriate Following with nephrology (6) Lactic acidosis: Plan: resolved (7) Abnormal LFTs: Plan: AST and ALT and alkaline phosphatase elevated upon admission likely secondary to hepatic congestion from heart failure This could also be a side effect of her Bosulif for CML LFTs continue to trend downward with diuresis Follow LFTs (8) Atrial fibrillation: Plan: Has a long history of intermittent atrial fibrillation has had ablation in the past Was in rapid atrial fibrillation throughout the day on 06/08 but now remains in sinus rhythm Continue amiodarone but increased dose to 200 mg once daily as per cardiology Was on heparin drip but held for thoracentesis She remains in sinus rhythm -Hold home Xarelto and continue Heparin in case patient needs another thoracentesis Monitor on telemetry (9) CKD (chronic kidney disease) stage 3, GFR 30-59 ml/min: Plan: Noted in outpatient records as per cardiology -Avoid nephrotoxins -renally dose meds when appropriate -follow BMP (10) Hypokalemia: Plan: resolved (11) Iron deficiency anemia: Plan: She has long history of iron deficiency and takes oral iron supplements as an outpatient Follows with hematology/oncology for her CML as an outpatient Reports last EGD and colonoscopy were probably over 5 years ago Iron studies here show significant iron deficiency with ferritin of 20 and transferrin saturation of 10% Giving IV Venofer daily x5 doses-last dose 06/12 Follow CBC She will need follow-up with GI as an outpatient potentially (12) Elevated troponin: Plan: Could be secondary to CPR from cardiac contusion versus myocardial demand ischemia from severe hypoxemia No chest pain and no ischemic changes on EKG Oxycodone as needed for chest pain that is musculoskeletal (13) Submandibular abscess: Plan: noted on CT scan, but not notable on physical examination She recently had a bottom right molar removed about 10 days prior to admission and was on clindamycin With low-grade fevers here initially but now resolved, but doubtful that they are from this small abscess seen on CT oromaxillary facial surgeon has evaluated, no need for surgery for now Continue on unasyn for 7-day course-last dose will be on 06/13 (14) Hypertension: Plan: Blood pressures here are controlled Holding home amlodipine Continue metoprolol at increased dose for atrial fibrillation (15) Hypothyroidism: Plan: TSH is normal Continue home levothyroxine (16) Proteinuria: Plan: With 2+ proteinuria and increased spot urine protein creatinine ratio 0.4 Appreciate nephrology consultation Renal ultrasound as above Thought to be secondary possibly to bosutinib Holding bosutinib for now Checking SPEP, UPEP, immunofixation Follow-up with nephrology (17) CML (chronic myelocytic leukemia): Plan: Primary oncologist is Dr. White at [place] Holding Bosulif as above Follow-up with oncology after discharge Dr White is going to retire in the coming year, patient willing to establish care with an oncologist here in [place] will arrange after disharge from the hospital Plan: DVT prophylaxis- SCDs, plan to restart Xarelto when safe from cardiac catheterization standpoint Disposition-continue PCU status PT/OT consulted Admission and Anticipated Discharge Date Admission Date: June 06, 2021 Subjective Patient seen and examined, resting in bed, denies chest pain, still with some SOB, on minimal oxygen Review of Systems Review of Systems: All systems reviewed are negative, apart from the ones contained in the history. Physical Exam Physical Exam: The patient is awake, alert and oriented 3, well developed and well nourished, normocephalic and atraumatic, lying in bed and in no acute distress. HEENT--PERRL, EOMI, mucous membranes and oropharynx mildly dry Neck--supple. No JVD. No bruits. Thyroid normal, trachea midline, no adenopathy. Heart--normal S1 and S2. No murmurs, rubs or gallops. Lungs--clear bilaterally, no respiratory distress, no accessory muscle use. Abdomen--normal bowel sounds and soft. Mild epigastric and left sided abdominal pain Extremities--no cyanosis or clubbing. trace edema. Dermatologic--normal skin turgor, normal color, no abnormal lymph nodes, no rash. Neurologic--cranial nerves II through XII grossly intact. Rheumatologic--normal range of motion. Psychiatric--normal affect. Results & Data Results & Data ([facility]) Vital Signs (Past 12 Hours) Vital Signs Temp Pulse Pulse Resp BP Pulse Ox 06/12/21 07:54 98.2 F 62 18 146/70 H 93 06/12/21 03:29 98.1 F 65 18 121/60 93 06/11/21 23:59 70 PG Care Time/CCT Total # of Minutes Spent Total Time Spent with Patient: Total time spent is greater than 50% in coordination of care (as documented) at patient's floor/unit and/or counseling patient: Coding Level of Care Code 51046 Subseq Hosp Care Lvl 2 Diagnoses Cardiac arrest due to respiratory disorder J98.9; I46.8 Acute hypoxemic respiratory failure J96.01 Diastolic heart failure I50.30 Pleural effusion, bilateral J90 LORETTA (acute kidney injury) N17.9 Lactic acidosis E87.2 Abnormal LFTs R79.89 Atrial fibrillation I48.91 CKD (chronic kidney disease) stage 3, GFR 30-59 ml/min N18.30 Hypokalemia E87.6 Iron deficiency anemia D50.9 Elevated troponin R77.8 Submandibular abscess K12.2 Hypertension I10 Hypothyroidism E03.9 Proteinuria R80.9 CML (chronic myelocytic leukemia) C92.10 Time Spent (min) 35
[2021-06-12 14:32] LABS: Partial Thromboplastin Ratio 2.5
[2021-06-12 14:56] LABS: Partial Thromboplastin Time 66.7 Seconds (21.0-31.0)
[2021-06-12] MEDS ORDERED: RIVAROXABAN 20 MG TAB PO SCH (16:30)
[2021-06-12] MEDS: SENNA 8.6 MG TAB PO SCH (20:23)
--- NOTE | 2021-06-12 22:57 | Electrocardiogram Report ---
Test Reason : Blood Pressure : / mmHG Vent. Rate : 067 BPM Atrial Rate : 067 BPM P-R Int : 184 ms QRS Dur : 094 ms QT Int : 380 ms P-R-T Axes : 035 045 023 degrees QTc Int : 401 ms Normal sinus rhythm Possible Left atrial enlargement Borderline ECG When compared with ECG of 06-JUN-2021 11:19, No significant change was found Confirmed by Zach Kelly ([id number]) on 06/12/2021 10:57:02 PM Referred By: REFERRED SELF Confirmed By:Zach Kelly
[2021-06-13] MEDS: AMPICILLIN/SULBACTAM SOD 3,000 MG in 0.9 % SODIUM CHLORIDE 100 ML IV SCH ×2 (03:49→10:59)
[2021-06-13] MEDS: LEVOTHYROXINE SODIUM 75 MCG TABLET PO SCH (05:32)
[2021-06-13] MEDS: METOPROLOL TARTRATE 25 MG TAB PO SCH ×2 (05:32→10:59)
[2021-06-13] MEDS: IRON POLYSACCHARIDE COMPLEX 150 MG CAPSULE PO SCH (07:58)
[2021-06-13] MEDS: POTASSIUM CHLORIDE CRTAB 20 MEQ TABCR PO SCH (07:59)
[2021-06-13] MEDS: AMIODARONE 200 MG TAB PO SCH (07:59)
[2021-06-13] MEDS: BUMETANIDE 2 MG in SYRINGE 0 ML IV SCH ×2 (08:00→14:54)
[2021-06-13 10:17] LABS: Hematocrit (blood only) 34.6 % (37-47); Hemoglobin 9.9 g/dL (12.0-16.0); Mean Corpuscular Hemoglobin 23.5 pg (25-34); Mean Corpuscular Hgb Conc 28.6 g/dL (32-36); Mean Platelet Volume 9.8 fL (7.4-10.4); Platelet Count 254 K/uL (130-400); RDW Coefficient of Variation 17.3 % (11.5-14.5); RDW Standard Deviation 49.2 fL (36.4-46.3); Red Blood Count 4.22 M/uL (4.2-5.4); White Blood Count 9.39 K/uL (4.8-10.8)
[2021-06-13 10:24] LABS: BUN Creatinine Ratio 14.8 (10-20); Calcium 9.1 mg/dl (8.5-10.1); Creatinine Clr Calc Pharmacy 25.4 ml/min; Est GFR (Non-African American) 49.2 ml/min; Potassium 3.6 mmol/L (3.5-5.1)
--- NOTE | 2021-06-13 14:16 | Discharge Summary ---
Date of Service June 13, 2021 Admission HPI Per Admitting Provider Patient is intubated at time of history. History was obtained by discussion with ER staff and electronic chart review. Was also in the room during portion of the time of interview with daughter and Dr. Gordon. When I returned to the room, family was no longer present. Patient has been more short of breath since December, worsening with exertion and orthopnea. Over past few days, patient became more SOB. Patient today was unale to go up a flight of stairs, as patient became more SOB, 911 was called. It also appeared that when this occurred, patient entered cardiac arrest. She was then intubated and patient was successfully resuscitated. Admission called. Principal Diagnosis chf, respiratory failure Discharge Exam The patient is awake, alert and oriented 3, well developed and well nourished, normocephalic and atraumatic, lying in bed and in no acute distress. HEENT--PERRL, EOMI, mucous membranes and oropharynx mildly dry Neck--supple. No JVD. No bruits. Thyroid normal, trachea midline, no adenopathy. Heart--normal S1 and S2. No murmurs, rubs or gallops. Lungs--clear bilaterally, no respiratory distress, no accessory muscle use. Abdomen--normal bowel sounds and soft. Mild epigastric and left sided abdominal pain Extremities--no cyanosis or clubbing. trace edema. Dermatologic--normal skin turgor, normal color, no abnormal lymph nodes, no rash. Neurologic--cranial nerves II through XII grossly intact. Rheumatologic--normal range of motion. Psychiatric--normal affect. Discharge Data Allergies Allergy/AdvReac Type Severity Reaction Status Date / Time amoxicillin Allergy Unknown Unverified 06/06/21 12:18 Consultations 06/06/21 12:30 ED Decision to Admit Stat 06/06/21 12:35 Consult Stone Unloader Stat 06/06/21 12:45 Consult Stone Unloader Routine 06/06/21 13:50 Consult Oromaxillofacial Surgery Routine 06/09/21 09:57 Consult Nephrology Routine 06/09/21 11:32 Consult Cardiology Routine Procedures Performed Operation Date: 06/10/21 10:00 Actual Procedures s Cineradiography w/Routine Exam - Addison Moran MD p Cath, Right and Left Heart - Addison Moran MD s Ultrasound Vascular Access - Addison Moran MD Ordered Studies 06/06/21 11:24 CT head/brain wo con Stat 06/06/21 11:31 CT abd pelvis wo con Stat CT chest diagnostic wo con Stat CT soft tissue neck wo con Stat 06/09/21 00:00 US duplex renal artery Routine 06/10/21 08:30 CL Cath Imgs for PACS use only Routine Hospital Course (1) Cardiac arrest due to respiratory disorder: Patient had Out of hospital cardiac arrest, etiology is uncertain, most likely due to respiratory failure secondary to bilateral large pleural effusions, possibly secondary to acute diastolic CHF or low albumin due to protein loss No evidence of infection on admission Patient was successfully resuscitated.Initially intubated and ventilated in the emergency department and ICU Pleural effusions drained bilaterally. Liberated from the vent and currently saturating well on 2 L of oxygen through nasal cannula Status post left and right heart cardiac cath-nonobstructive CAD, normal left and right-sided filling pressures, moderate pulmonary hypertension (precapillary, PVR not elevated), elevated cardiac output potentially consistent with high-output heart failure. Cardiology service on consult, recommendations appreciated. (2) Acute hypoxemic respiratory failure: Probably secondary to large bilateral pleural effusions, and congestive heart failure. Large effusions could be a side effect of her CML medication, bosutinib, which is currently on hold. Patient initially intubated, has been extubated and currently saturating well on 2 L of oxygen through nasal cannula. SOB is improving, will wean as tolerated (3) Diastolic heart failure: Acute diastolic CHF suspected as above, versus pleural effusions from side effect of chemotherapy and proteinuria/hypoalbuminemia as above Recent echo as an outpatient showed preserved ejection fraction just prior to admission Echocardiogram was not repeated here but with cardiac catheterization results as above Bilateral leg edema on exam which is now improving Appreciate cardiology consultation Continue Bumex 2 mg IV twice daily, sh is making good urine Monitor input and output, daily weight For atrial fibrillation-rhythm control with amiodarone and rate control with metoprolol (4) Pleural effusion, bilateral: Large bilateral pleural effusions Right fluid is borderline exudative by light's criteria, cytology negative for malignant cells Left pleural fluid also exudative, cytology pending Her albumin in 03/2021 was normal at 4.2, but is now down to 2.2 and she has evidence of proteinuria on urinalysis and spot urine protein/creatinine ratio 24-hour urine protein pending Immunofixation, SPEP, UPEP pending Discussed her care with her primary oncologist at [place], Dr. White. He states that he does not think bosutinib is responsible for her pleural effusions, but that a sister drug to it dasatinib frequently can be. Nephrology does strongly believe that her bosutinib is responsible for her proteinuria and therefore her pleural effusions She apparently had a chest x-ray at the end of March that showed only small pleural effusions-performed at [place], therefore these have significantly worsened just in the last 6 weeks prior to admission Continue to hold bosutinib-her oncologist as this can be held for at least 1 month as her BCR abl levels on recent blood work were undetectable Pulmonology consultation appreciated No new evidence of effusion. Pulm signed off (5) LORETTA (acute kidney injury): Now resolved Likely secondary to decreased renal perfusion in the setting of CHF and cardiac arrest renal Doppler negative for renal artery stenosis on the right but nondiagnostic on the left Follow BMP Renal dosing were appropriate Following with nephrology (6) Lactic acidosis: resolved (7) Abnormal LFTs: AST and ALT and alkaline phosphatase elevated upon admission likely secondary to hepatic congestion from heart failure This could also be a side effect of her Bosulif for CML LFTs continue to trend downward with diuresis Follow LFTs (8) Atrial fibrillation: Has a long history of intermittent atrial fibrillation has had ablation in the past Was in rapid atrial fibrillation throughout the day on 06/08 but now remains in sinus rhythm Continue amiodarone but increased dose to 200 mg once daily as per cardiology Was on heparin drip but held for thoracentesis She remains in sinus rhythm -Hold home Xarelto and continue Heparin in case patient needs another thoracentesis Monitor on telemetry (9) CKD (chronic kidney disease) stage 3, GFR 30-59 ml/min: Noted in outpatient records as per cardiology -Avoid nephrotoxins -renally dose meds when appropriate -follow BMP (10) Hypokalemia: resolved (11) Iron deficiency anemia: She has long history of iron deficiency and takes oral iron supplements as an outpatient Follows with hematology/oncology for her CML as an outpatient Reports last EGD and colonoscopy were probably over 5 years ago Iron studies here show significant iron deficiency with ferritin of 20 and transferrin saturation of 10% Giving IV Venofer daily x5 doses-last dose 06/12 Follow CBC She will need follow-up with GI as an outpatient potentially (12) Elevated troponin: Could be secondary to CPR from cardiac contusion versus myocardial demand ischemia from severe hypoxemia No chest pain and no ischemic changes on EKG Oxycodone as needed for chest pain that is musculoskeletal (13) Submandibular abscess: noted on CT scan, but not notable on physical examination She recently had a bottom right molar removed about 10 days prior to admission and was on clindamycin With low-grade fevers here initially but now resolved, but doubtful that they are from this small abscess seen on CT oromaxillary facial surgeon has evaluated, no need for surgery for now Continue on unasyn for 7-day course-last dose will be on 06/13 (14) Hypertension: Blood pressures here are controlled Holding home amlodipine Continue metoprolol at increased dose for atrial fibrillation (15) Hypothyroidism: TSH is normal Continue home levothyroxine (16) Proteinuria: With 2+ proteinuria and increased spot urine protein creatinine ratio 0.4 Appreciate nephrology consultation Renal ultrasound as above Thought to be secondary possibly to bosutinib Holding bosutinib for now Checking SPEP, UPEP, immunofixation Follow-up with nephrology (17) CML (chronic myelocytic leukemia): Primary oncologist is Dr. White at [place] Holding Bosulif as above Follow-up with oncology after discharge Dr White is going to retire in the coming year, patient willing to establish care with an oncologist here in [place] will arrange after disharge from the hospital DVT prophylaxis- SCDs, plan to restart Xarelto when safe from cardiac catheterization standpoint Disposition-continue PCU status PT/OT consulted Total Time Total Time Spent Total Time Spent (In Minutes): 35 Discharge Plan Discharge Items Patient Disposition: Home - Home Health Services Reason For Visit: RESPIRATORY FAILURE Discharge Diagnosis: CHF, Respiratory failure Condition on Discharge: Fair Activity: Resume your previous activity Lifting: Gradually increase as tolerated Non-emergency contact: Primary Care Provider, Supervisor Cigarette Making Department and Oncologist Call non-emergency contact if: you have any medication questions and your symptoms worsen Follow-up/Referrals: PCP,NO [Primary Care Provider] - Diet: Heart Healthy Addtl Attending Provider Instructions: Please make appointment to establish care with Dr Titi Dominguez,an oncologist here at [place] and also, make appointment to follow up with cardiology Pending Studies at Discharge: No Stand-Alone Forms: My [facility], Smoking Cessation Medications and DC Order Prescriptions: New amiodarone 200 mg Tablet 200 mg PO DAILY Qty: 30 RF: 0 bumetanide 2 mg tablet 2 mg PO TID Qty: 30 RF: 0 potassium chloride 20 mEq Tablet,Er Particles/Crystals 40 meq PO DAILY Qty: 30 RF: 0 Continued polysaccharide iron complex [Ferrex 150] 150 mg iron capsule 150 mg PO DAILY RF: 0 levothyroxine 75 mcg tablet 75 mcg PO DAILY RF: 0 amlodipine 10 mg tablet 10 mg PO DAILY RF: 0 metoprolol tartrate 25 mg tablet 25 mg PO BID RF: 0 Xarelto 20 mg tablet 20 mg PO HS RF: 0 One-A-Day Women's Complete 18 mg-400 mcg- 25 mcg Tablet 1 tab PO DAILY RF: 0 Discontinued furosemide 40 mg tablet 40 mg PO BID RF: 0 acetaminophen 325 mg Tablet 325 mg PO QID PRN (Reason: Headache) RF: 0 clindamycin HCl 300 mg capsule 300 mg PO TID RF: 0 potassium chloride [Klor-Con M20] 20 mEq Tablet,Er Particles/Crystals See Rx Instructions .ROUTE .COMPLEX RF: 0 amiodarone 100 mg tablet 100 mg PO DAILY RF: 0 Bosulif 400 mg Tablet 400 mg PO DAILY RF: 0 Discharge Orders: Discharge Order (Routine); Ordered 06/13/21 Ordered By: Bryn Sumner Admission Data Admit Date/Time: 06/06/21 12:43 Attending Provider: Bryn Sumner Admit Provider: Fabrizio Shabazz Primary Care Provider: PCP,NO Other Providers: Lefty Norman ; Fabrizio Shabazz ; Ty Zepeda Helen M. ; Rudi Conde ; Ji Joe ; Shabana Helms ; Juan Luis Butts ; Addison Moran Coding Level of Care Code D/C DAY MANAGEMENT >30 MINS Diagnoses Cardiac arrest due to respiratory disorder J98.9; I46.8 Acute hypoxemic respiratory failure J96.01 Diastolic heart failure I50.30 Pleural effusion, bilateral J90 LORETTA (acute kidney injury) N17.9 Lactic acidosis E87.2 Abnormal LFTs R79.89 Atrial fibrillation I48.91 CKD (chronic kidney disease) stage 3, GFR 30-59 ml/min N18.30 Hypokalemia E87.6 Iron deficiency anemia D50.9 Elevated troponin R77.8 Submandibular abscess K12.2 Hypertension I10 Hypothyroidism E03.9 Proteinuria R80.9 CML (chronic myelocytic leukemia) C92.10 Time Spent (min) 35
[2021-06-15 09:27] LABS: Free Kappa 21.9 mg/L (3.3-19.4); Free Kappa/Lambda Ratio 1.22 (0.26-1.65)
== END 2021-06-13 15:31 | disposition home health service (06) | DRG 208 ==
LOC: ED 11:12 → 1E 12:43 → SUATTDRO 12:43 → 1E 16:09